=== PATIENT | male | born 1970 | race Caucasian/White ===

== ENCOUNTER 2019-12-11 17:10 | Outpatient (CLI) | payer OTHER, SELFPAY ==
--- NOTE | ~2019-12-11 | XR_ITS ---
XR cervical spine 4-5V 12/11/2019 17:38 Indication: Difficulty swallowing Procedure: 4 views of the cervical spine Comparison: No prior studies for comparison. Findings: Normal cervical lordosis. Vertebral body heights are maintained. Mild endplate degenerative changes at C4-5. No fracture or traumatic malalignment. There is mild multilevel facet and uncinate degenerative change. Lung apices are normal. Odontoid process is normal. No prevertebral soft tissue abnormality. Impression: 1: Mild cervical spondylosis. Reviewed, dictated and finalized at location A. UNT SOLUTIONS ANALYST Impression: 1: Mild cervical spondylosis.
== END 2019-12-11 17:11 | disposition home or self-care (01) ==
LOC: ANHIMG 17:18
PROVIDERS: PCP Family Medicine; Visit Provider Nurse Practitioner Family
DX: R13.10 Dysphagia, unspecified (principal); M25.78 Osteophyte, vertebrae; M47.892 Other spondylosis, cervical region
CPT/HCPCS: 72050

== ENCOUNTER 2020-01-01 12:34 | Emergency (ER) | payer OTHER, SELFPAY ==
--- NOTE | ~2020-01-01 | XR_ITS ---
EXAMINATION: XR lumbar spine 2-3V DATE: 01/01/2020 14:11 INDICATION: Low back pain. Fall. TECHNIQUE: 3 views of lumbar spine were obtained. COMPARISON: None. FINDINGS: Bone alignment is normal. Vertebral body heights are normal. There is mildly decreased disc height at L5-S1. There are endplate osteophytes at multiple levels. There is multilevel mild to mode rate facet joint osteoarthritis. IMPRESSION: 1. Mild lumbar spondylosis. Reviewed, dictated and finalized at location A. F BOX FINISHER IMPRESSION: 1. Mild lumbar spondylosis.
[2020-01-01 13:09] VITALS: BP 149/94; PULSE 80; RESP 18; TEMP 37.3; O2SAT 100
--- NOTE | 2020-01-01 13:40 | ED.BACK ---
HPI - Back Pain/Injury General Chief Complaint: Back Pain/Injury Stated Complaint: back pain Time Seen by Provider: 01/01/20 13:38 Source: patient Mode of arrival: ambulatory Limitations: no limitations History of Present Illness HPI Narrative: The pt is a 49 y/o male who presents to the ED c/o lower back pain secondary to a fall onset [id number] today. Pt states that he fell and landed on his bath tub. He notes that his pain radiates to the coccyx. He denies any numbness/tingling. MD elicited complaint: back pain Onset (ago): hour(s) (1.5-2) Location: lumbar spine ( Lower ) Radiation: other (Coccyx) Context: fall Associated symptoms: denies other symptoms Related Data Allergies Allergy/AdvReac Type Severity Reaction Status Date / Time No Known Drug Allergies Allergy Mild Verified 03/29/19 17:51 Review of Systems Review of Systems: All systems reviewed & are unremarkable except as noted in HPI and below Musculoskeletal: Musculoskeletal: Reports back pain (Lower back, radiates to coccyx) Neurologic: Denies numbness and Denies tingling PMFSH Past Medical History Medical History (Updated 01/01/20 @ 15:04 by Colby Esparza MD) Anxiety Surgical History Surgical History (Updated 01/01/20 @ 13:53 by Dieter Frank) No history of previous surgery Family History Family History (Updated 04/13/19 @ 13:55 by DOCTOR UNKNOWN) Other Hypertension Social History Social History Smoking status: Current every day smoker Alcohol intake: current Gender identity (if verbalized by the patient): Male Comments PCP: Dr. Gastelum Exam Const: General: cooperative, healthy appearing, comfortable, no acute distress, well developed, alert and awake; No confusion Orientation/consciousness: oriented to person, oriented to place, oriented to time, patient oriented x3 and No confusion Limitations: no limitations Neck: Neck: full ROM Resp: Effort & Inspection: normal respiratory effort, able to speak in complete sentences, no respiratory distress and not tachypneic Auscultation: clear to auscultation bilaterally, no crackles, no rales, no rhonchi and no wheezes Cardio: Rate: regular rate Rhythm: regular rhythm Back/Spine/Pelvis: Thoracic/Lumbar Spine: paraspinal muscle tenderness on the left in the lower lumbar, No thoracic spinal tenderness and No lumbar spinal tenderness Skin: General skin exam: normal color, no rashes or lesions noted, elasticity normal and turgor normal Neuro: General: oriented to person, oriented to place, oriented to time, patient oriented x3, tone normal and moves all extremities Extrem: General: normal to inspection, full ROM and capillary refill normal Psych: Mental Status: mental status grossly normal Speech and movement: Normal speech and movement present Affect: normal affect Attitude: cooperative Course Vital Signs Vital signs: Vital Signs Temperature 37.3 C 01/01/20 13:09 Pulse Rate 80 01/01/20 13:09 Respiratory Rate 18 01/01/20 13:09 Blood Pressure 149/94 H 01/01/20 13:09 Pulse Oximetry 100 01/01/20 13:09 Temperature 37.3 C 01/01/20 13:09 Pulse Rate 80 01/01/20 13:09 Respiratory Rate 18 01/01/20 13:09 Blood Pressure 149/94 H 01/01/20 13:09 Pulse Oximetry 100 01/01/20 13:09 MDM - Back Pain/Injury Imaging Data Radiologist's impression: ITS Impressions Lumbar Spine X-Ray 01/01/20 14:17 IMPRESSION: 1. Mild lumbar spondylosis. Discharge Plan Discharge Clinical Impression: Acute lumbar myofascial strain Qualifiers: Encounter type: initial encounter Qualified Code(s): S39.012A - Strain of muscle, fascia and tendon of lower back, initial encounter Patient Disposition: Home, Self-Care Condition: Improved Instructions: Antibiotic Form, Acute Low Back Pain (ED) Prescriptions: New naproxen [Naprosyn] 500 mg tablet 500 mg PO BID PRN (Reason: pain) Qty: 10 RF: 0 cyclobenzaprine 10 mg tablet
[2020-01-01] MEDS: KETOROLAC (*BKC) 60 MG/2 ML VIAL 30 MG IM (14:19)
[2020-01-01 15:50] VITALS: BP 162/100; PULSE 68; RESP 16; O2SAT 100
== END 2020-01-01 15:52 | disposition home or self-care (01) ==
PROVIDERS: Emergency Provider Emergency Medicine; PCP Family Medicine
DX: S39.012A Strain of muscle, fascia and tendon of lower back, initial encounter (principal); M47.816 Spondylosis without myelopathy or radiculopathy, lumbar region; F17.200 Nicotine dependence, unspecified, uncomplicated; W01.198A Fall on same level from slipping, tripping and stumbling with subsequent striking against other object, initial encounter
CPT/HCPCS: 72100; 96372; 99283; J1885

== ENCOUNTER 2020-01-22 08:54 | Outpatient (CLI) | payer OTHER, SELFPAY ==
--- NOTE | ~2020-01-22 | XR_ITS ---
EXAMINATION: XR barium swallow modified DATE: 01/22/2020 09:48 INDICATION: Dysphagia. TECHNIQUE: The patient was given barium-containing material of multiple consistencies to swallow by nimco fung speech pathologist while I performed fluoroscopy. Dose-area product was 2.7 Gy-cm2. 3.5 minutes fluoroscopy time FINDINGS: Oral Preparatory Stage: Within functional limits Oral Stage: Within functional limits Pharyngeal Phase: Mild laryngeal penetration, cleared; no aspiration Mild vallecular residue and mild pharyngeal wall residue Cervical/Esophageal Stage: Within functional limits IMPRESSION: Modified esophagram findings as above. Please refer [facility]. Reviewed, dictated and finalized at Location A. Reviewed, dictated and finalized at location A. IMPRESSION: Modified esophagram findings as above. Please refer to the speech t herapy report for specific recommendations.
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
== END 2020-01-22 08:55 | disposition home or self-care (01) ==
PROVIDERS: PCP Family Medicine; Visit Provider Family Medicine
DX: R13.10 Dysphagia, unspecified (principal); Z79.1 Long term (current) use of non-steroidal anti-inflammatories (NSAID)
CPT/HCPCS: 92611

== ENCOUNTER 2020-07-19 15:30 | Outpatient (RCR) | payer OTHER, SELFPAY ==
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
--- NOTE | 2020-06-23 16:40 | PTOPEVAL ---
PHYSICAL THERAPY PLAN OF CARE UPDATE AND PROGRESS REPORT Thank you for referring Ernesto Solis to [facility] [place].? The patient is scheduled to be seen for therapy? 1x/week for 4 weeks. Please review, sign, date and return this plan of care GIOVANNA. I agree with and certify that the following plan of care is medically necessary. Referring Physician Date Attending Provider: Cece Julio, COMBER TENDER-BC Progress Diagnosis cervicalgia Cause insidious Subjective Information Ernesto is here today with c/o Query Text:As Reported By Patient/ chronic neck pain. reports Family that when he really hurts he just tries to sleep it off. States that he will try to do an exercise but it generally does not work and he tries to sleep. States that when he does not hurt he will do his exercises as much as he can. States he is going to see a prenatal nurse for another scope. Has not gotten an appointment with the new othopedic doctor yet. States that he has headaches every day and this has no changed with therapy. Self Report Pain Assessment Upper Spine, Cervical Reported Pain Level 4 Pain Frequency Chronic,Continuous Pain Score Pain Score 4: Self Report Additional Pain Score Comments didn't fall asleep until 3: 30AM last night Cervical and Lumbar ROM Cervical ROM Cervical Flexion (0-60) 40 Query Text:Active in Degrees Cervical Extension (0-70) 55 Query Text:Active in Degrees Cervical Rotation Right (0-90) 30 Query Text:Active in Degrees Cervical Rotation Left (0-90) 45 Query Text:Active in Degrees Cervical ROM Comments patient notes popping in anterior neck when rotation cervical spine Upper Extremity Range of Motion General Upper Extremity Range of Motion Reason Not Measured WFL/Left,WFL/Right Upper Extremity Muscle Strength Testing Scapular/Shoulder Bilateral Scapular Retraction - Rhomboid 3- Fair - Scapular Retraction - Middle Trapezius 3- Fair - Scapular Retraction - Lower Trapezius 3- Fair - Scapular Protraction - Serratus 3- Fair - Shoulder Flexion Strength 4- Good - Shoulder Extension Strength 4 Good Shoulder Abduction Strength 4 Good Shoulder Medial Rotation Strength 4 Good Shoulder Lateral Rotation Strength 4 Good Muscle L
--- NOTE | 2020-06-29 10:38 | PCPTNOTE ---
Patient did not show up for scheduled appointment this date; Called and left voicemail with reminder for next appointment 07/06/20 @ 14:45.
--- NOTE | 2020-07-19 16:27 | PTOPEVAL ---
PHYSICAL THERAPY DISCHARGE NOTE Thank you for referring Ernesto Solis to [facility].? Please review, sign, date and return this plan of care GIOVANNA. I agree with and certify that the following plan of care is medically necessary. Referring Physician Date Attending Provider: Cece Julio, AUTOMOBILE MECHANIC ASSISTANT-BC Discharge cervicalgia Cause insidious Subjective Information Ernesto continues to report Query Text:As Reported By Patient/ pain in cervical spine that is Family functionally limiting and limiting his nutrition intake. States specifically that today the front of his neck feels really tight and as a result he is not been eating much today. States that most mornings he wakes up feeling as though he is choking. Self Report Pain Assessment Upper Spine, Cervical Reported Pain Level 2 Pain Frequency Chronic,Continuous Pain Behaviors Anxious,Grimacing,Guarding Cervical and Lumbar ROM Cervical ROM Cervical Flexion (0-60) 40 Query Text:Active in Degrees Cervical Extension (0-70) 55 Query Text:Active in Degrees Cervical Rotation Right (0-90) 45 Query Text:Active in Degrees Cervical Rotation Left (0-90) 60 Query Text:Active in Degrees Cervical ROM Comments patient notes popping in anterior neck when rotation cervical spine Upper Extremity Range of Motion General Upper Extremity Range of Motion Reason Not Measured WFL/Left,WFL/Right Gross Upper Extremity Range of Motion somewhat tight to elevation Comments motions because of short periscapular muscles and stiff thoracic spine Upper Extremity Muscle Strength Testing Scapular/Shoulder Bilateral Scapular Retraction - Rhomboid 3 Fair Scapular Retraction - Middle Trapezius 3 Fair Scapular Retraction - Lower Trapezius 3 Fair Scapular Protraction - Serratus 3 Fair Shoulder Flexion Strength 4+ Good + Shoulder Extension Strength 4+ Good + Shoulder Abduction Strength 4+ Good + Shoulder Medial Rotation Strength 5 Normal Shoulder Lateral Rotation Strength 5 Normal Muscle Length Testing Muscle Length Testing Scalene Group Muscle Length (R) Moderate Tightness,(L) Query Text: Moderate Tightness Latissmus Dorsi Muscle Length (R) Moderate Tightness,(L) Moderate Tightness Upper Trapezius Muscle Length (R) Moderate Tightness,(L) Moderate Tightness Levaetor Scapulae Muscle
== END 2020-08-01 11:11 | disposition home or self-care (01) ==
LOC: ANHPT 15:30
PROVIDERS: PCP Family Medicine; Visit Provider Nurse Practitioner Family
DX: M54.12 Radiculopathy, cervical region (principal)
CPT/HCPCS: 97110; 97140; 97162; 97163

== ENCOUNTER 2020-09-26 12:30 | Outpatient (RCR) | payer OTHER, SELFPAY ==
--- NOTE | 2020-08-03 15:25 | PTOPEVAL ---
PHYSICAL THERAPY EVALUATION AND PLAN OF CARE Thank you for referring Ernesto Solis to [facility].? The patient is scheduled to be seen for therapy? 2x/week for 4 weeks. Please review, sign, date and return this plan of care GIOVANNA. I agree with and certify that the following plan of care is medically necessary. Referring Physician Date Attending Provider: Cece Julio, PROFESSIONAL ENGINEER-BC Evaluation Problem Diagnosis low back pain Onset 2017 Cause football tackled Subjective Information Ernesto is here today for Query Text:As Reported By Patient/ evaluation of low back pain. Family Pain started in 2016 when was football tackeled (no playing football) and landed on his back and then hit his head. ( Was discharged on 07/19/2020 from treatment of cervical spine). He reports that his pain is really all the same. States that it all depends on what he is doing. He has had episodes where he is trying to stand up from a chair and he feels severe pain in the lower back that bring him to his knees. Last year was experiencing numbness/tingling /electrical feelings down the leg, but states he has not had that sensation in a while. He has recently been experiencing a tightness on the back of the right leg. Diagnostic Tests MRI For This Problem Yes: 2018: mild degen changes, mild facet stenosis, L5-S1 4m posterior bulge Self Report Pain Assessment Bilateral Spine, Lumbar Reported Pain Level 3 Pain Description Aching,Pulling,With Movement Pain Frequency Chronic,Continuous Lowest Pain Intensity 0 Greatest Pain Intensity 7 Pain Aggravating Factors Lifting Other Pain Aggravating Factors sit>stand, reaching overhead Pain Behaviors None Pain Score Pain Score 3: Self Report Cervical and Lumbar ROM Lumbar ROM Lumbar Flexion (0-90) 30 Query Text:Active in Degrees Lumbar Flexion Active Knee Query Text:Hands to: Lumbar Extension (0-40) 4 Query Text:Active in Degrees Lateral Rotation Right (0-45) 15 Query T
--- NOTE | 2020-08-24 13:28 | PCPTNOTE ---
Patient was seen today for 1st treatment since initial evaluation on 08/03/20. We were unable to reach him for scheduling appointments until today; therefore, POC will be extended until 09/20/2020.
--- NOTE | 2020-08-31 11:26 | PCPTNOTE ---
Patient did not show up for scheduled appointment this date; called and left voicemail reminding of next appointment on SaturdaySep 02 @ 1:45.
--- NOTE | 2020-09-02 14:15 | PCPTNOTE ---
Patient did not show up for scheduled appointment this date. Called and left a voicemail for Pt about missed appointment and reminded him of his next appointment on 09/05/20 at 14:00.
--- NOTE | 2020-09-08 14:49 | PCPTNOTE ---
Patient did not show up for scheduled appointment this date; Called patient who answered the phone stating he didn't even realized he had an appointment. Patient stated he has so many other things going on right now didn't think he had an appointment. Reminded about Saturday's appointment stating he will be there.
--- NOTE | 2020-09-19 12:48 | PCPTNOTE ---
Patient did not show up for scheduled appointment this date. Called and spoke with patient. He states he read his appointment time wrong and was unable to make it. He states he did try to call to let us know he would not make it. He will be here on , 09/22, for his next appointment.
--- NOTE | 2020-09-22 13:11 | PCPTNOTE ---
Patient did not show up for scheduled appointment this date; Called and left voicemail for next appointment September 26 @12:30.
--- NOTE | 2020-09-26 13:25 | PTOPEVAL ---
PHYSICAL THERAPY DISCHARGE NOTE Thank you for referring Ernesto Solis to [facility].? Please review, sign, date and return this plan of care GIOVANNA. I agree with and certify that the following plan of care is medically necessary. Referring Physician Date Attending Provider: Cece Julio, RAPID EXTRACTOR OPERATOR-BC Discharge Diagnosis low back pain Onset 2017 Cause football tackled Subjective Information It has been almost 2 months Query Text:As Reported By Patient/ since initial evaluation for Family patient's back pain. He continues to report significant pain that impairs his function. States today is a normal day, headache, backache, feeling off balance. States that his back really feels the same stating it feels alright when I leave here, but the next day it comes right back. States that he does try to do his stretches and exercises but also reports that he does not always do them when he has increased symptoms. Self Report Pain Assessment Bilateral Spine, Lumbar Reported Pain Level 4 Pain Description Aching,Pulling,With Movement Pain Frequency Chronic,Continuous Pain Aggravating Factors Lifting Other Pain Aggravating Factors sit>stand, reaching overhead Pain Behaviors None Interventions Used Interventions Used By Clinicians Exercise,Heat Cervical and Lumbar ROM Lumbar ROM Lumbar Flexion (0-90) 45 Query Text:Active in Degrees Lumbar Flexion Active Knee Query Text:Hands to: Lumbar Extension (0-40) 4 Query Text:Active in Degrees Lateral Rotation Right (0-45) 20 Query Text:Active in Degrees Lateral Rotation Left (0-45) 20 Query Text:Active in Degrees Lower Extremity Range of Motion General Lower Extremity Range of Motion Gross Lower Extremity Range of Motion generally WNL; 0deg hip IR at Comments 90deg. Lower Extremity Muscle Strength Testing Hip Strength Bilateral Hip Flexion Strength 5 Normal Hip Extension Strength 3+ Fair + Hip Abduction Strength 5 Normal Knee Strength Bilateral Knee Flexion Strength 5 Normal Knee Extension Strength 5 Normal Palpation Assessment Palpation Palpation severe tightness noted to bilate
== END 2020-10-17 11:25 | disposition home or self-care (01) ==
LOC: ANHPT 12:30
PROVIDERS: PCP Family Medicine; Visit Provider Nurse Practitioner Family
DX: M54.5 Low back pain (principal); M54.16 Radiculopathy, lumbar region
CPT/HCPCS: 97110; 97140; 97162

== ENCOUNTER 2021-01-12 17:11 | Outpatient (CLI) | payer MEDICARE, MEDICAID, SELFPAY ==
--- NOTE | ~2021-01-12 | XR_ITS ---
EXAMINATION: XR shoulder RT min 2V INDICATION: Right shoulder pain TECHNIQUE: Four views of the right shoulder are submitted. COMPARISON: None FINDINGS: Normal alignment. No fracture. Glenohumeral and acromioclavicular joint spaces are normal. Soft tissues are unremarkable. IMPRESSION: 1. No acute osseous abnormality. Reviewed, dictated and finalized at location A. FEEDER
--- NOTE | ~2021-01-12 | XR_ITS ---
EXAMINATION: XR wrist LT min 3V DATE: 01/12/2021 17:51 INDICATION: Left wrist pain after fall TECHNIQUE: Posteroanterior, ulnar deviation, oblique, and lateral views of the left wrist were obtain ed. COMPARISON: None available FINDINGS: There is no fracture, dislocation, or subluxation. The bones, soft tissues, and joint space s are normal. IMPRESSION: 1. No acute osseous abnormality. Reviewed, dictated and finalized at location A. H NURSE
--- NOTE | ~2021-01-12 | XR_ITS ---
EXAMINATION: XR hand LT min 3V DATE: 01/12/2021 17:51 INDICATION: Left hand pain TECHNIQUE: Posteroanterior, lateral, and oblique views of the affected hand were obtained. COMPARISON: None. FINDINGS: . There is no fracture, dislocation, or subluxation. The bones, soft tissues, and joint spa jason are normal. IMPRESSION: 1. No acute osseous abnormality. Reviewed, dictated and finalized at location A. ATOR SPECIALIST
== END 2021-01-12 17:12 | disposition home or self-care (01) ==
PROVIDERS: PCP Family Medicine
DX: M25.511 Pain in right shoulder (principal); M79.642 Pain in left hand
CPT/HCPCS: 73030; 73110; 73130

== ENCOUNTER 2021-03-15 18:50 | Emergency (ER) | payer MEDICARE, MEDICAID, SELFPAY ==
--- NOTE | ~2021-03-15 | XR_ITS ---
EXAMINATION: XR shoulder LT min 2V DATE: 03/15/2021 19:25 INDICATION: Left shoulder injury. TECHNIQUE: 5 views of left shoulder were obtained. COMPARISON: None. FINDINGS: Bone alignment is normal. No fracture. There is mild osteoarthritis of glenohumeral joint a nd acromioclavicular joint. IMPRESSION: 1. Mild polyarticular osteoarthritis. Reviewed, dictated and finalized at location A.
--- NOTE | ~2021-03-15 | XR_ITS ---
EXAMINATION: XR wrist RT min 3V DATE: 03/15/2021 19:25 INDICATION: Right wrist injury. TECHNIQUE: 4 views of right wrist were obtained. COMPARISON: None. FINDINGS: Bone alignment is normal. No fracture. Joint spaces are well maintained. IMPRESSION: 1. Normal right wrist. Reviewed, dictated and finalized at location A. IMPRESSION: 1. Normal right wrist.
[2021-03-15 18:54] VITALS: BP 136/89; PULSE 80; RESP 16; TEMP 36.4; O2SAT 96
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
[2021-03-15 19:52] VITALS: BP 134/85; PULSE 73; RESP 18; O2SAT 98
== END 2021-03-15 20:00 | disposition home or self-care (01) ==
LOC: ANHED 19:53
PROVIDERS: Emergency Provider Emergency Medicine; PCP Family Medicine
DX: S63.501A Unspecified sprain of right wrist, initial encounter (principal); F41.9 Anxiety disorder, unspecified; F17.200 Nicotine dependence, unspecified, uncomplicated; M19.012 Primary osteoarthritis, left shoulder; Y35.813A Legal intervention involving manhandling, suspect injured, initial encounter
CPT/HCPCS: 73030; 73110; 99284

== ENCOUNTER 2021-04-08 03:09 | Emergency (ER) | payer MEDICARE, MEDICAID, SELFPAY ==
--- NOTE | ~2021-04-08 | XR_ITS ---
EXAMINATION: XR chest 2V DATE: 04/08/2021 03:30 INDICATION: Sternal chest pain. TECHNIQUE: Frontal and lateral views of the chest were obtained. COMPARISON: Chest 2 views 06/26/2019 FINDINGS: There is mild scarring at the lung apices. No pleural effusion or pneumothorax. The heart s ize is normal. There is mild chronic anterior wedging of multiple vertebral bodies. IMPRESSION: 1. Stable mild scarring at the lung apices. Reviewed, dictated and finalized at location A.
[2021-04-08 03:10] VITALS: BP 154/104; PULSE 97; RESP 12; TEMP 37.2; O2SAT 98
--- NOTE | 2021-04-08 03:17 | ECG_ITS ---
Measurements Intervals [place] Rate: 95 P: 48 DC: 155 QRS: -33 QRSD: 103 T: 52 QT: 338 QTc: 427 Interpretive Statements SINUS RHYTHM LEFT AXIS DEVIATION INCOMPLETE RIGHT BUNDLE BRANCH BLOCK ANTEROSEPTAL INFARCT, AGE INDETERMINATE BASELINE ARTIFACT- II, III, AVR, AVF, V1, V3-V6 ABNORMAL ECG Electronically Signed On 04-08-2021 7:42:13 CDT by Yusuf Conley D.O.
[2021-04-08 03:21] VITALS: O2SAT 97
[2021-04-08 03:31] LABS: Basophils Absolute Auto 0.1 K/mm3 (0.0-0.1); Basophils Percent Auto 0.5 % (0.2-1.2); Eosinophils Absolute Auto 0.1 K/mm3 (0-0.3); Eosinophils Percent Auto 1.2 % (0-4.4); Hematocrit 43.9 % (42.0-52.0); Hemoglobin 14.9 g/dL (14.0-18.0); Immature Granulocyte Absolute 0.08 K/mm3 (0.00-0.031); Immature Granulocyte Percent A 0.8 % (0-0.5); Lymphocytes Percent Auto 17.8 % (18.3-44.2); Mean Corpuscular HGB Conc 33.9 g/dl (32-36); Mean Corpuscular Hemoglobin 29.2 pg (26-34); Mean Corpuscular Volume 85.9 fl (80-100); Monocytes Percent Auto 9.8 % (2.6-8.5); Neutrophils Absolute Auto 7.1 K/mm3 (1.3-6.7); Neutrophils Percent Auto 69.9 % (45.5-73.1); Platelet Count Result 193 k/mm3 (150-375); Red Blood Count 5.11 M/mm3 (4.6-6.20); Red Cell Distribution Width 15.2 % (11.5-14.5); White Blood Count 10.1 K/mm3 (4.5-10.0)
[2021-04-08 03:41] LABS: Anion Gap 12 mmol/L (8-16); Blood Urea Nitrogen 10 mg/dL (9-20); Calcium 9.2 mg/dL (8.4-10.2); Carbon Dioxide 25 mmol/L (22-30); Chloride 106 mmol/L (98-107); Estimated CRCL calculation 90 ml/min; Estimated Glomerular Filt Rate > 60; Glucose 96 mg/dL (75-110); INR 0.9; Partial Thromboplastin Time 29.3 SECONDS (22.3-36.8); Potassium 4.1 mmol/L (3.4-5.0); Sodium 143 mmol/L (137-145)
[2021-04-08 03:49] VITALS: BP 149/96; PULSE 70; RESP 21; O2SAT 98
[2021-04-08 03:53] LABS: Troponin I < 0.012 ng/mL (0.000-0.034)
[2021-04-08] MEDS: BELLADONNA ALK/PHENOB ELIX 10 ML, MAG HYDROX/ALUMINUM HYD/SIMETH 30 ML, LIDOCAINE HCL 2... PO (04:07)
--- NOTE | 2021-04-08 05:12 | ED.GENADULT ---
HPI - General Adult General Chief complaint: Chest Pain Stated complaint: CHEST PAIN X 20-30 MINUTES Time Seen by Provider: 04/08/21 03:19 History of Present Illness HPI narrative: Patient is a 51-year-old male who presents ER with chest pain. Low center of the chest. Ongoing intermittently throughout the day. Related to him drinking alcohol. Reports he drank a lot of vodka and also 9 [employer] tall boys. No nausea or vomiting. Unsure if it is related to acid reflux. No radiation of the pain. No exertional component. Unsure what improves his discomfort. Had some improvement with nitro by EMS. No history of coronary disease. Related Data Home Medications Medication Instructions Recorded Confirmed albuterol sulfate 90 mcg/actuation 1 puff INHALATION Q4H PRN 04/28/20 aerosol inhaler buspirone 5 mg tablet 5 mg PO DAILY tablet 04/28/20 lisinopril 10 mg tablet 10 mg PO DAILY 04/28/20 Allergies Allergy/AdvReac Type Severity Reaction Status Date / Time No Known Drug Allergies Allergy Mild Unknown Verified 04/08/21 03:19 Review of Systems Review of Systems: All systems reviewed & are unremarkable except as noted in HPI and below Constitutional: Constitutional: Denies chills, Denies fever(s) and Denies weakness ENT: Denies nasal congestion and Denies sore throat Cardiovascular: Cardiovascular: Reports chest pain, Denies rapid heart rate and Denies radiating jaw, neck or arm pain Respiratory: Respiratory: Denies cough, Denies dyspnea and Denies wheezing Gastrointestinal: Gastrointestinal: Denies abdominal pain, Denies nausea and Denies vomiting PMFSH Past Medical History Medical History (Updated 04/08/21 @ 06:54 by Edil Millan MD) Anxiety Hypertension Surgical History Surgical History No history of previous surgery Family History Family History Other Hypertension Social History Social History (Updated 04/08/21 @ 05:14 by Edil Millan MD) Smoking status: Current every day smoker Alcohol intake: current Gender identity (if verbalized by the patient): Male Exam Narrative: Exam Narrative: GENERAL: Well-appearing, well-nourished, and in no acute distress. HEAD: Normocephalic, atraumatic. ENT: Mucous membranes moist. Poor dentition. CHEST: Clear to auscultation. No respiratory distress. HEART: Regular rate and rhythm. Normal peripheral pulses. ABDOMEN: Soft, nontender, nondistended. EXTREMITIES: Normal range of motion. No edema. SKIN: Warm, dry, no rash. NEURO: Alert and oriented x3. PSYCH: Normal mood and affect. Course Course Emergency Course: Troponin negative x2. Received GI cocktail. Discharge home. Vital Signs Vital signs: Vital Signs Temperature 98.9 F 04/08/21 03:10 Pulse Rate 97 04/08/21 03:10 Respiratory Rate 12 04/08/21 03:10 Blood Pressure 154/104 H 04/08/21 03:10 Pulse Oximetry 98 04/08/21 03:10 Temperature 98.9 F 04/08/21 03:10 Pulse Rate 91 04/08/21 06:34 Respiratory Rate 19 04/08/21 06:34 Blood Pressure 135/103 H 04/08/21 06:34 Pulse Oximetry 97 04/08/21 06:34 Medical Decision Making Vital Signs Vital Signs: Vital Signs Temperature 98.9 F 04/08/21 03:10 Pulse Rate 97 04/08/21 03:10 Respiratory Rate 12 04/08/21 03:10 Blood Pressure 154/104 H 04/08/21 03:10 Pulse Oximetry 98 04/08/21 03:10 Temperature 98.9 F 04/08/21 03:10 Pulse Rate 91 04/08/21 06:34 Respiratory Rate 19 04/08/21 06:34 Blood Pressure 135/103 H 04/08/21 06:34 Pulse Oximetry 97 04/08/21 06:34 Lab Data Result diagrams: 04/08/21 03:23 04/08/21 03:23 Labs: Lab Results 04/08/21 04/08/21 04/08/21 Range/Units 03:23 03:23 03:23 WBC 10.1 H (4.5-10.0) K/mm3 RBC 5.11 (4.6-6.20) M/mm3 Hgb 14.9 (14.0-18.0) g/dL Hct 43.9 (42.0-52.0) % MCV 85.9 (80-100)
[2021-04-08 05:15] VITALS: BP 135/100; PULSE 71; RESP 16; O2SAT 97
[2021-04-08 06:34] VITALS: BP 135/103; PULSE 91; RESP 19; O2SAT 97
[2021-04-08 06:43] LABS: Troponin I < 0.012 ng/mL (0.000-0.034)
[2021-04-08 07:07] VITALS: BP 160/100; PULSE 72; RESP 14; O2SAT 99
== END 2021-04-08 07:07 | disposition home or self-care (01) ==
PROVIDERS: Emergency Provider Emergency Medicine; PCP Family Medicine
DX: K21.9 Gastro-esophageal reflux disease without esophagitis (principal); F41.9 Anxiety disorder, unspecified; I10 Essential (primary) hypertension; F17.200 Nicotine dependence, unspecified, uncomplicated; I45.10 Unspecified right bundle-branch block; R94.31 Abnormal electrocardiogram [ECG] [EKG]
CPT/HCPCS: 36415; 71046; 80048; 84484; 85025; 85610; 85730; 93005; 99284; A9270

== ENCOUNTER 2021-07-13 08:42 | Outpatient (CLI) | payer MEDICARE, MEDICAID, SELFPAY ==
--- NOTE | ~2021-07-13 | US_ITS ---
EXAMINATION: US right upper quadrant DATE: 07/13/2021 09:16 INDICATION: Elevated liver enzymes TECHNIQUE: Multiple grayscale and Doppler ultrasound images of the abdomen were obtained. COMPARISON: 03/02/2019 FINDINGS: The head, body, and tail of the pancreas are normal. The liver is normal with normal echoge nicity and echotexture. No surface nodularity. Normal hepatopetal flow in the main portal vein. The g allbladder is normal with no abnormal wall thickening, pericholecystic fluid or stones. The normal co mmon bile duct measures 3 mm. There was no sonographic Mcnulty sign. IMPRESSION: 1. No sonographic correlate for the patient's symptoms. Reviewed, dictated and finalized at location A.
== END 2021-07-13 08:43 | disposition home or self-care (01) ==
PROVIDERS: PCP Family Medicine; Visit Provider Nurse Practitioner
DX: R94.2 Abnormal results of pulmonary function studies (principal)
CPT/HCPCS: 76705

== ENCOUNTER 2022-01-30 10:31 | Emergency (ER) | payer MEDICARE, MEDICAID, SELFPAY ==
[2022-01-30 11:07] VITALS: BP 170/110; PULSE 81; RESP 16; TEMP 36.6; O2SAT 97
[2022-01-30 12:06] LABS: Add Urine Microscopic? YES; Appearance Urine Clear (Clear); Bilirubin Urine Negative (Negative); Blood Urine Negative (Negative); Color Urine Yellow (Yellow); Glucose Urine UA Negative (Negative); Ketones Urine Negative (Negative); Leukocyte Esterase Ur 1+ LEU/UL (Negative); Nitrate Urine Negative (Negative); Protein Urine Negative (Negative); Specific Grav Ur 1.009 (1.001-1.035); Urobilinogen Urine Negative mg/dL (<2.0); WBC Urine 21-30 /hpf
--- NOTE | 2022-01-30 12:24 | ED.SKABFB ---
HPI - Skin/Abscess/Foreign Bdy General Chief complaint: Skin/Abscess/Foreign Body Stated complaint: wound check Time Seen by Provider: 01/30/22 11:37 Source: patient History of Present Illness HPI narrative: Patient presents with multiple complaints she reports she has had ear irritation for approximately 1 month but now it is more red and swollen with a wound so he came to come to the ER is not been previously evaluated for it. Patient also reports pain with urination for approximately 1 week versus had sexual encounters with some and is not supposed to . Is concern for an infection Related Data Home Medications Medication Instructions Recorded Confirmed albuterol sulfate 90 mcg/actuation 1 puff INHALATION Q4H PRN 04/28/20 aerosol inhaler buspirone 5 mg tablet 5 mg PO DAILY tablet 04/28/20 lisinopril 10 mg tablet 10 mg PO DAILY 04/28/20 Allergies Allergy/AdvReac Type Severity Reaction Status Date / Time No Known Drug Allergies Allergy Mild Unknown Verified 04/08/21 03:19 Review of Systems Review of Systems: CONSTITUTIONAL: Denies fever, chills, or sweats. EYES: Denies visual changes, redness, or discharge. ENT: Denies rhinorrhea, congestion, sore throat, or otalgia. CARDIOVASCULAR: Denies chest pain, palpitations, or edema. RESPIRATORY: Denies cough or dyspnea. GASTROINTESTINAL: Denies abdominal pain, nausea, vomiting, or diarrhea. GENITOURINARY: Denies dysuria or hematuria. SKIN: Denies rash or itching. MUSCULOSKELETAL: Denies back pain, joint pain, or myalgia. NEUROLOGIC: Denies headache, numbness, dizziness, or weakness. PSYCHIATRIC: Denies anxiety or depression. All systems reviewed & are unremarkable except as noted in HPI and below PMFSH Past Medical History Medical History Anxiety Hypertension Surgical History Surgical History No history of previous surgery Family History Family History Other Hypertension Social History Social History Smoking status: Current every day smoker Alcohol intake: current Gender identity (if verbalized by the patient): Male Exam Narrative: GENERAL: Well-appearing, well-nourished, and in no acute distress. HEAD: Normocephalic, atraumatic. EYES: PERRLA and EOMI. ENT: Nares clear, no rhinorrhea or epistaxis. Mucous membranes moist. Mild erythema and edema to the right ER with a abrasion to the lobe. No focal fluctuance or purulent drainage NECK: Supple. No masses. No JVD EXTREMITIES: Normal range of motion. No edema. : No lymphadenopathy no urethral discharge SKIN: Warm, dry, no rash. NEURO: No focal deficits. Alert and oriented x3. PSYCH: Normal mood and affect. Course Vital Signs Vital signs: Vital Signs Temperature 36.6 C 01/30/22 11:07 Pulse Rate 81 01/30/22 11:07 Respiratory Rate 16 01/30/22 11:07 Blood Pressure 170/110 H 01/30/22 11:07 Pulse Oximetry 97 01/30/22 11:07 Temperature 36.6 C 01/30/22 11:07 Pulse Rate 81 01/30/22 11:07 Respiratory Rate 16 01/30/22 11:07 Blood Pressure 170/110 H 01/30/22 11:07 Pulse Oximetry 97 01/30/22 11:07 MDM - Skin/Abscess/Foreign Bdy MDM Narrative Medical decision making narrative: H&P as above, vss, pt looks clinically well, exam with concern for cellulitis to the right ear exam is normal, labs with UA appearing infected may represent STI or UTI will empirically cover for STI given patient's history, additional labs/img considered, symptomatic relief available as needed, on reevaluation pt continues to looks clinically well. Suspect cellulitis possibly STI or UTI, dns abscess, severe sepsis, necrotizing soft tissue infection. plan to tx/monitor as op w/ pcm f/u findings/plan discussed with pt, pt agree/comfortable with plan, return precautions given [place]
[2022-01-30] MEDS: cefTRIAXone 1 GM VIAL 0.5 GM IM (12:54)
== END 2022-01-30 13:00 | disposition home or self-care (01) ==
PROVIDERS: Emergency Provider Emergency Medicine; PCP Family Medicine
DX: H60.11 Cellulitis of right external ear (principal); A64 Unspecified sexually transmitted disease; N39.0 Urinary tract infection, site not specified
CPT/HCPCS: 81001; 87086; 87491; 87591; 96372; 99283; J0696

== ENCOUNTER 2023-06-18 00:28 | Emergency (ER) | payer MEDICARE, MEDICAID, SELFPAY ==
[2023-06-18] VITALS (41 sets, daily range): BP systolic 100–156; BP diastolic 69–110; PULSE 46–64; RESP 12–21; TEMP 36.7–37.1; O2SAT 93–100
--- NOTE | ~2023-06-18 | CT_ITS ---
Noncontrast CT scan of the lumbar spine CLINICAL HISTORY: Status post fall TECHNIQUE: Axial noncontrast imaging of the lumbar spine was performed. Sagittal and coronal reformat roni images were constructed. Dose reduction technique was used on this scan by utilizing automated ex posure control and iterative reconstruction technique. The dose-length product (DLP) was 455.65 mGy-c m. FINDINGS: There is no fracture or subluxation of the lumbar spine. Vertebral bodies maintain normal h eight and alignment. There is moderate degenerative disc narrowing at L5-S1. Remaining disc spaces ar e relatively well-preserved. At L1-L2, there is no disc bulge or herniation. No spinal canal stenosis or definite neural foraminal narrowing. At L2-L3, there is no disc bulge or herniation. No spinal canal stenosis. Probable minimal bilateral neural foraminal narrowing. At L3-L4, there is no disc bulge or herniation. No spinal canal stenosis. Probable minimal bilateral neural foraminal narrowing. At L4-L5, there is minimal disc bulge. No central canal stenosis. Probable mild bilateral neural fora malgorzata narrowing. At L5-S1, there is mild disc bulge/protrusion. No definite spinal canal stenosis. There is moderate t o severe bilateral neural foraminal narrowing. Paravertebral soft tissues are unremarkable. Possible mild urinary bladder wall thickening. Impression: No fracture or subluxation. Mild degenerative spondylosis, as above. Possible urinary bladder wall thickening. Correlate for cystitis. Reviewed, dictated and finalized at [facility]. Impression: No fracture or subluxation. Mild degenerative spondylosis, as above. Possible urinary bladder wall thickening. Correlate for cystitis.
--- NOTE | 2023-06-18 00:40 | ED.GENADULT ---
HPI - General Adult General Chief complaint: Alcohol <Miguel Garner PA-C - Last Filed: 06/18/23 04:36> Stated complaint: ETOH+ BACK PAIN X A FEW YEARS <LOR Gibson Last Filed: 06/18/23 04:36> Time Seen by Provider: 06/18/23 00:33 <Miguel Garner PA-C - Last Filed: 06/18/23 04:36> Source: patient <LOR Gibson Last Filed: 06/18/23 04:36> Mode of arrival: EMS <LOR Gibson Last Filed: 06/18/23 04:36> Limitations: no limitations <LOR Gibson Last Filed: 06/18/23 04:36> History of Present Illness HPI narrative: This is a 53-year-old male who presents to the ED via EMS for chief complaint of acute on chronic lower back pain. Per EMS patient was intoxicated upon their arrival and told them about his lower back pain that has been going on since 2017. EMS states they have picked him up for EtOH multiple times in the past. Patient states that he has had chronic back pain and it worsened tonight after falling in the bathtub. Patient states that he had a mechanical fall by tripping over the tub while trying to get in. Denies head injury. Denies headache. Denies LOC. He reports this exacerbated his lower back pain. Denies radicular symptoms at this time. Denies numbness or weakness, bowel or bladder dysfunction. Denies any further site of pain or injury. When asked about alcohol intake, patient reports that he drank a sixpack of beer this evening. <Miguel Garner PA-C - Last Filed: 06/18/23 04:36> Related Data Home medications: Home Medications Medication Instructions Recorded Confirmed albuterol sulfate 90 mcg/actuation 1 puff inhalation Q4H PRN 04/28/20 01/24/23 aerosol inhaler Shortness Of Breath Or Wheezing buspirone 5 mg tablet 5 mg PO DAILY 04/28/20 01/24/23 lisinopril 10 mg tablet 40 mg PO DAILY 04/28/20 01/24/23 amlodipine 5 mg tablet 5 mg PO DAILY 10/16/22 01/24/23 omeprazole 20 mg capsule,delayed 20 mg PO DAILY 10/16/22 01/24/23 release <Miguel Garner PA-C Last Filed: 06/18/23 04:36> Allergies/adverse reactions: Allergies Allergy/AdvReac Type Severity Reaction Status Date / Time No Known Drug Allergies Allergy Mild Unknown Verified 01/24/23 08:20 <Miguel Garner PA-C Last Filed: 06/18/23 04:36> Review of Systems Review of Systems: All systems as dictated in HPI <Miguel Garner PA-C Last Filed: 06/18/23 04:36> FORMERLY [facility] Past Medical History Medical History: Medical History Anxiety Asthma Chronic GERD Hypertension DEION (obstructive sleep apnea) Smoker <Miguel Garner PA-C Last Filed: 06/18/23 04:36> Surgical History Surgical History: Surgical History No history of previous surgery <Miguel Garner PA-C Last Filed: 06/18/23 04:36> Family History Family History: Family History Other Hypertension <Miguel Garner PA-C Last Filed: 06/18/23 04:36> Social History Social History: Social History Smoking status: Current every day smoker Alcohol intake: unknown Substance use type: unknown Living arrangements: alone Gender identity (if verbalized by the patient): Male Spiritual care concerns: No <LOR Gibson Last Filed: 06/18/23 04:36> Exam Narrative: GENERAL: Clinically intoxicated during exam. He is able to fully cooperate with the exam. HEAD: Normocephalic, atraumatic. EYES: PERRLA and EOMI. ENT: Nares clear, no rhinorrhea or epistaxis. Mucous membranes moist. Oropharynx without tonsillar hypertrophy exudate or other lesions. NECK: Supple. No adenopathy or masses. CHEST: No respiratory distress. Clear to auscultation. No wheezes rales or rhonchi HEART: Regular rate and rhythm. No murmur heard. Normal peripheral pulses. ABDOMEN: Soft, nontender, nondistended, no
[2023-06-18] MEDS: SODIUM CHLORIDE 0.9% IV 1,000 ML 999 ML IV CONT ×2 (01:06→03:15)
[2023-06-18] MEDS: KETOROLAC 15 MG/ML VIAL (*BKC) IV PUSH (01:06)
[2023-06-18 01:34] LABS: Ethanol 370 mg/dL (<10)
--- NOTE | 2023-06-18 10:20 | PCCCNOTE ---
Met w/ patient per request of RN for transportation resources. Patient states that he is an alcoholic and he does not have any friends or family that can pick him up. He does not have his phone with him. He needs to get to [place]. Asked patient if he is wanting resources for alcholism and if he has ever done rehab or AA. He states that he has been an alcoholic since age 4, and he has done rehab once but he didn't feel that it was beneficial. Explained about our alcohol and substance abuse community partner, Marcin and he is agreeable for our construction representative Vincenzo to reach out to him and call him after DC-phone # [phone]. Patient has a debit card but does not have enough money for a cab. Patient offered bus tokens and he is agreeable and feel that it would be helpful as he needs to get to [place]. Patient provided pamphlets for various routes and connectors from [place] to [place]-highlighted the different routes and highlighted the info number on the back of the pamphlet for assistance. Patient feels comfortable and does not have any questions. Provided water bottles x2 and a soda by his bedside RN for travels today.
== END 2023-06-18 10:22 | disposition home or self-care (01) ==
PROVIDERS: Physician Assistant; Emergency Provider Emergency Medicine; PCP Family Medicine
DX: F10.129 Alcohol abuse with intoxication, unspecified (principal); M54.50 Low back pain, unspecified; G89.29 Other chronic pain; J45.909 Unspecified asthma, uncomplicated; I10 Essential (primary) hypertension; K21.9 Gastro-esophageal reflux disease without esophagitis; G47.33 Obstructive sleep apnea (adult) (pediatric); F41.9 Anxiety disorder, unspecified; F17.200 Nicotine dependence, unspecified, uncomplicated; Y90.8 Blood alcohol level of 240 mg/100 ml or more; Z79.899 Other long term (current) drug therapy
CPT/HCPCS: 36415; 72131; 80307; 96361; 96374; 99284; J1885; J7030

== ENCOUNTER 2023-09-05 09:43 | Day surgery (SDC) | payer MEDICARE, MEDICAID, SELFPAY ==
[2022-10-16 14:09] VITALS: BMI 21.2
--- NOTE | 2022-12-25 13:37 | P.PNAN_ITS ---
Anes - Initial Pre Proc Eval Procedure: Operation Date: 12/26/22 12:00 Proposed Procedures p Esophagogastroduodenoscopy - Jatinder Pichardo MD Date/Time: 12/25/22 13:37 Surgeon: Jatinder Pichardo MD Pre Op Diagnosis: Dysphagia Patient Data Age: 52 Gender: M Height: 1.83 m Weight: 71 kg Allergies Allergy/AdvReac Type Severity Reaction Status Date / Time No Known Drug Allergies Allergy Mild Unknown Verified 12/13/22 09:58 Home Medications Medication Instructions Recorded Confirmed Type albuterol sulfate 90 mcg/actuation 1 puff inhalation Q4H PRN 04/28/20 12/13/22 History aerosol inhaler Shortness Of Breath Or Wheezing buspirone 5 mg tablet 5 mg PO DAILY 04/28/20 12/13/22 History lisinopril 10 mg tablet 40 mg PO DAILY 04/28/20 12/13/22 History doxycycline monohydrate 100 mg 100 mg PO BID 7 days #14 caps 01/30/22 12/13/22 Rx capsule amlodipine 5 mg tablet 5 mg PO DAILY 10/16/22 12/13/22 History omeprazole 20 mg capsule,delayed 20 mg PO DAILY 10/16/22 12/13/22 History release Results Review: All pre-operative results and documents have been reviewed as part of the pre- operative evaluation. [facility] Past Medical History Medical History (Updated 12/25/22 @ 13:38 by Babak Paniagua MD) Anxiety Asthma Chronic GERD Hypertension DEION (obstructive sleep apnea) Surgical History Surgical History No history of previous surgery Family History Family History Other Hypertension Social History Social History Smoking status: Current every day smoker Alcohol intake: unknown Substance use type: unknown Living arrangements: alone Gender identity (if verbalized by the patient): Male Spiritual care concerns: No Anes - Eval Final PreProcedure Day of Procedure 12/25/22 13:37 Patient weight: overweight Heart: regular rate and rhythm Lungs: clear to auscultation and normal air movement Airway: Mallampati scale class II Neurological: alert and oriented Last oral intake: >/= 8 hours ASA classification: II Emergent: no Anesthetic plan: proceed Anesthesia type and monitoring: general GIVS Results Review: All pre-operative results and documents have been reviewed as part of the pre- operative evaluation. Informed Consent: The patient's anesthetic plan and its attendant risks and benefits were discussed with the patient/family/POA. Questions were solicited and answers prov ided to the satisfaction of the patient/family/POA.
--- NOTE | 2023-01-07 14:16 | SUR.PREOP ---
pt states no change in current health hx from previous interview/cancellation. no new medications.
--- NOTE | 2023-01-16 09:18 | P.PNAN_ITS ---
Anes - Initial Pre Proc Eval Procedure: Operation Date: 01/16/23 13:30 Proposed Procedures p Esophagogastroduodenoscopy - Jatinder Pichardo MD Date/Time: 01/16/23 09:18 Surgeon: Jatinder Pichardo MD Pre Op Diagnosis: Dysphagia Patient Data Age: 52 Gender: M Height: 1.83 m Weight: 71 kg Allergies Allergy/AdvReac Type Severity Reaction Status Date / Time No Known Drug Allergies Allergy Mild Unknown Verified 12/13/22 09:58 Home Medications Medication Instructions Recorded Confirmed Type albuterol sulfate 90 mcg/actuation 1 puff inhalation Q4H PRN 04/28/20 12/13/22 History aerosol inhaler Shortness Of Breath Or Wheezing buspirone 5 mg tablet 5 mg PO DAILY 04/28/20 12/13/22 History lisinopril 10 mg tablet 40 mg PO DAILY 04/28/20 12/13/22 History doxycycline monohydrate 100 mg 100 mg PO BID 7 days #14 caps 01/30/22 12/13/22 Rx capsule amlodipine 5 mg tablet 5 mg PO DAILY 10/16/22 12/13/22 History omeprazole 20 mg capsule,delayed 20 mg PO DAILY 10/16/22 12/13/22 History release Patient hx anesthesia problems: none Family hx anesthesia problems: none Results Review: All pre-operative results and documents have been reviewed as part of the pre- operative evaluation. ON LICENSE OF [facility] Past Medical History Medical History Anxiety Asthma Chronic GERD Hypertension DEION (obstructive sleep apnea) Smoker Surgical History Surgical History No history of previous surgery Family History Family History Other Hypertension Social History Social History Smoking status: Current every day smoker Alcohol intake: unknown Substance use type: unknown Living arrangements: alone Gender identity (if verbalized by the patient): Male Spiritual care concerns: No Anes - Eval Final PreProcedure Day of Procedure 01/16/23 09:18 Patient weight: overweight Heart: regular rate and rhythm Lungs: clear to auscultation and normal air movement Airway: Mallampati scale class II Neurological: alert and oriented Last oral intake: >/= 8 hours ASA classification: II Emergent: no Anesthetic plan: proceed Anesthesia type and monitoring: general GIVS Results Review: All pre-operative results and documents have been reviewed as part of the pre- operative evaluation. Informed Consent: The patient's anesthetic plan and its attendant risks and benefits were discussed with the patient/family/POA. Questions were solicited and answers provided to the satisfaction of the patient/family/POA.
[2023-01-24 08:19] VITALS: BMI 22.6
--- NOTE | 2023-02-06 10:13 | WPDANESEPPF ---
Anes - Initial Pre Proc Eval Procedure: Operation Date: 02/06/23 13:00 Proposed Procedures p Esophagogastroduodenoscopy - Jatinder Pichardo MD Date/Time: 02/06/23 10:13 Surgeon: Jatinder Pichardo MD Pre Op Diagnosis: Dysphagia Patient Data Age: 52 Gender: M Height: 1.83 m Weight: 75.7 kg Allergies Allergy/AdvReac Type Severity Reaction Status Date / Time No Known Drug Allergies Allergy Mild Unknown Verified 01/24/23 08:20 Home Medications Medication Instructions Recorded Confirmed Type albuterol sulfate 90 mcg/actuation 1 puff inhalation Q4H PRN 04/28/20 01/24/23 History aerosol inhaler Shortness Of Breath Or Wheezing buspirone 5 mg tablet 5 mg PO DAILY 04/28/20 01/24/23 History lisinopril 10 mg tablet 40 mg PO DAILY 04/28/20 01/24/23 History doxycycline monohydrate 100 mg 100 mg PO BID 7 days #14 caps 01/30/22 01/24/23 Rx capsule amlodipine 5 mg tablet 5 mg PO DAILY 10/16/22 01/24/23 History omeprazole 20 mg capsule,delayed 20 mg PO DAILY 10/16/22 01/24/23 History release Patient hx anesthesia problems: none Family hx anesthesia problems: none Results Review: All pre-operative results and documents have been reviewed as part of the pre-operative evaluation. [facility] Past Medical History Medical History Anxiety Asthma Chronic GERD Hypertension DEION (obstructive sleep apnea) Smoker Surgical History Surgical History No history of previous surgery Family History Family History Other Hypertension Social History Social History Smoking status: Current every day smoker Alcohol intake: unknown Substance use type: unknown Living arrangements: alone Gender identity (if verbalized by the patient): Male Spiritual care concerns: No Anes - Eval Final PreProcedure Day of Procedure 02/06/23 10:13 Patient weight: normal Heart: regular rate and rhythm Lungs: clear to auscultation and normal air movement Airway: Mallampati scale class II Neurological: alert and oriented Last oral intake: >/= 8 hours ASA classification: II Emergent: no Anesthetic plan: proceed Anesthesia type and monitoring: general GIVS Results Review: All pre-operative results and documents have been reviewed as part of the pre-operative evaluation. Informed Consent: The patient's anesthetic plan and its attendant risks and benefits were discussed with the patient/family/POA. Questions were solicited and answers provided to the satisfaction of the patient/family/POA.
[2023-08-16 07:23] VITALS: BMI 23.2
[2023-09-05 11:42] VITALS: BP 125/98; PULSE 83; RESP 16; TEMP 36.8; O2SAT 100
[2023-09-05] MEDS: LACTATED RINGERS 1,000 ML 150 ML IV CONT (11:52)
--- NOTE | 2023-09-05 11:55 | PM.HPGS ---
History of Present Illness History of Present Illness Consent: Risks, benefits, and alternatives have been discussed and questions answered. Patient agrees to proceed with procedure. Chief complaint: Dysphagia Narrative: Ernesto Solis is a 53 year old male with dysphagia to solids, had similar episode in 2017 with EGD and dilation of esophagus, also treated for h pylori , relatively asymptomatic until recently. Review of Systems Constitutional: Constitutional: Denies headache(s) and Denies weakness Eyes: Eyes: Denies blurry vision ENT: Reports Normal hearing present, Denies headache(s) and Denies neck pain Cardiovascular: Cardiovascular: Denies chest pain and Denies dyspnea Respiratory: Respiratory: Denies dyspnea Gastrointestinal: Gastrointestinal: Reports no additional gastrointestinal complaints Genitourinary: Genitourinary: Denies dysuria Musculoskeletal: Musculoskeletal: Denies neck pain Integumentary/Breasts: Skin/Breast: Denies dry skin Neurologic: Reports Normal hearing present, Denies headache(s) and Denies weakness Psychiatric: Psychiatric: Denies anxiety Endocrine: Endocrine: Denies change in body appearance Hematologic/Lymphatic: Hematologic/Lymphatic: Denies easy bleeding Allergic/Immunologic: Allergic/Immunologic: Denies urticaria PMFSH Past Medical History Medical History Anxiety Asthma Chronic GERD Hypertension DEION (obstructive sleep apnea) Smoker Surgical History Surgical History No history of previous surgery Family History Family History Other Hypertension Social History Social History Smoking status: Current every day smoker Alcohol intake: unknown Substance use type: unknown Living arrangements: alone Gender identity (if verbalized by the patient): Male Spiritual care concerns: No Meds Home Medications and Allergies Home Medications Medication Instructions Recorded Confirmed Type albuterol sulfate 90 mcg/actuation 1 puff inhalation Q4H PRN 04/28/20 09/05/23 History aerosol inhaler Shortness Of Breath Or Wheezing lisinopril 10 mg tablet 40 mg PO DAILY 04/28/20 09/05/23 History amlodipine 5 mg tablet 5 mg PO DAILY 10/16/22 09/05/23 History Allergies Allergy/AdvReac Type Severity Reaction Status Date / Time No Known Drug Allergies Allergy Mild Unknown Verified 09/05/23 11:41 Vital Signs Vital Signs - 24 hr 09/05/23 11:42 Temperature 98.2 F Pulse Rate 83 Respiratory Rate 16 Blood Pressure 125/98 H Pulse Oximetry 100 Oxygen Delivery Room Air Exam Const: General: comfortable and no acute distress HENMT: Face/Nose/Sinus: Normal nares present Eyes: General: appearance normal, both eyes and all related structures Neck: Neck: no JVD Resp: Auscultation: clear to auscultation bilaterally Cardio: Rate: regular rate Rhythm: regular rhythm GI: Inspection: non-distended GI Palp: Yes Soft to palpation Skin: General skin exam: normal color Neuro: General: gait normal Speech: normal speech Extrem: General: normal to inspection Psych: Mental Status: mental status grossly normal Assessment and Plan Assessment and plan (1) Dysphagia: Code(s): R13.10 - Dysphagia, unspecified Status: Acute Assessment and Plan: egd with bx, will assess if needs dilation
--- NOTE | 2023-09-05 11:56 | WPDANESEPPF ---
Anes - Initial Pre Proc Eval Procedure: Operation Date: 09/05/23 12:30 Proposed Procedures p Esophagogastroduodenoscopy - Jatinder Pichardo MD Date/Time: 09/05/23 11:56 Surgeon: Jatinder Pichardo MD Pre Op Diagnosis: Dysphagia Patient Data Age: 53 Gender: M Height: 1.83 m Weight: 76.1 kg Last Vital Signs Temp 36.8 C 09/05/23 11:42 Pulse 83 09/05/23 11:42 Resp 16 09/05/23 11:42 BP 125/98 H 09/05/23 11:42 Pulse Ox 100 09/05/23 11:42 O2 Del Method Room Air 09/05/23 11:42 Allergies Allergy/AdvReac Type Severity Reaction Status Date / Time No Known Drug Allergies Allergy Mild Unknown Verified 09/05/23 11:41 Home Medications Medication Instructions Recorded Confirmed Type albuterol sulfate 90 mcg/actuation 1 puff inhalation Q4H PRN 04/28/20 09/05/23 History aerosol inhaler Shortness Of Breath Or Wheezing lisinopril 10 mg tablet 40 mg PO DAILY 04/28/20 09/05/23 History amlodipine 5 mg tablet 5 mg PO DAILY 10/16/22 09/05/23 History Patient hx anesthesia problems: none Family hx anesthesia problems: none Results Review: All pre-operative results and documents have been reviewed as part of the pre-operative evaluation. [facility] Past Medical History Medical History Anxiety Asthma Chronic GERD Hypertension DEION (obstructive sleep apnea) Smoker Surgical History Surgical History No history of previous surgery Family History Family History Other Hypertension Social History Social History Smoking status: Current every day smoker Alcohol intake: unknown Substance use type: unknown Living arrangements: alone Gender identity (if verbalized by the patient): Male Spiritual care concerns: No Anes - Eval Final PreProcedure Day of Procedure 09/05/23 11:56 Patient weight: normal Heart: regular rate and rhythm Lungs: clear to auscultation Airway: Mallampati scale class II and special considerations poor dentition Last oral intake: >/= 8 hours ASA classification: III Emergent: no Anesthetic plan: proceed Anesthesia type and monitoring: general GIVS and standard monitoring Results Review: All pre-operative results and documents have been reviewed as part of the pre-operative evaluation. Informed Consent: The patient's anesthetic plan and its attendant risks and benefits were discussed with the patient/family/POA. Questions were solicited and answers provided to the satisfaction of the patient/family/POA.
[2023-09-05 12:09] VITALS: BP 105/78; PULSE 65; RESP 14; O2SAT 97
--- NOTE | 2023-09-05 12:15 | WPDANESPN ---
Anes - Prog Note Post-Op Date/Time: 09/05/23 12:15 Cardiovascular status: normal Respiratory status: normal Airway patency: baseline Mental status: baseline Post-Op hydration status: normal Vital Signs: Last Vital Signs Temp 36.8 C 09/05/23 11:42 Pulse 65 09/05/23 12:09 Resp 14 09/05/23 12:09 BP 105/78 09/05/23 12:09 Pulse Ox 97 09/05/23 12:09 O2 Del Method Room Air 09/05/23 12:09 Pain Score (VAS): 0/10 I/O: Intake & Output 09/04/23 09/05/23 09/05/23 23:59 07:59 15:59 Intake Total 200 Balance 200 Patient Feedback: Patient satisfied with anesthetic care.
[2023-09-05 12:19] VITALS: BP 101/73; PULSE 55; RESP 14; O2SAT 100
[2023-09-05 12:29] VITALS: BP 117/86; PULSE 54; RESP 14; O2SAT 100
== END 2023-09-05 12:44 | disposition home or self-care (01) ==
PROVIDERS: PCP Family Medicine; Visit Provider Internal Medicine Gastroenterology
PROC: 0DJ08ZZ Inspection of Upper Intestinal Tract, Via Natural or Artificial Opening Endoscopic (ICD-10-PCS; CPT 43235; principal; 2023-09-05 12:30)
DX: R13.19 Other dysphagia (principal); K21.00 Gastro-esophageal reflux disease with esophagitis, without bleeding; K44.9 Diaphragmatic hernia without obstruction or gangrene
CPT/HCPCS: 43239

== ENCOUNTER 2023-09-05 12:00 | Outpatient (NON) | payer MEDICARE, MEDICAID, SELFPAY | END 2023-09-05 12:01 | disposition home or self-care (01) | PROVIDERS: PCP Family Medicine; Visit Provider Internal Medicine Gastroenterology | DX: K21.9 Gastro-esophageal reflux disease without esophagitis (principal) | CPT/HCPCS: 88305 ==

== ENCOUNTER 2023-09-06 18:17 | Emergency (ER) | payer MEDICARE, MEDICAID, SELFPAY ==
--- NOTE | ~2023-09-06 | XR_ITS ---
EXAMINATION: XR shoulder RT min 2V INDICATION: Right shoulder pain TECHNIQUE: Four views of the right shoulder are submitted. COMPARISON: 01/12/2021 FINDINGS: Normal alignment. No fracture. Glenohumeral and acromioclavicular joint spaces are normal. Soft tissues are unremarkable. IMPRESSION: 1. No acute osseous abnormality. Reviewed, dictated and finalized at location F.
[2023-09-06 18:29] VITALS: BP 133/74; PULSE 78; RESP 20; TEMP 36.6; O2SAT 97
--- NOTE | 2023-09-06 18:52 | ED.GENADULT ---
[facility] - General Adult General Chief complaint: Extremity Problem,Nontraumatic Stated complaint: right shoulder pain Time Seen by Provider: 09/06/23 18:36 Source: patient Mode of arrival: ambulatory Limitations: no limitations History of Present Illness HPI narrative: This is a 53-year-old male with PMH of GERD, HTN who presents to the ED with chief complaint of right shoulder pain for the past 2 weeks. Reports that the pain radiates into the right side of the neck and head. Reports it also radiates into the right upper extremity. Reports he has occasional paresthesias in the right upper extremity as well. States he has known history of cervical disc disease. States the pain is specifically worsened with any range of motion of the right shoulder. He is unsure of any specific injury to the area. Denies chest pain, shortness of breath, syncope, nausea, vomiting, weakness, fevers, chills. Related Data Home Medications Medication Instructions Recorded Confirmed albuterol sulfate 90 mcg/actuation 1 puff inhalation Q4H PRN 04/28/20 09/05/23 aerosol inhaler Shortness Of Breath Or Wheezing lisinopril 10 mg tablet 40 mg PO DAILY 04/28/20 09/05/23 amlodipine 5 mg tablet 10 mg PO DAILY 10/16/22 09/05/23 cyclobenzaprine 10 mg tablet 10 mg PO BID 09/05/23 09/05/23 Allergies Allergy/AdvReac Type Severity Reaction Status Date / Time No Known Drug Allergies Allergy Mild Unknown Verified 09/06/23 18:17 Review of Systems Review of Systems: All systems as dictated in HPI [facility] Past Medical History Medical History Anxiety Asthma Chronic GERD Hypertension DEION (obstructive sleep apnea) Smoker Surgical History Surgical History No history of previous surgery Family History Family History Other Hypertension Social History Social History Smoking packs per day: 1.5 Smoking cigarettes per day: 30.0 Years smoked: 39 Smoking pack-years: 58.50 Smoking status: Current every day smoker Tobacco type: cigarettes Alcohol intake: unknown Drinks per week: 40 Substance use type: unknown Living arrangements: alone Gender identity (if verbalized by the patient): Male Spiritual care concerns: No Exam Narrative: GENERAL: Well-appearing, well-nourished, and in no acute distress. HEAD: Normocephalic, atraumatic. EYES: PERRLA and EOMI. ENT: Nares clear, no rhinorrhea or epistaxis. Mucous membranes moist. Oropharynx without tonsillar hypertrophy exudate or other lesions. NECK: Supple. No adenopathy or masses. CHEST: No respiratory distress. Clear to auscultation. No wheezes rales or rhonchi HEART: Regular rate and rhythm. No murmur heard. Normal peripheral pulses. ABDOMEN: Soft, nontender, nondistended, normal active bowel sounds. MSK: Tenderness to palpation to the right posterior shoulder. Pain is reproduced with any range of motion of the right shoulder. No deformity or step-off. Compartments are soft. SKIN: Warm, dry, no rash. NEURO: Alert and oriented x3. No focal deficits. 5 out of 5 strength and sensation in the upper and lower extremities. PSYCH: Normal mood and affect. Course Vital Signs Vital signs: Vital Signs Temperature 97.8 F 09/06/23 18:29 Pulse Rate 78 09/06/23 18:29 Respiratory Rate 20 09/06/23 18:29 Blood Pressure 133/74 09/06/23 18:29 Pulse Oximetry 97 09/06/23 18:29 Oxygen Delivery Room Air 09/06/23 18:29 Temperature 97.8 F 09/06/23 18:29 Pulse Rate 78 09/06/23 18:29 Respiratory Rate 20 09/06/23 18:29 Blood Pressure 133/74 09/06/23 18:29 Pulse Oximetry 97 09/06/23 18:29 Oxygen Delivery Room Air 09/06/23 18:29 Medical Decision Making MDM Narrative Medical decision making narrative: This is a 53-year-old male who presents to the ED with chief complaint of 10
[2023-09-06] MEDS: KETOROLAC 30 MG/ML VIAL (*BKC) IM (19:03)
== END 2023-09-06 20:13 | disposition home or self-care (01) ==
PROVIDERS: Emergency Provider Physician Assistant; PCP Family Medicine
DX: M25.511 Pain in right shoulder (principal); I10 Essential (primary) hypertension; F17.210 Nicotine dependence, cigarettes, uncomplicated
CPT/HCPCS: 73030; 96372; 99283; J1885

== ENCOUNTER 2023-09-10 10:13 | Outpatient (CLI) | payer MEDICARE, MEDICAID, SELFPAY ==
--- NOTE | 2023-09-10 10:22 | ECG_ITS ---
Measurements Intervals [place] Rate: 55 P: 44 GA: 178 QRS: -52 QRSD: 104 T: 18 QT: 388 QTc: 374 Interpretive Statements SINUS BRADYCARDIA INCOMPLETE RIGHT BUNDLE BRANCH BLOCK [90+ ms QRS DURATION, TERMINAL R IN V1/V2, 40+ ms S IN I/aVL/V4/V5/V6] LEFT ANTERIOR FASCICULAR BLOCK [QRS AXIS <= -45, QR IN I, RS IN II] ANTEROSEPTAL MYOCARDIAL INFARCTION , OF INDETERMINATE AGE [40+ ms Q WAVE IN V1-V4] COMPARED TO ECG 04/08/2021 03:14:38 SINUS BRADYCARDIA NOW PRESENT Electronically Signed On 09-10-2023 11:43:17 CDT by Marquita Solis M.D.
== END 2023-09-10 10:14 | disposition home or self-care (01) ==
LOC: ANHCARD 10:17
PROVIDERS: PCP Family Medicine; Visit Provider Anesthesiology
DX: I10 Essential (primary) hypertension (principal); Z01.818 Encounter for other preprocedural examination; I45.10 Unspecified right bundle-branch block; I44.4 Left anterior fascicular block
CPT/HCPCS: 93005

== ENCOUNTER 2023-09-12 01:58 | Day surgery (SDC) | payer MEDICARE, MEDICAID, SELFPAY ==
--- NOTE | 2023-09-05 16:22 | PC.NURSE ---
Report to the Outpatient Waiting Room, entrance under the green pavilion located off [facility], at time 0600 on date 09/12/23. Planned Procedure Time: 0730. Time changes happen often and if your time is changed the preop area will call you the afternoon before. - You and your visitor will be asked to self-screen and do not enter if you have any COVID symptoms. - A mask is optional within the hospital at this time. Patients may have clear liquids (water, carbonated beverages, clear teas, apple juice) until 3 hours prior to surgery with a maximum of 20 ounces. 0430 - No food from midnight until time of surgery - Infants may have breast milk until 4 hours before surgery, formula 6 hours prior to surgery. - Children will be allowed to drink immediately following surgery. If applicable, please bring a bottle or sippy cup to assist with drinking. Juice, water, soda, and popsicles are readily available. For infants on formula, please bring formula the day of surgery. Pacifiers are allowed. Take the following medications with a SIP of water the morning of surgery: amlodipine DO NOT STOP ANY OF YOUR OTHER PRESCRIPTION MEDICATIONS PRIOR TO SURGERY ?EXCEPT THE FOLLOWING Medications to discontinue per physician cyclobenzaprine, lisinopril, omeprazole Date to take last dose 09/11/23 Please no make-up, nail mozambican, hairspray, perfume, deodorant, or body powder the day of surgery. No jewelry (including any body piercings) or valuables the day of surgery, leave them at home. Please take a shower or bath the night before, or the morning of, surgery with an antibacterial soap. Wear comfortable, loose fitting clothing. Children are encouraged to wear pajamas. - Jewelry must be removed prior to entering the operating room. Rings and piercings that are not removed may be cut off. - The hospital will not accept responsibility for valuables. - Please leave all valuables, including medications, at home the day of surgery. If you are going home after surgery, a licensed pile driver must drive you home. - NO public transportation without another adult if you receive anesthesia. - We recommend that an adult stay with you for 24 hours following discharge. - We also recommend that you do not drive, make important decision, drink alcoholic beverages, or take any drugs that were not prescribed by your health care provider for at least 24 hours after your discharge time. For Pediatric surgeries, we recommend two adults accompany the child home. Follow any additional instructions given to you from your surgeon. If you or anyone in your household have experienced Covid symptoms in the past week, please notify your surgeon or the nurse liaison at the phone number below for possible testing. Telephone instructions given to Patient- Ernesto Solis and asked if any additional questions and then verbalized understanding. Patient advised to call surgeon office or pre surgery nurse liaison [phone] if any additional questions.
[2023-09-05 16:34] VITALS: BMI 23.2
--- NOTE | 2023-09-10 17:12 | P.HP_ITS ---
History of Present Illness History of Present Illness Consent: Risks, benefits, and alternatives have been discussed and questions answered. Patient agrees to proceed with procedure. Chief complaint: Urethral Stricture Narrative: Ernesto Solis is a 53 year old male With recurrent urethral stricture disease who has marked obstructive voiding symptoms. We have decided to forego office cystoscopy and proceed straight to cystoscopy with urethral dilatation. as before, he is aware the risk including, but not limited to, adverse cardiopulmonary events, recurrent stricture, need to wear catheter and hematuria. Review of Systems Review of Systems: All systems reviewed & are unremarkable except as noted in HPI and below PMFSH Past Medical History Medical History Anxiety Asthma Chronic GERD Hypertension DEION (obstructive sleep apnea) Smoker Surgical History Surgical History No history of previous surgery Family History Family History Other Hypertension Social History Social History Smoking packs per day: 1.5 Smoking cigarettes per day: 30.0 Years smoked: 39 Smoking pack-years: 58.50 Smoking status: Current every day smoker Tobacco type: cigarettes Alcohol intake: unknown Drinks per week: 40 Substance use type: unknown Living arrangements: alone Gender identity (if verbalized by the patient): Male Spiritual care concerns: No Meds Home Medications and Allergies Home Medications Medication Instructions Recorded Confirmed Type albuterol sulfate 90 mcg/actuation 1 puff inhalation Q4H PRN 04/28/20 09/05/23 History aerosol inhaler Shortness Of Breath Or Wheezing lisinopril 10 mg tablet 40 mg PO DAILY 04/28/20 09/05/23 History amlodipine 5 mg tablet 10 mg PO DAILY 10/16/22 09/05/23 History cyclobenzaprine 10 mg tablet 10 mg PO BID 09/05/23 09/05/23 History omeprazole 20 mg capsule,delayed 20 mg PO .daily #90 caps 09/05/23 09/05/23 Rx release cyclobenzaprine 10 mg tablet 10 mg PO HS PRN muscle spasm #14 09/06/23 Rx tabs Allergies Allergy/AdvReac Type Severity Reaction Status Date / Time No Known Drug Allergies Allergy Mild Unknown Verified 09/06/23 18:17 Exam Const: General: no acute distress Resp: Effort & Inspection: normal respiratory effort GI: Inspection: non-distended GI Palp: No abdominal tenderness and No Guarding due to palpation present (GI) Auscultation: normal bowel sounds Assessment and Plan Assessment and plan (1) Bulbous urethral stricture: Code(s): N35.912 - Unspecified bulbous urethral stricture, male Status: Acute Assessment and Plan: * Cystoscopy with urethral dilatation
--- NOTE | 2023-09-12 06:24 | WPDHPUPDATE1 ---
History and Physical Update Update Date/Time: 09/12/23 06:24 History and Physical has been reviewed, including an updated exam of the patient. There are NO changes in the patient's condition. Risks, benefits, and alternatives have been discussed and questions answered. Patient agrees to proceed with procedure.
--- NOTE | 2023-09-12 07:02 | P.PNAN_ITS ---
Anes - Initial Pre Proc Eval Procedure: Operation Date: 09/12/23 07:30 Proposed Procedures p Cystoscopy, Urethral Dilatation - Jeffery Cruz MD Date/Time: 09/12/23 07:02 Surgeon: Jeffery Cruz MD Pre Op Diagnosis: Urethral Stricture Patient Data Age: 53 Gender: M Height: 1.83 m Weight: 77.7 kg Allergies Allergy/AdvReac Type Severity Reaction Status Date / Time No Known Drug Allergies Allergy Mild Unknown Verified 09/12/23 06:46 Home Medications Medication Instructions Recorded Confirmed Type albuterol sulfate 90 mcg/actuation 1 puff inhalation Q4H PRN 04/28/20 09/12/23 History aerosol inhaler Shortness Of Breath Or Wheezing lisinopril 10 mg tablet 40 mg PO DAILY 04/28/20 09/12/23 History amlodipine 5 mg tablet 10 mg PO DAILY 10/16/22 09/12/23 History cyclobenzaprine 10 mg tablet 10 mg PO BID 09/05/23 09/12/23 History omeprazole 20 mg capsule,delayed 20 mg PO .daily #90 caps 09/05/23 09/12/23 Rx release cyclobenzaprine 10 mg tablet 10 mg PO HS PRN muscle spasm #14 09/06/23 09/12/23 Rx tabs Patient hx anesthesia problems: none Family hx anesthesia problems: none Results Review: All pre-operative results and documents have been reviewed as part of the pre- operative evaluation. [facility] Past Medical History Medical History Anxiety Asthma Chronic GERD Hypertension DEION (obstructive sleep apnea) Smoker Surgical History Surgical History No history of previous surgery Family History Family History Other Hypertension Social History Social History Smoking packs per day: 1.5 Smoking cigarettes per day: 30.0 Years smoked: 39 Smoking pack-years: 58.50 Smoking status: Current every day smoker Tobacco type: cigarettes Alcohol intake: unknown Drinks per week: 40 Substance use type: unknown Living arrangements: alone Gender identity (if verbalized by the patient): Male Spiritual care concerns: No Anes - Eval Final PreProcedure Day of Procedure 09/12/23 07:02 Patient weight: normal Heart: regular rate and rhythm Lungs: decreased breath sounds Airway: Mallampati scale class II Neurological: alert and oriented Last oral intake: >/= 8 hours ASA classification: III Emergent: no Anesthetic plan: proceed Anesthesia type and monitoring: general LMA and standard monitoring Results Review: All pre-operative results and documents have been reviewed as part of the pre-operative evaluation. Informed Consent: The patient's anesthetic plan and its attendant risks and benefits were discussed with the patient/family/POA. Questions were solicited and answers provided to the satisfaction of the patient/family/POA.
[2023-09-12] MEDS: LACTATED RINGERS 1,000 ML 30 ML IV CONT (07:30)
[2023-09-12 07:31] VITALS: BP 146/96; PULSE 56; RESP 20; TEMP 36.7; O2SAT 100
[2023-09-12] MEDS: ceFAZolin 2 GM/D5W 50 ML 2 GM/50 ML BAG IVPB (08:21)
[2023-09-12] MEDS: LIDOCAINE HCL 2% GEL UROJET 10 ML PKG MUCOUS MEM (08:36)
[2023-09-12 08:46] VITALS: BP 114/80; PULSE 49; RESP 12; O2SAT 96
--- NOTE | 2023-09-12 08:46 | P.OP_ITS ---
Procedure Note - Detailed Date of Procedure 09/12/23 Pre-op Diagnosis Urethral Stricture Post-op Diagnosis Same Procedure Performed Cystoscopy, urethral dilatation Surgeon Jeffery Cruz MD Anesthesia MAC Description of Procedure Patient brought to the operative suite was prepped draped in routine sterile fas hion while in dorsal lithotomy position after the uneventful administration of systemic sedation. Cystoscopy undertaken with a 16 F flexible cystoscope. He is found to have a significant bulbous urethral stricture (actually too short strictures by about 1 cm). These are easily dilated from 16 F to 28 F with Dejon sounds. Repeat cystoscopy shows no significant urethral injury. The bladder was endoscopically normal without foreign body or neoplasm. Bladder mucosa is hyperemia. He has a single orthotopic ureteral orifice bilaterally. Bladder was drained with a 16 F catheter in he was taken to the outpatient recovery area in good condition Drains No Pathology None sent Complications No immediate complications Condition Stable
[2023-09-12 09:15] VITALS: BP 126/84; PULSE 54
== END 2023-09-12 09:44 | disposition home or self-care (01) ==
PROVIDERS: PCP Family Medicine; Visit Provider Urology
PROC: 0T7D8ZZ Dilation of Urethra, Via Natural or Artificial Opening Endoscopic (ICD-10-PCS; CPT 52281; principal; 2023-09-12 07:30)
DX: N35.912 Unspecified bulbous urethral stricture, male (principal); I10 Essential (primary) hypertension; F41.9 Anxiety disorder, unspecified; J45.909 Unspecified asthma, uncomplicated; K21.9 Gastro-esophageal reflux disease without esophagitis; G47.33 Obstructive sleep apnea (adult) (pediatric); F17.210 Nicotine dependence, cigarettes, uncomplicated; Z79.51 Long term (current) use of inhaled steroids
CPT/HCPCS: 52281; 36415; 51702; 80048; 81001; 85025; 85610; 87086; 93005; 99283; J0690; J2250; J2405; J2704; J3010; J7120

== ENCOUNTER 2023-09-12 14:36 | Emergency (ER) | payer MEDICARE, MEDICAID, SELFPAY ==
[2023-09-12 14:36] VITALS: BP 152/116; PULSE 68; RESP 18; TEMP 37; O2SAT 97
[2023-09-12 15:07] LABS: Basophils Absolute Auto 0.1 K/mm3 (0.0-0.1); Basophils Percent Auto 0.5 % (0.2-1.2); Eosinophils Absolute Auto 0.3 K/mm3 (0-0.3); Eosinophils Percent Auto 2.8 % (0-4.4); Hematocrit 42.3 % (42.0-52.0); Hemoglobin 13.9 g/dL (14.0-18.0); Immature Granulocyte Absolute 0.03 K/mm3 (0.00-0.031); Immature Granulocyte Percent A 0.3 % (0-0.5); Lymphocytes Absolute Auto 1.67 K/mm3 (0.9-3.2); Lymphocytes Percent Auto 17.9 % (18.3-44.2); Mean Corpuscular HGB Conc 32.9 g/dl (32-36); Mean Corpuscular Hemoglobin 29.6 pg (26-34); Mean Platelet Volume 10.1 fl (7.4-10.4); Monocytes Absolute Auto 0.8 K/mm3 (0.1-0.6); Monocytes Percent Auto 8.3 % (2.6-8.5); Neutrophils Absolute Auto 6.6 K/mm3 (1.3-6.7); Neutrophils Percent Auto 70.2 % (45.5-73.1); Platelet Count Result 200 k/mm3 (150-375); Red Cell Distribution Width 14.6 % (11.5-14.5); White Blood Count 9.4 K/mm3 (4.5-10.0)
[2023-09-12 15:14] LABS: Bacteria Urine None Seen /hpf; Non Pathogenic Casts 0-2; RBC Urine >100 /hpf (0-2); Squamous Epithelial Cell Urine Occasional /hpf (Few); WBC Urine 21-50 /hpf
[2023-09-12 15:16] LABS: Anion Gap 7 mmol/L (8-16); Blood Urea Nitrogen 16 mg/dL (9-20); Calcium 9.2 mg/dL (8.4-10.2); Carbon Dioxide 26 mmol/L (22-30); Chloride 108 mmol/L (98-107); Estimated CRCL calculation 82 ml/min; Estimated Glomerular Filt Rate > 60; Glucose 115 mg/dL (65-110); Potassium 3.9 mmol/L (3.4-5.0); Sodium 141 mmol/L (137-145)
[2023-09-12 15:17] LABS: INR 0.9; Prothrombin Time 12.4 Seconds (11.1-14.7)
[2023-09-12 15:21] LABS: Appearance Urine Clear (Clear); Bilirubin Urine Negative (Negative); Blood Urine 3+ (Negative); Color Urine Light Red (Yellow); Glucose Urine UA Negative (Negative); Ketones Urine Negative (Negative); Leukocyte Esterase Ur 1+ LEU/UL (Negative); Nitrate Urine Negative (Negative); Protein Urine Negative (Negative); Specific Grav Ur 1.009 (1.001-1.035); Urobilinogen Urine 0.2 mg/dL (<2.0)
[2023-09-12 15:22] LABS: Add Urine Microscopic? YES
--- NOTE | 2023-09-12 16:22 | ED.MALEGU ---
HPI - Male Genitourinary General Chief complaint: Urogenital-Male Stated complaint: bleeding post procedure Time Seen by Provider: 09/12/23 14:38 Source: patient Mode of arrival: ambulatory Limitations: no limitations History of Present Illness HPI Narrative: 53-year-old s/p urethral stricture dilatation earlier this morning was brought in by EMS from home with complaints of bleeding from his penis for past 1 hour. Complaint: other (Recent surgery) Duration: constant Location: penis Relieving factors: none Exacerbating factors: none Context: new medication Associated symptoms: Reports denies other symptoms Related Data Home Medications Medication Instructions Recorded Confirmed albuterol sulfate 90 mcg/actuation 1 puff inhalation Q4H PRN 04/28/20 09/12/23 aerosol inhaler Shortness Of Breath Or Wheezing lisinopril 10 mg tablet 40 mg PO DAILY 04/28/20 09/12/23 amlodipine 5 mg tablet 10 mg PO DAILY 10/16/22 09/12/23 cyclobenzaprine 10 mg tablet 10 mg PO BID 09/05/23 09/12/23 Allergies Allergy/AdvReac Type Severity Reaction Status Date / Time No Known Drug Allergies Allergy Mild Unknown Verified 09/12/23 14:48 Review of Systems Review of Systems: All systems reviewed & are unremarkable except as noted in HPI and below Constitutional: Constitutional: Reports no additional constitutional complaints Eyes: Eyes: Reports no additional eye complaints ENT: Reports system reviewed and no additional complaints, except as documented Cardiovascular: Cardiovascular: Reports no additional cardiovascular complaints Respiratory: Respiratory: Reports no additional respiratory complaints Gastrointestinal: Gastrointestinal: Reports no additional gastrointestinal complaints Genitourinary: Genitourinary: Reports as per HPI Musculoskeletal: Musculoskeletal: Reports no additional musculoskeletal complaints Integumentary/Breasts: Skin/Breast: Reports system reviewed and no additional complaints, except as docu PMFSH Past Medical History Medical History Anxiety Asthma Chronic GERD Hypertension DEION (obstructive sleep apnea) Smoker Surgical History Surgical History No history of previous surgery Family History Family History Other Hypertension Social History Social History Smoking packs per day: 1.5 Smoking cigarettes per day: 30.0 Years smoked: 39 Smoking pack-years: 58.50 Smoking status: Current every day smoker Tobacco type: cigarettes Alcohol intake: unknown Drinks per week: 40 Substance use type: unknown Living arrangements: alone Gender identity (if verbalized by the patient): Male Spiritual care concerns: No Exam Narrative: GENERAL: Well-appearing, well-nourished, and in no acute distress. HEAD: Normocephalic, atraumatic. EYES: PERRLA and EOMI. ENT: Nares clear, no rhinorrhea or epistaxis. Mucous membranes moist. NECK: Supple. CHEST: Clear to auscultation. No respiratory distress. HEART: Regular rate and rhythm. No murmur heard. Normal peripheral pulses. ABDOMEN: Soft, nontender, nondistended, normal active bowel sounds. blood through his urethral meatus EXTREMITIES: Normal range of motion. No edema. SKIN: Warm, dry, no rash. NEURO: No focal deficits. Alert and oriented x3. PSYCH: Normal mood and affect. Course Course Emergency Course: Discussed with Dr. Silver recommended the Anderson catheter Vital Signs Vital signs: Vital Signs Temperature 37.0 C 09/12/23 14:36 Pulse Rate 68 09/12/23 14:36 Respiratory Rate 18 09/12/23 14:36 Blood Pressure 152/116 H 09/12/23 14:36 Pulse Oximetry 97 09/12/23 14:36 Oxygen Delivery Room Air 09/12/23 14:36 Temperature 37.0 C 09/12/23 14:36 Pulse Rate 68 09/12/23 14:36 Respiratory Rate 18 09/12/23 14:36 Blood Pressure
[2023-09-12 16:35] VITALS: BP 161/108; PULSE 63; O2SAT 100
== END 2023-09-12 16:37 | disposition home or self-care (01) ==
PROVIDERS: Emergency Provider Family Medicine
DX: N99.820 Postprocedural hemorrhage of a genitourinary system organ or structure following a genitourinary system procedure (principal); R82.998 Other abnormal findings in urine; I10 Essential (primary) hypertension; J45.909 Unspecified asthma, uncomplicated; K21.9 Gastro-esophageal reflux disease without esophagitis; G47.33 Obstructive sleep apnea (adult) (pediatric); F17.210 Nicotine dependence, cigarettes, uncomplicated
CPT/HCPCS: 36415; 51702; 80048; 81001; 85025; 85610; 87086; 99283

== ENCOUNTER 2024-04-23 13:01 | Emergency (ER) | payer MEDICARE, MEDICAID, SELFPAY ==
[2024-04-23] VITALS (9 sets, daily range): BP systolic 139–160; BP diastolic 97–121; PULSE 82–91; RESP 14–20; TEMP 37.1; O2SAT 96–100
--- NOTE | ~2024-04-23 | XR_ITS ---
EXAMINATION: XR chest 2V 04/23/2024 13:45 INDICATION: Chest pain PROCEDURE: 2 view chest COMPARISON: 03/29/2019 FINDINGS: The lungs are clear. The cardiomediastinal silhouette is within normal limits. There are no pleural effusions. There is no pneumothorax suspected. IMPRESSION: 1: NO ACUTE CARDIOPULMONARY DISEASE. Reviewed, dictated and finalized at location B.
--- NOTE | 2024-04-23 13:09 | ECG_ITS ---
Test Date: 2024-04-23 13:04:55 Measurements Intervals [place] Rate: 86 P: 51 PA: 161 QRS: -60 QRSD: 98 T: 53 QT: 343 QTc: 411 Interpretive Statements SINUS RHYTHM INCOMPLETE RIGHT BUNDLE BRANCH BLOCK [90+ ms QRS DURATION, TERMINAL R IN V1/V2, 40+ ms S IN I/aVL/V4/V5/V6] LEFT ANTERIOR FASCICULAR BLOCK [QRS AXIS <= -45, QR IN I, RS IN II] CONSIDER PREVIOUS ANTERIOR INFARCTION ABNORMAL ECG No previous ECG available for comparison Electronically Signed On 04-24-2024 06:57:02 CDT by Damian Silva M.D.
--- NOTE | 2024-04-23 13:10 | ED.CHESTPAIN ---
HPI - Chest Pain General Chief Complaint: Chest Pain Stated Complaint: CHEST PAIN Time Seen by Provider: 04/23/24 13:07 History of Present Illness HPI narrative: Patient is a 54-year-old male history of hypertension, hyperlipidemia, daily alcohol use here with acute onset chest pain that began around 7:00 a.m. this morning. Patient states that he was drinking heavily last night and around 3- 3:30 a.m. he took Viagra. He did not have intercourse following this. he states his chest pain continues to be present, is midsternal, is unsure if it is changed with exertion. He states that radiates into his left shoulder and left neck and is associated with diaphoresis and lightheadedness. He denies prior cardiac history but does have a significant family history of both of his parents having cardiac issues. His last stress test was when he was 17 years old. He has been fairly noncompliant with his medications including his cholesterol medication over the last 1 month. He notes chronic right upper quadrant abdominal pain which is present today. He took no medications for his symptoms prior to calling EMS. Related Data Home Medications Medication Instructions Recorded Confirmed albuterol sulfate 90 mcg/actuation 1 puff inhalation Q4H PRN 04/28/20 09/12/23 aerosol inhaler Shortness Of Breath Or Wheezing lisinopril 10 mg tablet 40 mg PO DAILY 04/28/20 09/12/23 amlodipine 5 mg tablet 10 mg PO DAILY 10/16/22 09/12/23 cyclobenzaprine 10 mg tablet 10 mg PO BID 09/05/23 09/12/23 Allergies Allergy/AdvReac Type Severity Reaction Status Date / Time No Known Drug Allergies Allergy Mild Unknown Verified 09/12/23 14:48 Review of Systems Review of Systems: All systems reviewed & are unremarkable except as noted in HPI and below PMFSH Past Medical History Medical History Anxiety Asthma Chronic GERD Fullness after eating Hypertension DEION (obstructive sleep apnea) Smoker Surgical History Surgical History No history of previous surgery Family History Family History Other Hypertension Social History Social History Smoking packs per day: 1.5 Smoking cigarettes per day: 30.0 Years smoked: 39 Smoking pack-years: 58.50 Smoking status: Current every day smoker Tobacco type: cigarettes Alcohol intake: unknown Drinks per week: 40 Substance use type: unknown Living arrangements: alone Gender identity (if verbalized by the patient): Male Spiritual care concerns: No Exam Narrative: GENERAL: Well-appearing, well-nourished, and in no acute distress. HEAD: Normocephalic, atraumatic. EYES: PERRLA and EOMI. ENT: Nares clear. Mucous membranes moist. NECK: Supple. CHEST: Clear to auscultation. No respiratory distress. HEART: Regular rate and rhythm. Normal peripheral pulses. ABDOMEN: Soft, nontender, nondistended. EXTREMITIES: Normal range of motion. No edema. SKIN: Warm, dry, no rash. NEURO: No focal deficits. Alert and oriented x3. PSYCH: Normal mood and affect. Course Course Emergency Course: Chart review performed, patient here for chest pain that began around 7:00 a.m. this morning. Reportedly took Viagra at 4:00 a.m.. No nitro given in route. History of hypertension. Chest pain radiates to neck, jaw and down left arm. Triage vitals grossly normal. Patient seen evaluated, nontoxic appearing. He does appear to be in some pain. Continues to have chest pain. He did take Viagra this morning, will avoid nitroglycerin that this time. Will provide patient with morphine, Zofran, aspirin. His EKG does show some borderline ST elevations in V2 however in comparison to prior EKG from last year this appears to be unchanged. Cardiac workup initiated. Will additionally do liver function tests and lipase as patient is a heavy drinker
[2024-04-23 13:20] LABS: Basophils Absolute Auto 0.1 K/mm3 (0.0-0.1); Eosinophils Absolute Auto 0.1 K/mm3 (0-0.3); Eosinophils Percent Auto 1.3 % (0-4.4); Hematocrit 42.6 % (42.0-52.0); Hemoglobin 14.6 g/dL (14.0-18.0); Immature Granulocyte Absolute 0.06 K/mm3 (0.00-0.031); Immature Granulocyte Percent A 0.7 % (0-0.5); Mean Corpuscular HGB Conc 34.3 g/dl (32-36); Mean Corpuscular Hemoglobin 29.4 pg (26-34); Mean Corpuscular Volume 85.7 fl (80-100); Mean Platelet Volume 9.6 fl (7.4-10.4); Monocytes Absolute Auto 0.7 K/mm3 (0.1-0.6); Monocytes Percent Auto 7.8 % (2.6-8.5); Neutrophils Absolute Auto 6.4 K/mm3 (1.3-6.7); Neutrophils Percent Auto 73.2 % (45.5-73.1); Platelet Count Result 238 k/mm3 (150-375); Red Blood Count 4.97 M/mm3 (4.6-6.20); Red Cell Distribution Width 14.6 % (11.5-14.5); White Blood Count 8.8 K/mm3 (4.5-10.0)
[2024-04-23] MEDS: ONDANSETRON INJ 4 MG/2 ML VIAL IV PUSH (13:23)
[2024-04-23 13:35] LABS: Alanine Aminotransferase 35 U/L (6-50); Albumin Level 4.9 g/dL (3.5-5.1); Alkaline Phosphatase 78 U/L (38-126); Anion Gap 13 mmol/L (4-12); Aspartate Amino Transferase 46 U/L (17-59); Bilirubin,Total 0.5 mg/dL (0.2-1.3); Blood Urea Nitrogen 7 mg/dL (9-20); Calcium 9.4 mg/dL (8.4-10.2); Carbon Dioxide 19 mmol/L (22-30); Chloride 109 mmol/L (98-107); Estimated CRCL calculation 100 ml/min; Estimated Glomerular Filt Rate > 60; Glucose 99 mg/dL (65-110); Lipase 71 U/L (23-300); Potassium 4.4 mmol/L (3.4-5.0); Sodium 141 mmol/L (137-145)
[2024-04-23 13:36] LABS: INR 0.9; Prothrombin Time 12.4 Seconds (11.1-14.7)
[2024-04-23 13:38] LABS: Partial Thromboplastin Time 24.9 Seconds (22.3-36.8)
[2024-04-23 13:46] LABS: Troponin I < 0.012 ng/mL (0.000-0.034)
[2024-04-23 13:51] LABS: Ethanol 98 mg/dL (<10)
--- NOTE | 2024-04-23 15:56 | ECG_ITS ---
Test Date: 2024-04-23 16:01:16 Measurements Intervals [place] Rate: 79 P: 51 TN: 173 QRS: -63 QRSD: 93 T: 43 QT: 357 QTc: 411 Interpretive Statements SINUS RHYTHM INCOMPLETE RIGHT BUNDLE BRANCH BLOCK [90+ ms QRS DURATION, TERMINAL R IN V1/V2, 40+ ms S IN I/aVL/V4/V5/V6] LEFT ANTERIOR FASCICULAR BLOCK [QRS AXIS <= -45, QR IN I, RS IN II] CONSIDER PREVIOUS ANTERIOR INFARCTION ABNORMAL ECG Compared to ECG 04/23/2024 13:04:55 No significant changes Electronically Signed On 04-24-2024 07:02:07 CDT by Damian Silva M.D.
[2024-04-23 16:25] LABS: Troponin I < 0.012 ng/mL (0.000-0.034)
== END 2024-04-23 17:36 | disposition home or self-care (01) ==
PROVIDERS: Emergency Provider Student in an Organized Health Care Education/Training Program; PCP Family Medicine
DX: R07.2 Precordial pain (principal); T46.4X6A Underdosing of angiotensin-converting-enzyme inhibitors, initial encounter; R10.11 Right upper quadrant pain; G89.29 Other chronic pain; I10 Essential (primary) hypertension; E78.5 Hyperlipidemia, unspecified; J45.909 Unspecified asthma, uncomplicated; K21.9 Gastro-esophageal reflux disease without esophagitis; G47.33 Obstructive sleep apnea (adult) (pediatric); F17.210 Nicotine dependence, cigarettes, uncomplicated; Z79.899 Other long term (current) drug therapy; I45.2 Bifascicular block; R94.31 Abnormal electrocardiogram [ECG] [EKG]
CPT/HCPCS: 36415; 71046; 80053; 80307; 83690; 84484; 85025; 85610; 85730; 93005; 96374; 99284; J2405

== ENCOUNTER 2024-06-03 10:08 | Outpatient (CLI) | payer MEDICARE, MEDICAID, SELFPAY ==
--- NOTE | 2024-06-03 11:00 | NEURO_ITS ---
Impression: #Non diabetic Complains of balance problem, tremors and nervousness. # Normal Nerve Conduction Study of upper extremities. 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 # Needle/EMG exam with decreased motor unit potentials proximally and distally along with fibrillations in right Anterior Tibialis and Ext Dig Brevis muscles again compatible with right peroneal neuropathy. Nerve Conduction Studies Anti Sensory Summary Table Stim Site NR Peak (ms) P-T Amp (?V) Site1 Site2 Delta-P (ms) Dist (cm) Uday (m/s) Left Median Anti Sensory (2-3nd Digit) Wrist 3.5 33.2 Wrist 2-3nd Digit 3.5 14.0 40 Wrist 3.5 48.6 Wrist 2-3nd Digit 3.5 14.0 40 Right Median Anti Sensory (2-3nd Digit) Wrist 3.3 38.3 Wrist 2-3nd Digit 3.3 14.0 42 Wrist 3.5 32.6 Wrist 2-3nd Digit 3.3 14.0 42 Left Radial Anti Sensory (Base 1st Digit) Wrist 2.4 15.2 Wrist Base 1st Digit 2.4 0.0 Right Radial Anti Sensory (Base 1st Digit) Wrist 2.9 24.6 Wrist Base 1st Digit 2.9 0.0 Left Sup Fibular Anti Sensory (Ant Lat Mall) 14 cm 3.5 12.8 14 cm Ant Lat Mall 3.5 16.0 46 Right Sup Fibular Anti Sensory (Ant Lat Mall) NO RESPONSE 14 cm NR 14 cm Ant Lat Mall 16.0 Left Sural Anti Sensory (Lat Mall) Calf 4.1 5.6 Calf Lat Mall 4.1 16.0 39 Right Sural Anti Sensory (Lat Mall) NO RESPONSE Calf NR Calf Lat Mall 16.0 Left Ulnar Anti Sensory (5th Digit) Wrist 2.8 51.4 Wrist 5th Digit 2.8 14.0 50 Right Ulnar Anti Sensory (5th Digit) Wrist 3.2 14.8 Wrist 5th Digit 3.2 14.0 44 Motor Summary Table Stim Site NR Onset (ms) O-P Amp (mV) Site1 Site2 Delta-0 (ms) Dist (cm) Uday (m/s) Left Median Motor (Abd Poll Brev) Wrist 3.2 8.4 Elbow Wrist 6.5 33.0 51 Elbow 9.7 3.9 Right Median Motor (Abd Poll Brev) Wrist 3.9 3.5 Elbow Wrist 6.3 33.0 52 Elbow 10.2 2.4 Left Peroneal Motor (Vastus Med) Ankle 4.7 0.3 Popit Ankle 10.1 44.0 44 Popit 14.8 0.6 Right Peroneal Motor (Vastus Med) NO RESPONSE Ankle NR Popit Ankle 0.0 Popit 13.9 1.1 Left Tibial Motor (Abd Martin Brev) Ankle 4.9 5.5 Knee Ankle 9.7 45.0 46 Knee 14.6 4.0 Right Tibial Motor (Abd Martin Brev) Ankle 4.7 5.4 Knee Ankle 9.8 43.0 44 Knee 14.5 3.3 Left Ulnar Motor (Abd Dig Minimi) Wrist 2.5 5.8 A Elbow Wrist 6.3 34.0 54 A Elbow 8.8 4.0 Right Ulnar Motor (Abd Dig Minimi) Wrist 2.8 4.5 A Elbow Wrist 6.4 33.0 52 A Elbow 9.2 3.2 F Wave Studies NR F-Lat (ms) L-R F-Lat (ms) Left Median (Mrkrs) (Abd Poll Brev) 31.11 1.58 Right Median (Mrkrs) (Abd Poll Brev) 32.69 1.58 Left Peroneal (Mrkrs) (EDB) DISPERSED RESPONSE NR Right Peroneal (Mrkrs) (EDB) DISPERSED RESPONSE NR Left Tibial (Mrkrs) (Abd Hallucis) 58.23 0.52 Right Tibial (Mrkrs) (Abd Hallucis) 58.75 0.52 Left Ulnar (Mrkrs) (Abd Dig Min) 31.35 0.51 Right Ulnar (Mrkrs) (Abd Dig Min) 31.86 0.51 EMG Side Muscle Nerve Root Ins Act Fibs Amp Dur Recrt Comment Right 1stDorInt Ulnar C8-T1 Nml Nml Nml Nml +1 Right Ext Indicis Radial (Post Int) C7-8 Nml Nml Nml Nml Nml Right Ext Digitorum Radial (Post Int)
== END 2024-06-03 10:09 | disposition home or self-care (01) ==
LOC: ANHNEURO 10:09
PROVIDERS: PCP Family Medicine; Visit Provider Nurse Practitioner Family
DX: M54.10 Radiculopathy, site unspecified (principal)
CPT/HCPCS: 95886; 95913

== ENCOUNTER 2024-06-18 14:46 | Outpatient (CLI) | payer MEDICARE, MEDICAID, SELFPAY ==
--- NOTE | ~2024-06-18 | XR_ITS ---
EXAMINATION: XR cervical spine 4-5V DATE: 06/18/2024 15:24 INDICATION: Radiculopathy, cervical region. TECHNIQUE: 5 views of cervical spine including flexion and extension views were obtained. COMPARISON: Cervical spine radiographs 12/11/2019 FINDINGS: Bone alignment is normal. Vertebral body heights are normal. There is moderately decreased disc height at C4-C5 and C5-C6 and mildly decreased disc height at C6-C7. There is no abnormal motion on flexion or extension. There is multilevel uncovertebral joint osteoarthritis, severe bilaterally at C4-C5 and C5-C6. There is multilevel facet joint osteoarthritis, severe at C7-T1. There is mild ce ntral canal stenosis at C5-C6. No prevertebral soft tissue swelling. IMPRESSION: 1. Moderate cervical spondylosis, mildly worsened from 12/11/2019. Reviewed, dictated and finalized at location A.
== END 2024-06-18 14:47 ==
PROVIDERS: PCP Neurological Surgery; Visit Provider Neurological Surgery
DX: M47.22 Other spondylosis with radiculopathy, cervical region (principal)
CPT/HCPCS: 72050

== ENCOUNTER 2024-07-31 07:34 | Outpatient (CLI) | payer MEDICARE, MEDICAID, SELFPAY ==
--- NOTE | ~2024-07-31 | NM_ITS ---
EXAMINATION: NM campbell stress w perfusion DATE: 07/31/2024 11:09 INDICATION: Dyspnea on exertion TECHNIQUE: Rest images were obtained following intravenous administration of 9.3 mCi Tc99m tetrofosmi n (Myoview). The patient was infused intravenously with Lexiscan (Regadenoson). Then, 30.2 mCi Tc99m tetrofosmin (Myoview) was administered intravenously, and stress images were obtained. Data was recon structed into short axis and horizontal and vertical long axis SPECT images. Gated SPECT images were also obtained. COMPARISON: None. FINDINGS: There is no definite reversible or fixed perfusion abnormality to suggest ischemia or infar ction. There is normal left ventricular chamber size, wall motion and ejection fraction. Left ventr icular ejection fraction measures 70%. IMPRESSION: 1. Normal myocardial perfusion at rest and during stress. 2. Left ventricular ejection fraction measuring 70%. Reviewed, dictated and finalized at location B.
--- NOTE | 2024-07-31 07:36 | ECHO_ITS ---
Patient Info Name: Ernesto Solis Age: 54 years : 1970 Gender: Male Ht: 72 in Wt: 186 lbs BSA: 2.08 m2 HR: 63 bpm BP: 161 / 102 mmHg Technical Quality: Good Exam Date: 07/31/2024 7:49 AM Exam Location: Echo Lab Patient Status: Outpatient Admit Date: 07/31/2024 Staff Ordering Physician: Yusuf Conley DO Representative Government Relations: Ashlyn Loyola RDCS Attending Provider: Yusuf Conley DO Referring Physician: Jarvis BOWEN; Exam Type: CA echo doppler color flow Study Info Indications R06.09 - Other forms of dyspnea Complete two-dimensional, color flow and Doppler transthoracic echocardiogram is performed. Strain analysis performed. Summary 1. Complete two-dimensional, color flow and Doppler transthoracic echocardiogram is performed. 2. Left ventricular chamber dimension is normal. 3. Left ventricular systolic function is normal, estimated at 60-65%. 4. The left ventricular diastolic function is grade II diastolic dysfunction. 5. E/e' 8 is minimally elevated. 6. Global longitudinal strain is normal at -21.1%. 7. No pulmonary hypertension, estimated pulmonary arterial systolic pressure is 26 mmHg. Left Ventricle E/e' 8 is minimally elevated. Global longitudinal strain is normal at -21.1%. Left ventricular chamber dimension is normal. Left ventricular systolic function is normal, estimated at 60-65%. The left ventricular diastolic function is grade II diastolic dysfunction. Right Ventricle Right ventricular chamber dimension is normal. Right ventricular systolic function is normal. Left Atria Left atrial chamber dimension is normal. Right Atria Right atrial chamber dimension is normal. Aortic Valve The aortic valve is trileaflet. There is no aortic valve stenosis. There is no aortic valve regurgitation. Pulmonic Valve There is no pulmonic regurgitation. Mitral Valve There is no mitral valve stenosis. There is no mitral valve regurgitation. Tricuspid Valve There is no tricuspid valve regurgitation. No pulmonary hypertension, estimated pulmonary arterial systolic pressure is 26 mmHg. Pericardium/Pleural There is no pericardial effusion. Inferior Vena Cava Normal inferior vena cava with >50% collapse upon inspiration consistent with normal right atrial pressure, 5 mmHg. Aorta The aortic root size at the sinus of Valsalva is normal. Left Ventricular Outflow Tract Name Value Normal LVOT 2D LVOT Diameter 2.0 cm LVOT Doppler LVOT Peak Gradient 5 mmHg LVOT Mean Gradient 3 mmHg LVOT VTI 23 cm LVOT VTI/AV VTI Ratio 0.8 LVOT Stroke Volume 76 ml LVOT CO 5.0 l/min LVOT CI 2.4 l/min/m2 Pulmonic Valve Name Value Normal RVOT Doppler RVOT Peak Gradient 4 mmHg PV Doppler
--- NOTE | 2024-07-31 07:36 | EST_ITS ---
Patient Info Name: Ernesto Solis Age: 54 years : 1970 Gender: Male Ht: 72 in Wt: 186 lbs BSA: 2.08 m2 HR: 61 bpm BP: 147 / 97 mmHg Exam Date: 07/31/2024 9:09 AM Exam Location: Echo Lab Patient Status: Outpatient Admit Date: 07/31/2024 Staff Ordering Physician: Yusuf Conley DO Attending Provider: Yusuf Conley DO Exercise Technologist: Roro Pruitt [facility] Exercise Physician: Yusuf Conley DO Exam Type: CA stress campbell w NM Study Info A regadenoson stress test was performed. Summary 1. 1. Negative lexiscan stress test for ischemic ST changes by ECG criteria. 2. 2. Baseline hypertension. 3. 3. Nuclear scan to follow and will be reported separately. Please correlate with it. 4. 4. Patient informed of the above results. Protocol: Lexiscan Stress ECG Details Stage: REST Duration (min): 4 min : 24 sec HR (bpm): 64 SBP (mmHg): 147 DBP (mmHg): 97 Stage: REST Duration (min): 13 min : 8 sec HR (bpm): 61 SBP (mmHg): 147 DBP (mmHg): 97 Stage: STAGE 1 Duration (min): 0 min : 59 sec HR (bpm): 82 SBP (mmHg): 147 DBP (mmHg): 78 Stage: RECOVERY Duration (min): 1 min : 0 sec HR (bpm): 84 SBP (mmHg): 147 DBP (mmHg): 78 Stage: RECOVERY Duration (min): 2 min : 0 sec HR (bpm): 82 SBP (mmHg): 147 DBP (mmHg): 78 Stage: RECOVERY Duration (min): 3 min : 0 sec HR (bpm): 78 SBP (mmHg): 148 DBP (mmHg): 81 Stage: RECOVERY Duration (min): 3 min : 33 sec HR (bpm): 77 SBP (mmHg): 148 DBP (mmHg): 81 Rest HR: 61 bpm Peak HR: 85 bpm Rest Sys BP: 147 mmHg Peak Sys BP: 148 mmHg Max Pred HR: 165 bpm % Max Pred HR: 52 % Target HR: 140 bpm Max RPP: 12,580 bpm*mmHg Termination Reason: Completed protocol Cardiac Symptoms: Shortness of breath Total Time: 1 min : 0 sec Rest Adkins BP: 97 mmHg Peak Adkins BP: 81 mmHg Total Dose: 0.4 mg Resting ECG Sinus rhythm, anteroseptal infarct, age indeterminate. Stress ECG No ST changes. Arrhythmias None. Report Signatures
== END 2024-07-31 07:35 | disposition home or self-care (01) ==
PROVIDERS: PCP Family Medicine; Visit Provider Internal Medicine Cardiovascular Disease
DX: R06.09 Other forms of dyspnea (principal); R07.9 Chest pain, unspecified
CPT/HCPCS: 78452; 93017; 93306; A9502; J2785

== ENCOUNTER 2024-08-07 12:08 | Outpatient (CLI) | payer MEDICARE, MEDICAID, SELFPAY ==
[2024-08-07 12:54] LABS: Cholesterol 198 mg/dL (0-200); HDL Direct 98 mg/dL; Triglycerides 59 mg/dL (<150)
[2024-08-07 13:05] LABS: LDL Cholesterol Direct 82 mg/dL
== END 2024-08-07 12:09 | disposition home or self-care (01) ==
PROVIDERS: PCP Family Medicine; Visit Provider Internal Medicine Cardiovascular Disease
DX: E78.5 Hyperlipidemia, unspecified (principal)
CPT/HCPCS: 36415; 80061

== ENCOUNTER 2025-02-03 12:32 | Outpatient (CLI) | payer MEDICARE, MEDICAID, SELFPAY ==
--- NOTE | ~2025-02-03 | CT_ITS ---
EXAMINATION: CT lung screening DATE: 02/03/2025 13:00 INDICATION: Nicotine dependence TECHNIQUE: Computed tomography (CT) of the chest was performed without intravenous contrast. The dose -length product was 196.72 mGy-cm. Automated exposure control and iterative reconstruction technique were employed. COMPARISON: None FINDINGS: Heart size normal. There is atherosclerosis of the coronary arteries. No significant pleura l or pericardial effusion. There are calcified granulomas of the liver and spleen. There is emphysema . There is right upper lobe scarring without discrete nodularity. There is minimal left apical scarri ng. There is subpleural nodules measuring 4 mm or less in the apices. There are calcified granulomas in the right lower lung, mediastinum and right hilum. IMPRESSION: 1. Lung-RADS category 2: Benign appearance or behavior. Continue annual screening with noncontrast lo w-dose chest CT in 12 months. Reviewed, dictated and finalized at location A. IMPRESSION: 1. Lung-RADS category 2: Benign appearance or behavior. Continue annual screeni ng with noncontrast low-dose chest CT in 12 months.
[2025-02-03 13:21] LABS: Basophils Absolute Auto 0.1 K/mm3 (0.0-0.1); Basophils Percent Auto 1.1 % (0.2-1.2); Eosinophils Absolute Auto 0.1 K/mm3 (0-0.3); Hematocrit 45.1 % (42.0-52.0); Hemoglobin 14.7 g/dL (14.0-18.0); Immature Granulocyte Absolute 0.03 K/mm3 (0.00-0.031); Immature Granulocyte Percent A 0.5 % (0-0.5); Lymphocytes Absolute Auto 1.21 K/mm3 (0.9-3.2); Lymphocytes Percent Auto 18.4 % (18.3-44.2); Mean Corpuscular HGB Conc 32.6 g/dl (32-36); Mean Corpuscular Hemoglobin 29.1 pg (26-34); Mean Corpuscular Volume 89.1 fl (80-100); Mean Platelet Volume 10.2 fl (7.4-10.4); Monocytes Absolute Auto 0.8 K/mm3 (0.1-0.6); Monocytes Percent Auto 12.5 % (2.6-8.5); Neutrophils Absolute Auto 4.3 K/mm3 (1.3-6.7); Neutrophils Percent Auto 65.5 % (45.5-73.1); Platelet Count Result 243 k/mm3 (150-375); Red Blood Count 5.06 M/mm3 (4.6-6.20); Red Cell Distribution Width 14.6 % (11.5-14.5); White Blood Count 6.6 K/mm3 (4.5-10.0)
[2025-02-03 13:24] LABS: Hemoglobin A1C 5.4 % (<5.7)
[2025-02-03 13:31] LABS: Alanine Aminotransferase 33 U/L (6-50); Alkaline Phosphatase 66 U/L (38-126); Anion Gap 10 mmol/L (4-12); Aspartate Amino Transferase 42 U/L (17-59); Bilirubin,Total 1.2 mg/dL (0.2-1.3); Blood Urea Nitrogen 7 mg/dL (9-20); Carbon Dioxide 26 mmol/L (22-30); Chloride 102 mmol/L (98-107); Cholesterol 206 mg/dL (0-200); Estimated Glomerular Filt Rate > 60; Glucose 119 mg/dL (65-110); HDL Direct 107 mg/dL; Potassium 4.2 mmol/L (3.4-5.0); Sodium 138 mmol/L (137-145); Triglycerides 129 mg/dL (<150)
--- OUTSIDE RECORDS SUMMARY | 2025-02-03 13:36 | XMS_ITS | CONTINUITY OF CARE DOCUMENT ---
Author Name [email or web address] Address Unknown Organization [facility] Address [address] [place] [address] Phone [phone] Care Team Providers Care Cord Splicer Name Role Phone Adrianne BARBOUR, Yosi Unavailable [phone] SAEID CHAVEZ MD Unavailable [phone] SAEID CHAVEZ MD Unavailable [phone] INSURANCE PROVIDERS Payer name Policy type / Coverage type [place] [employer] [facility] [facility] Medicaid 1 [id number] [facility] MEDIC[facility] ([facility] COMPLETE PPO) Other [id number]
--- OUTSIDE RECORDS SUMMARY | 2025-02-03 13:37 | XMS_ITS | Clinical Summary ---
Author Organization [employer] [facility] Address [address] [place] [address] Care Team Providers Care Lye Machine Operator Name Role Phone Matt Gastelum MD Primary Care Provider [phone] Source Comments [facility],non-owned Affiliates and Associated Physician Practices is amultiple site organization consisting of ambulatory clinics and hospital sitesin [place], [place], [place] and [place]. This disclosure is being madepursuant to the Care Everywhere program and may not contain all information available regarding this patient. Last updated 18.[employer] [employer] [facility] [facility] Allergies No known active allergies Medications * Be aware that medications may not be up to date on this document. Alwaysverify current medications with the patient. Medication Sig Dispensed Refills Start Date End Date Status raNITIdine (ZANTAC) 150 MG tablet Take 150 mg by mouth BID. 09/12/2017 Active albuterol HFA (PROVENTIL;VENTOLIN;WV OAIR) 108 (90 Base) MCG/ACT inhaler Inhale by mouth as needed 09/23/2019 Active Nutritional Supplements (ENSURE ACTIVE PO) 237 mL Active ALPRAZolam (XANAX) 0.25 MG tablet Take 0.25 mg by mouth as needed 12/11/2019 Active amoxicillin-clavulanat e (AUGMENTIN) 875-125 MG tablet Take 875 mg by mouth 2 times daily 12/11/2019 Active cyclobenzaprine (FLEXERIL) 10 MG tablet Take 10 mg by mouth as needed 01/01/2020 Active naproxen (NAPROSYN) 500 MG tablet Take 500 mg by mouth as needed 01/06/2020 Active fluticasone propionate (FLONASE) 50 MCG/ACT nasal spray Fingal 50 sprays into each nostril 2 times daily Active predniSONE (DELTASONE) 20 MG tablet Take 20 mg by mouth 2 times daily 12/11/2019 Active lisinopril (PRINIVIL; ZESTRIL) 30 MG tablet Take 30 mg by mouth once daily 05/30/2021 Active naproxen sodium (ANAPROX DS) 550 MG tablet Take 550 mg by mouth Active ondansetron (ZOFRAN) 4 MG tablet every 6 hours Active Active Problems Problem Noted Date Diagnosed Date Dysphagia 12/09/2017 Other dysphagia 10/24/2017 Abnormal weight loss 09/12/2017 Immunizations Name Administration Dates Next Due INFLUENZA VACCINE 11/24/2019 INFLUENZA VACCINE, QUADR. (F LUZONE; FLULAVAL; FLUARIX; AFLURIA QUADRIVALENT; 6MO+), 0.5 ML (IIV4) 11/24/2019 Family History Medical History Relation Name Comments CVA Father Status: d Hypertension Father Hypertension Mother Status: Alive Hypertension Sister Status: Alive Relation Name Status Comments Father Mother Sister Social History Tobacco Use Types Packs/Day Years Used Date Smoking Tobacco: Every Day Cigarettes Smokeless Tobacco: Current Chew Alcohol Use Standard Drinks/Week Comments Yes 0 (1 standard drink = 0.6 oz pur e alcohol) Sex and Gender Information Value Date Recorded Sex Assigned at Not on file Gender Identity Not on file Sexual Orientation Not on file Last Filed Vital Signs Vital Sign Reading Time Taken Comments Blood Pressure 153/107 06/05/2021 2:18 PM CDT Pulse 82 06/05/2021 2:18 PM CDT Temperature 36.3 C (97.3 F) 06/05/2021 2:18 PM CDT Respiratory Rate 18 10/24/2017 10:06 AM 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 Oxygen Saturation 97% 06/05/2021 2:18 PM CDT Inhaled Oxygen Concentration - - Weight 61.2 kg (135 lb) 06/05/2021 2:18 PM CDT Height 182.9 cm (6') 06/05/2021 2:18 PM CDT Body Mass Index 18.31 06/05/2021 2:18 PM CDT Plan of Treatment Health Maintenance Due Date Last Done Comments STEVEN (AGES 45-75) - COL ON CA SCREENING 1970 COLON MONITORING 1970 COLONOSCOPY - COLON CA SCREENING 1969 CT COLONOGRAPHY - COLON CA SCREENING 1970 Colorectal Cancer Screening 1970 FIT - COLON CA SCREENING 1970 FLEX SIG - COLON CA SCREENING 1970 LIPID TESTING 1970 HIV SCREENING 02/14/1984 HEPATITIS C SCREENING 02/09/1987 DTAP/TDAP/TD VACCINES (1 - Tdap) 02/14/1988 HEPATITIS B VACCINE (1 of 3 - 19+ 3-dose series) 02/14/1988 PNEUMOCOCCAL VACCINE 50+ (1 of 2 - PCV) 02/14/1988 PNEUMOCOCCAL VACCINE (1 of 2 - PCV) 02/14/1988 ZOSTER VACCINE (1 of 2) 2019 COVID-19 VACCINE ( - 2023-2 5 season) 2024 INFLUENZA VACCINE (#1) 2024 0, 11/24/2019 DEPRESSION SCREENING 11/11/2024 MEDICARE AWV CALENDAR YEAR 2024 HIB VACCINE Aged Out No longer eligi ble based on patient's age to complete this topic HPV VACCINE Aged Out No longer eligi ble based on patient's age to complete this topic MENINGOCOCCAL (Group B) VACCINE SHARED DECISION-MAKING Aged Out No longer eligible based on patient's age to complete this topic MENINGOCOCCAL GROUPS A/C/Y/W VACCINE Aged Out No longer eligible b ased on patient's age to complete this topic Care Teams Lye Machine Operator Relationship Specialty Start Date End Date Matt Gastelum MD [address] [place] [address] PCP - General 01/04/21
--- OUTSIDE RECORDS SUMMARY | 2025-02-03 13:37 | XMS_ITS | Clinical Summary ---
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 Family History Medical History Relation Comments Hypertension Father Stroke Father massive Hypertension Mother Diabetes Paternal Grandmother Mental Health Sister Relation Status Comments Father (Age 66) Mother Paternal Grandmother Sister Social History Tobacco Use Types Packs/Day Years Used Date Smoking Tobacco: Every Day Cigarettes 0.5 30 Smokeless Tobacco: Never Tobacco Cessation:Ready to Q uit: Yes Alcohol Use Standard Drinks/Week Comments Yes 70 (1 standard drink = 0.6 oz pu re alcohol) 6pk per night Sex and Gender Information Value Date Recorded Sex Assigned at Not on file Legal Sex Male 8:06 PM CDT Gender Identity Not on file Sexual Orientation Not on file Last Filed Vital Signs Vital Sign Reading Time Taken Comments Blood Pressure 142/94 06/26/2019 8:00 AM CDT Pulse 58 06/26/2019 8:00 AM CDT Temperature - - Respiratory Rate 18 06/26/2019 8:00 AM CDT Oxygen Saturation 100% 06/26/2019 8:00 AM CDT Inhaled Oxygen Concentration - - Weight 65.1 kg (143 lb 9.6 oz) 06/26/2019 8:00 A M CDT Height 182.9 cm (6') 06/26/2019 8:00 AM CDT Body Mass Index 19.48 06/26/2019 8:00 AM CDT Plan of Treatment Health Maintenance Due Date Last Done Comments Colorectal Cancer Screening Colonoscopy (10 Years) 1970 Annual Physical 02/14/1972 Pneumococcal Vaccine: Pediat rics (0 to 5 Years) and At-Risk Patients (6 to 64 Years) (1 of 2 - PCV) 1975 PHQ-2 (Physician [place]) 1981 Hepatitis C 1987 DTaP, Tdap and Td Vaccines ( 1 - Tdap) 02/14/1988 Hepatitis B Vaccines (1 of 3 - 19+ 3-dose series) 02/14/1988 Zoster Vaccines (1 of 2) 2019 COVID-19 Vaccine ( - 2023-2 5 season) 2024 Influenza Adult (#1) 2024 PHQ-2 (Physician [place]) 11/11/2024 Meningococcal B Vaccine Aged Out No l onger eligible based on patient's age to complete this topic Meningococcal Vaccine Aged Out No jemima cholo eligible based on patient's age to complete this topic RSV Immunizations Under 20 Months Aged Out No longer eligible based on patient's age to complete this topic Insurance Care Teams Refrigeration Insulator Relationship Specialty Start Date End Date Matt Gastelum MD [address] [place] [address] PCP - General FAMILY PRACTICE 04/16/19 Ramon Roldan MD [address] [place] [address] Surgeon NEUROLOGICAL SURGERY 06/26/19 Sunil Livingston MD [address] [place] [address] GASTROENTEROLOGY 06/26/19
--- OUTSIDE RECORDS SUMMARY | 2025-02-03 13:37 | XMS_ITS | Clinical Summary ---
Author Organization [facility] Address [address] [place] [address] Phone Care Team Providers Care Collections Associate Name Role Phone Matt Gastelum MD Primary Care Provider Allergies No known active allergies Medications lisinopriL (PRINIVIL) 20 mg tablet Take 20 mg by mouth daily. Active naproxen sodium (ANAPROX DS) 550 mg tablet Take 550 mg by mouth 2 times daily with meals. Active cyclobenzaprine (FLEXERIL) 10 mg tablet Take 10 mg by mouth 3 times daily as needed. Active Family History Medical History Relation Name Comments Hypertension Father Hypertension Maternal Grandmother Hypertension Mother Hypertension Sister Relation Name Status Comments Father Maternal Grandmother Mother Sister Social History Tobacco Use Types Packs/Day Years Used Date Smoking Tobacco: Every Day Alcohol Use Standard Drinks/Week Comments Yes 0 (1 standard drink = 0.6 oz pur e alcohol) Sex and Gender Information Value Date Recorded Sex Assigned at Not on file Legal Sex Male 3:14 PM CDT Gender Identity Not on file Sexual Orientation Not on file Plan of Treatment Health Maintenance Due Date Last Done Comments DTAP/TDAP/TD VACCINES (1 - Tdap) 02/14/1988 HEPATITIS B VACCINES (1 of 3 - 19+ 3-dose series) 02/14/1988 COLORECTAL SCREENING 2014 Colorectal Cancer Screening 2014 FIT-DNA Q 3 years 2014 FIT/FOBT Q 1 year 2014 Flex Sig/CT Colonography Q 5 years 2014 ZOSTER VACCINE (1 of 2) 2019 INFLUENZA VACCINE (#1) 2024 PNEUMOCOCCAL VACCINE 0-49 YEARS Aged Out No longer eligible based on patient's age to complete this topic Care Teams Collections Associate Relationship Specialty Start Date End Date Matt Gastelum MD [address] [place] [address] PCP - General Family Practice 07/12/20
[2025-02-03 13:41] LABS: LDL Cholesterol Direct 67 mg/dL
[2025-02-03 14:01] LABS: Prostate Specific Antigen 0.9 ng/mL (< OR = 4.0); Total Triiodothyronine (T3) 1.26 NG/ML (0.97-1.69)
[2025-02-03 14:08] LABS: Free T4 Free Thyroxine 1.09 ng/dL (0.78-2.19)
[2025-02-03 14:39] LABS: Hepatitis C Virus Antibody Negative (Negative)
== END 2025-02-03 12:33 | disposition home or self-care (01) ==
PROVIDERS: PCP Family Medicine; Visit Provider Registered Nurse
DX: J44.9 Chronic obstructive pulmonary disease, unspecified (principal); Z12.2 Encounter for screening for malignant neoplasm of respiratory organs; Z87.891 Personal history of nicotine dependence; E78.5 Hyperlipidemia, unspecified; I10 Essential (primary) hypertension; R53.83 Other fatigue; R73.01 Impaired fasting glucose; Z11.59 Encounter for screening for other viral diseases; Z12.5 Encounter for screening for malignant neoplasm of prostate
CPT/HCPCS: 36415; 71271; 80053; 80061; 83036; 84153; 84439; 84443; 84480; 85025; 86803

== ENCOUNTER 2025-05-14 23:22 | Emergency (ER) | payer MEDICARE, MEDICAID, SELFPAY ==
--- OUTSIDE RECORDS SUMMARY | 2025-05-14 23:25 | XMS_ITS | Data Portability ---
Author Organization [facility] Address [address] [place] [address] Care Team Providers Care Technology Professional Name Role Phone CHRIS EARL Primary Care Provider [phone] Assessment No assessment recorded. Plan of Treatment Reminders Order Date Submit Date Provider Last Modified By Organization Details Last Modified Time Details Appointments None recorded. Lab CMP, serum or plasma 2017 018 [facility], [address] [facility] [address], [place], [address], 8 06:19:40 Referral gastroente rologist referral - Please call patient to schedule appt. Venkat 2017 018 florentino Liu MD, [address] [facility] [address], [place], [address], 8 08:39:13 neurologis t referral - Please call patient to schedule appt. Thank you 2017 018 florentino Fermin MD PHD, [address], [address], [place], [address], 8 11:26:40 sleep medicine referral - Please call patient to schedule appt. Thank you [email or web address] [facility], [address] [facility], [address], [place], [address], 8 17:28:02 Procedures None recorded. Surgeries None recorded. Imaging US, chuck shen 2017 018 [facility] [[email or web address] ([facility] Scheduling), [address] [place], [address], 8 17:10:23 MRI, lumbar spine, w/o contrast 2017 018 [facility], [address], [place], [address], 8 12:22:47 MRI, cervical spine, w/o contrast 2017 018 [facility], [address], [place], [address], 8 12:22:47 [place], modified barium swallow study 2017 [facility] (One Call Scheduling), [address] [place], [address], 8 13:48:10 Medication Orders Augmentin 500 mg-125 mg tablet 2017 018 [facility] [address] In [facility], [address] [place], [address], 8 11:26:14 fluticason e propionate 50 mcg/actuat ion nasal spray,susp ension 2017 018 INTERFACE Not available 8 16:18:39 Ensure Active Protein-Mu scle oral liquid 2017 018 INTERFACE Not available 8 16:16:39 Patient TargetsNo targets recorded. Patient Instructions Encounter Date Encounter Id Patient Instructions Last Modified By Organization Details Last Modified Time 11/15/2017 [id number] Quitting Tobacco : Care Instructions [place] Not available 11/15/2017 16:16:24 chronic obstructive pulmonary disease (COPD): care instructions [place] Not available 11/15/2017 16:16:24 learning about copd and how to prevent lung infections [place] Not available 11/15/2017 16:16:24 snoring: care instructions [place] Not available 11/15/2017 16:16:24 07/10/2018 [id number] allergies: care instructions [place] Not available 07/10/2018 16:18:03 managing your allergies: care instructions [place] Not available 07/10/2018 16:18:03 07/23/2018 [id number] influenza (flu) vaccine: care instructions [place] Not available 07/23/2018 13:05:34 09/29/2018 [id number] cervical spinal stenosis: care instructions [place] Not available 09/29/2018 17:04:27 10/16/2018 [id number] Quitting Tobacco : Care Instructions [place] Not available 10/16/2018 16:31:02 Acute Sinusitis: Care Instructions [place] Not available 10/16/2018 16:31:01 chronic obstructive pulmonary disease (COPD): care instructions [place] Not available 10/16/2018 16:31:02 learning about copd and how to prevent lung infections [place] Not available 10/16/2018 16:31:02 Reason for Referral Please call patient to [facility] appt. Thank you Referring Physician: Chris Earl, Internal Medicine, Encounter Date: 11/15/2017 Neurologist Referral for Lum bar radiculopathy Please call patient to schedule appt. Thank you Referring Physician: Chris Earl Internal Medicine, Encounter Date: 07/10/2018 [place] Referral for Painless rectal bleeding Please call patient to schedule appt. Thankyou Referring Physician: Chris Earl Internal Medicine, Encounter Date: 10/16/2018 Results Created Date Observation Date Name Description Value Unit Range Abnormal Flag Note LastModifiedBy Organization Detail LastModifiedTime 12/11/19 18 12/12/2017 CMP, serum or plasm a glucose, serum 78 mg/dL 65-99 Not Available [facility] [address] [place], [address], 12/12/2017 06:19:40 12/11/19 18 12/12/2017 CMP, serum or plasm a BUN 8 mg/dL 6-24 Not Available [facility] [address] [place], [address], 12/12/2017 06:19:40 12/11/19 18 12/12/2017 CMP, serum or plasm a creatinine, serum 0.82 mg/dL 0.76-1 .27 Not Available [facility] [address] [place], [address], 12/12/2017 06:19:40 12/11/19 18 12/12/2017 CMP, serum or plasm a eGFR if nonafricn AM 105 mL/mi n/1.7 3 >59 Not Available [facility] [address] [place], [address], 12/12/2017 06:19:40 12/11/19 18 12/12/2017 CMP, serum or plasm a eGFR if africn AM 121 mL/mi n/1.7 3 >59 Not Available [facility] [address] [place], [address], 12/12/2017 06:19:40 12/11/19 18 12/12/2017 CMP, serum or plasm a BUN/creatini ne ratio 10 9-20 Not Available [facility] [address] [place], [address], 12/12/2017 06:19:40 12/11/19 18 12/12/2017 CMP, serum or plasm a sodium, serum 144 mmol/ L 134-14 4 Not Available [facility] [address] [place], [address], 12/12/2017 06:19:40 12/11/19 18 12/12/2017 CMP, serum or plasm a potassium, serum 4.7 mmol/ L 3.5-5. 2 Not Available [facility] [address] [place] [address], [address], 12/12/2017 06:19:40 12/11/19 18 12/12/2017 CMP, serum or plasm a chloride, serum 100 mmol/ L 96-106 Not Available [facility] [address] [facility] [place], [address], 12/12/2017 06:19:40 12/11/19 18 12/12/2017 CMP, serum or plasm a carbon dioxide, total 27 mmol/ L 18-29 Not Available [facility] [address] [facility] [place], [address], 12/12/2017 06:19:40 12/11/19 18 12/12/2017 CMP, serum or plasm a calcium, serum 9.9 mg/dL 8.7-10 .2 Not Available [facility] [address] [facility] [place], [address], 12/12/2017 06:19:40 12/11/19 18 12/12/2017 CMP, serum or plasm a protein, total, serum 7.1 g/dL 6.0-8. 5 Not Available [facility] [address] [place], [address], 12/12/2017 06:19:40 12/11/1912/12/2017 CMP, serum or plasm a albumin, serum 4.5 g/dL 3.5-5. 5 Not Available [facility] [address] [place], [address], 12/12/2017 06:19:40 12/11/1912/12/2017 CMP, serum or plasm a globulin, total 2.6 g/dL 1.5-4. 5 Not Available [facility] [address] [facility] [place], [address], 12/12/2017 06:19:40 12/11/1912/12/2017 CMP, serum or plasm a A/G ratio 1.7 1.2-2. 2 Not Available [facility] [address] [place], [address], 12/12/2017 06:19:40 12/11/19 18 12/12/2017 CMP, serum or plasm a bilirubin, total 0.4 mg/dL 0.0-1. 2 Not Available [facility] [address] [facility], [place], [address], 12/12/2017 06:19:40 12/11/19 18 12/12/2017 CMP, serum or plasm a alkaline phosphatase, S 73 IU/L 39-117 Not Available [facility] [address] [facility], [place], [address], 12/12/2017 06:19:40 12/11/19 18 12/12/2017 CMP, serum or plasm a AST (SGOT) 19 IU/L 0-40 Not Available [facility] [address] [facility], [place], [address], 12/12/2017 06:19:40 12/11/19 18 12/12/2017 CMP, serum or plasm a ALT (SGPT) 13 IU/L 0-44 Not Available [facility] [address] [facility], [place], [address], 12/12/2017 06:19:40 12/18/19 18 08/28/2017 XR, chest , 2 view No observ ation record ed. [place] Not Available 2017 16:56:18 12/18/19 18 08/28/2017 CT, neck, soft tissu e, w/ contr ast No observ ation record ed. [place] Not Available 2017 16:56:18 07/16/20 18 07/16/2018 [place], modif ied ivan esquivel ow study No observ ation record ed. [facility] (Imaging) [address] [place], [address], 07/16/2018 18:12:50 08/20/20 18 08/18/2017 CT, abdom en + pelvi s, w/o contr ast No observ ation record ed. [place] Not Available 2017 16:48:37 10/01/20 18 09/30/2018 MRI, lumba r spine , w/o contr ast No observ ation record ed. [email or web address] [facility] [address], [place], [address], 10/10/2018 09:38:44 10/01/20 18 09/30/2018 MRI, cervi jenn spine , w/o contr ast No observ ation record ed. [email or web address] [facility] [address], [place], [address], 10/10/2018 09:38:45 01/02/20 19 01/02/2019 CT, maxil loaleidac ial, w/o contr ast No observ ation record ed. [address] (Imaging) [address] [place], [address], 01/02/2019 17:29:34 02/04/20 19 02/03/2019 XR, cervi jenn spine No observ ation record ed. [address], [place], [address], 02/03/2019 17:21:30 11/17/19 21 11/16/2020 XR, ribs, unila teral No observ ation record ed. [facility] [address] [place], [address], 11/17/2020 12:02:34 07/21/20 21 07/20/2021 XR, chest No observ ation record ed. [facility] ([facility] Call Scheduling) [address] [place], [address], 07/21/2021 12:07:59 Result Notes None recorded. Problems Name Problem SNOMED Code Status Onset Date Resolution Date Notes Provider Name and Address Organization Details Recorded Time Acute sinusitis 53874535 Active Danika Ramirez RN null, [place] - [place] 4 14:35:11 Chronic obstructive pulmonary disease 49056919 Active Danika Ramirez RN null, [place] - [place] 4 14:35:11 Tobacco dependence syndrome 02304369 Active Danika Ramirez RN [place], [place] 4 14:35:11 Problem Notes None recorded. Medical Equipment None Reported. Allergies No known drug allergies Medications Name Sig Start Date Stop Date Status Note LastModified by Organization Details LastModified Time Prescript ion - New 09/03 completed Not Available Not Available Not Available amoxicill in 500 mg capsule 07/10 completed Not Available Not Available Not Available clindamyc in HCl 300 mg capsule 09/03 completed Not Available Not Available Not Available ibuprofen 800 mg tablet 05/20 completed Not Available Not Available Not Available clarithro mycin 500 mg tablet 07/10 completed Not Available Not Available Not Available penicilli n V potassium 500 mg tablet 09/03 completed Not Available Not Available Not Available Nexium 40 mg capsule,d elayed release Take 1 capsule every day by oral route before meals for 30 days. 07/10 completed Not Available Not Available Not Available THSC Penicilli n VK 500 mg tablet Take 1 tablet 4 times a day by oral route as directed . 09/03 completed Not Available Not Available Not Available Fleet Enema 19 gram-7 gram/118 mL 07/10 completed Not Available Not Available Not Available lorazepam 0.5 mg tablet Take 1 tablet(s ) twice a day by oral route as directed . 10/16 completed Not Available Not Available Not Available DOK 100 mg capsule 07/10 completed Not Available Not Available Not Available cephalexi n 500 mg capsule 09/03 completed Not Available Not Available Not Available ranitidin e 150 mg tablet Take 1 tablet twice a day by oral route as directed for 30 days. 12/12 completed Changed to Nexium Not Available Not Available Not Available hydrochlo rothiazid e 12.5 mg capsule 09/03 completed Not Available Not Available Not Available ranitidin e 150 mg capsule 12/12 completed Nexium ordered. Not Available Not Available Not Available fluticaso ne propionat e 50 mcg/actua tion nasal spray,ale[place] pension [place] 1 spray every day by intranas al route as needed for 30 days. active Not Available Not Available No t Available Augmentin 500 mg-125 mg tablet Take 1 tablet every 12 hours by oral route after meals for 7 days. 10/28 completed Not Available Not Available Not Available metoclopr amide 10 mg tablet Take 1 tablet twice a day by oral route as directed for 30 days. 09/03 completed Not Available Not Available Not Available Cymbalta 30 mg capsule,d elayed release Take 1 capsule every day by oral route as directed for 30 days. 11/15 completed Not Available Not Available Not Available Nexium Packet 20 mg granules delayed release for susp Take 1 packet every day by oral route before meals for 30 days. 09/03 completed Not Available Not Available Not Available omeprazol e 20 mg tablet,de layed release 07/10 completed Not Available Not Available Not Available Chantix Starting Month Box 0.5 mg (11)-1 mg (42) tablets in dose pack Take 1 tablet every day by oral route as directed for 30 days. 05/20 completed Not Available Not Available Not Available Ensure Active Protein-M uscle oral liquid Take 237 mL 5 times a day by oral route as directed for 30 days. 2017 active Not Available Not Available Not Avai lable Vitals Date Recorded Body height Body temperature Oxygen saturation Oxygen saturation in Arterial blood by Pulse oximetry Heart rate Systolic And Diastolic Provider Name and Address Organization Details Last Updated DateTime 8 183.52 cm 97.6 [degF] 100 % 100 % 73 /min 116/76 mm[Hg] Ermias Briceño MA [facility] 8 15:27:44 Date Recorded Body height Body mass index (BMI) Body weight Body temperature Oxygen saturation Oxygen saturation in Arterial blood by Pulse oximetry Heart rate Systolic And Diastolic Provider Name and Address Organization Details Last Updated DateTime 8 183.52 cm 20.2 kg/m2 37603.8 6 g 97.8 [degF] 100 % 100 % 62 /min 110/74 mm[Hg] Ermias Briceño MA [facility] 8 15:35:43 Date Recorded Body height Body mass index (BMI) Body weight Body temperature Oxygen saturation Oxygen saturation in Arterial blood by Pulse oximetry Heart rate Systolic And Diastolic Provider Name and Address Organization Details Last Updated DateTime 8 183.52 cm 20.1 kg/m2 34714.2 6 g 98.1 [degF] 98 % 98 % 61 /min 110/70 mm[Hg] Ermias Briceño MA [facility] 8 12:38:52 Date Recorded Body height Body mass index (BMI) Body weight Body temperature Oxygen saturation Oxygen saturation in Arterial blood by Pulse oximetry Heart rate Systolic And Diastolic Provider Name and Address Organization Details Last Updated DateTime 8 183.52 cm 19.9 kg/m2 76848.6 7 g 97.8 [degF] 98 % 98 % 70 /min 118/74 mm[Hg] Ermias Briceño MA [facility] 8 16:22:53 Date Recorded Body height Body mass index (BMI) Body weight Body temperature Oxygen saturation Oxygen saturation in Arterial blood by Pulse oximetry Heart rate Systolic And Diastolic Provider Name and Address Organization Details Last Updated DateTime 8 183.52 cm 20.1 kg/m2 06421.7 g 98.3 [degF] 100 % 100 % 72 /min 124/84 mm[Hg] Ermias Briceño MA [facility] 8 15:52:28 Social History None recorded. Functional Status None recorded. Mental Status None recorded. Family History Nothing Reported. Medical History Condition Response Coronary Artery Disease N Other N Atrial Fibrillation N High Blood Pressure N Depression N COPD N Blood Clots N Anxiety Disorder N Muscle, Joint, or Bone Problems N Acid Reflux (GERD) N Cancer N Stroke N High Cholesterol N Liver Disease N Headaches N Kidney or Bladder Problems N Thyroid Problems N GI Problems N Skin Problems N Anemia N Heart Attack ([place]) N Diabetes N Seizures/Epilepsy N Asthma N Allergies N Hepatitis N Osteoporosis N Heart Failure N Immunizations Vaccine Type Date Status Note Provider Nam e and Address Organization Details Recorded Time COVID-19, mRNA, LNP-S, PF, 30 mcg/0.3 mL dose completed Not Available [facility] 07/26/2021 06:01:46 Influenza, split virus, quadrivalent, preservative 7 completed Not Available [facility] 11/28/2019 02:34:47 Influenza, split virus, quadrivalent, PF 8 completed Not Available [facility] 11/28/2019 02:43:42 Past Encounters Encounter ID Performer Location Encounter Start Date Encounter Closed Date Diagnosis/Indication Diagnosis SNOMED-CT Code Diagnosis ICD10 Code Diagnosis Note [id number] MD Sofia Henao (Adult Med) [address] [place] [address] [phone] [id number] 10/26/2014 13:20:31 10/26/2014 17:43:42 Acute sinusitis 90312555 Chronic ob structive pulmonary disease 08873540 Tobacco de pendence syndrome 54786868 Adult [facility] examination 412873408 [id number] MD Sofia Henao (Adult Med) [address] [place] [address] [id number] 01/08/2017 15:09:50 01/08/2017 16:24:41 Chronic obstructive pulmonary disease 23761952 J44.9 Tobacco de pendence syndrome 18398230 F17.432 [id number] MD Sofia Henao (Adult Med) [address] [place] [address] [id number] 02/05/2017 14:52:56 02/05/2017 18:07:45 Acute stress disorder 20588322 F43.0 BP re-checked later with larger cuff in sitting position on left arm the reading is 150/80 mmhg. Tobacco de pendence syndrome 33355859 F17.467 [id number] MD Sofia Henao (Adult Med) [address] [place] [address] [phone] 05/20/2017 12:18:57 05/20/2017 13:40:27 Dysphagia 59277362 R13.10 Feeling some thing in the throat which makes him hard to swallowing solid food but no visible lesion in inspection in this office, no neck llymphaden opathy. [id number] MD Sofia Henao (Adult Med) [address] [place] [address] [id number] 07/29/2017 12:02:47 07/29/2017 13:29:04 Dysphagia 38316568 R13.10 Feeling some thing in the throat which makes him hard to swallowing solid food but no visible lesion in inspection in this office, no neck llymphaden opathy. Chronic ob structive pulmonary disease 89694442 J44.9 Tobacco de pendence syndrome 46835765 F17.290 Used to smoke 1-2 pk/day since age of 14. [id number] MD Sofia Henao (Adult Med) [address] [place] [address] [id number] 09/03/2017 13:15:34 09/04/2017 13:26:30 Chronic neck pain 4131710232 107 M54.2 Esophageal dysphagia 408 53898 R13.19 weight loss, needs nutritonal supplement . [id number] MD Sofia Henao (Adult Med) [address] [place] [address] [id number] 09/30/2017 14:42:30 09/30/2017 17:20:47 Abnormal weight loss 908727521 R63.4 Chronic ob structive pulmonary disease 09035516 J44.9 Nicotine dependence 5629 4008 F17.200 History of thyroid disorder 168466406 Z86.39 Administra tion of influenza vaccine 74940861 Z23 He tolerated shot well. Chronic anxiety 58849595 9 F41.9 Chronic neck pain 022487 3162 107 M54.2 Will go to U. Acid reflux 653322048 K2 1.9 [id number] MD Sofia Henao (Adult Med) [address] [place] [address] [id number] 11/15/2017 15:01:43 11/15/2017 16:34:23 Pharyngeal dryness 178507405 J39.2 Has been evaluated by ENT. Unexplaine d weight loss 826980002 R63.4 Nicotine dependence 5629 4008 F17.200 Chronic ob structive pulmonary disease 20149336 J44.9 Snoring symptoms 7291013 00 R06.83 Weakness present 8491702 07 M62.81 [id number] MD Sofia Henao (Adult Med) [address] [place] [address] [id number] 07/10/2018 14:52:45 07/10/2018 16:57:33 Pharyngeal dysphagia 5857884151 9105 R13.13 Chronic neck pain 470498 7179 107 M54.2 Will go to U. Lumbar radiculopathy 128 349264 M54.16 From previous injury. Esophageal dysphagia 408 14806 R13.19 weight loss, needs nutritonal supplement . Allergic rhinitis 930723 04 J30.9 He is going to contact previous ENT Dr. alford again regarding to his nose issue. [id number] [facility] [address] [place] [address] [id number] 07/23/2018 12:13:45 07/24/2018 10:31:30 Administration of influenza vaccine 34956144 Z23 He tolerated shot well. Esophageal dysphagia 408 67050 R13.19 weight loss, needs nutritonal supplement . Abnormal modified barium swallowing . He has gained weight, MBS reported narrow at C5-6 level, copy of report provided to patient , will fax to his GI specialist at [facility] as his request today, 07-23-2019 . fax [phone] Isabell Livingston. [id number] Chris Earl MD [facility] (Adult Med) [address] [place] [address] [id number] 09/29/2018 15:58:39 09/30/2018 11:37:13 Spinal stenosis in cervical region 09229613 M48.02 REQUIRE OPEN mri Lumbar radiculopathy 128 M54.16 From previous injury.REQ UIRE OPEN MRI. [id number] [facility] [address] [place] [address] [id number] 10/16/2018 15:36:07 10/17/2018 09:58:00 Painless rectal bleeding 064891935 K62.5 Cervical radiculopathy 69770333 M54.12 He has disc film and copies of report, awaiting the appointmen t of neurosurge ry referral. Lumbosacra l radiculopathy 6542696 M54.17 He has disc film and copy of report, awaiting for the appointmen t of neurosurge ry referral. Acute sinusitis 03083118 J01.90 Chronic ob structive pulmonary disease 60892022 J44.9 Nicotine dependence 5629 4008 F17.200 Gallstone 872235029 K80. 20 Health Concerns Section Related Observation LastModified by Organization Detai ls LastModified Time None Recorded Concern Status LastModified by Organization Details LastModified Time None Recorded Advance Directives Directive None Recorded Payers Insurance Date Sequence Insurance Name Policy Number Policy Waggoner Covered Member ID Waggoner Member ID Guarantor Name 01/08/2017 1 [facility] (MEDICAID HMO) Ernesto Will [id number] Ernesto Solis 11/25/2018 1 [facility] - DOS PRIOR TO 2021 (MEDICAID REPLACEMENT - HMO) Ernesto Solis [id number] Ernesto Solis 05/22/2017 2 [place] Ernesto Will [id number] Ernesto Solis Notes Date Note Type Note Provider Name and Address Organization Details Recorded Time 11/15/2017 text/html He did not fruit picker the lorazepam, on ensure, smokes cigarettes. He had been evaluated by ENT and GI with EGD scope, chronic neck and back and whole body pain, will see a neurologist in the near future. Weight still not coming up. Chris Earl MD Attn: Accounting[address] [place], [address], [facility] 11/15/2017 16:32:00 07/10/2018 text/html 1. History of pharyngeal dysphagia, had dilatation done in [facility], certain food just can not be consumed. like steak /hamburger due to swalloing issue, on ensure supplement. Has not had modified barium swallowing test yet.2. Chronic back and neck pain from previous injury, not a candidate for operation , wants neurology referral at this side [facility]. 3. Nicotine dependence, has no intention of quitting. NKDA. Chris Earl MD Attn: Accounting[address] [place], [address], [place] [facility] 07/10/2018 16:21:22 09/29/2018 text/html Cervical spine stenosis, and lower back radiculopathy. Asking for the MRI of cervical spine and lumbAR SPINE. Chris Earl MD Attn: Accounting[address] [place], [address], [facility] 09/29/2018 17:09:23 10/16/2018 text/html Spinal stenosis on C-spine and lumbar spine stenosis with radiculopathy, will see a neurosurgeon, also has sinus congestion, a smoker, off and on pain less rectal bleeding. NKDA. Chris Earl MD Attn: Accounting[address] [place], [address], [place] [facility] 10/16/2018 16:31:46
--- OUTSIDE RECORDS SUMMARY | 2025-05-14 23:26 | XMS_ITS | Clinical Summary ---
Author Organization [facility] Address [address] [place] [address] Care Team Providers Care Change Director Name Role Phone Matt Gastelum MD Primary Care Provider + [phone] Ramon Roldan MD Unavailable Unavailabl e Sunil [...] Colonoscopy (10 Years) 1969 Annual Physical 02/14/1972 Hepatitis C 1987 DTaP, Tdap and Td Vaccines ( 1 - Tdap) 02/14/1988 Hepatitis B Vaccines (1 of 3 - 19+ 3-dose series) 02/14/1988 Pneumococcal Vaccine: 50+ Ye ars (1 of 2 - PCV) 02/14/1988 Zoster Vaccines (1 of 2) 2019 COVID-19 Vaccine ( - 2023-2 5 season) 2024 PHQ-2 (Physician [place]) 11/11/2024 Meningococcal B Vaccine Aged Out No l onger eligible based on patient's age to complete this topic Meningococcal Vaccine Aged Out No jemima cholo eligible based on patient's age to complete this topic RSV Immunizations Under 20 Months Aged Out No longer eligible based on patient's age to complete this topic Insurance Care Teams Change Director Relationship Specialty Start Date End Date Matt Gastelum MD [address] [place] [id number] PCP - General FAMILY PRACTICE 04/16/19 Ramon Roldan MD [address] [place] [address] Surgeon NEUROLOGICAL SURGERY 06/26/19 Sunil Livingston MD [address] [place] [address] GASTROENTEROLOGY 06/26/19
[2025-05-14 23:29] VITALS: BP 157/117; PULSE 95; RESP 17; TEMP 36.8; O2SAT 94
[2025-05-14 23:39] VITALS: BP 157/117; PULSE 97; RESP 17; TEMP 36.8; O2SAT 94
--- NOTE | 2025-05-14 23:55 | ED.GIBLEED ---
HPI - GI Bleed General Chief complaint: GI Bleed Stated complaint: my butt is bleeding Time Seen by Provider: 05/14/25 23:35 Source: patient Mode of arrival: ambulatory Limitations: no limitations History of Present Illness HPI Narrative: This is a 55-year-old male that presents to the emergency department for possible rectal bleeding. Reports he is noting stains on his underwear. Ongoing over the last week. He does not note any bleeding when he actually has a bowel movement. He reports the stains are brown. Does report problems with constipation. Denies abdominal pain, vomiting. Related Data Home Medications ?Medication ?Instructions ?Recorded ?Confirmed ?Last Taken ?Type albuterol sulfate 90 mcg/actuation 1 puff inhalation Q4H PRN 04/28/20 08/07/24 Unknown History aerosol inhaler Shortness Of Breath Or Wheezing lisinopril 10 mg tablet 40 mg PO DAILY 04/28/20 08/07/24 09/05/23 History amlodipine 5 mg tablet 10 mg PO DAILY 10/16/22 08/07/24 09/05/23 History cyclobenzaprine 10 mg tablet 10 mg PO BID 09/05/23 08/07/24 Unknown History simvastatin 20 mg tablet 20 mg PO DAILY 06/18/24 08/07/24 Unknown History Allergies Allergy/AdvReac Type Severity Reaction Status Date / Time No Known Drug Allergies Allergy Mild Unknown Verified 05/14/25 23:33 Review of Systems Review of Systems: All systems reviewed & are unremarkable except as noted in HPI and below PMFSH Past Medical History Medical History Anxiety Asthma Chronic GERD Fullness after eating Hypertension DEION (obstructive sleep apnea) Smoker Surgical History Surgical History No history of previous surgery Family History Family History Father Alcoholism Hypertension Cerebrovascular accident Heart disease Mother Hypertension Depression Heart disease Anxiety Sibling Depression Hypertension Anxiety Social History Social History Smoking packs per day: 1.5 Smoking cigarettes per day: 30.0 Years smoked: 39 Smoking pack-years: 58.50 Smoking status: Current every day smoker Tobacco type: cigarettes Alcohol intake: current Drinks per week: 40 Alcohol use details: beer Substance use type: unknown Do You Feel Safe in your Home?: Yes Lack of Transportation: No Lack of Food: Sometimes True Current Housing: I Have Housing Concerned About Future Housing: No Difficulty Paying Gas/Electric Bills: No Difficulty Paying for Meds: No Currently Unemployed: Decline to Answer Education: Grade School Difficulty w/ Childcare or Family Care: Decline to Answer Living arrangements: alone Gender identity (if verbalized by the patient): Male Spiritual care concerns: No Exam Narrative: GENERAL: Well-appearing, well-nourished, and in no acute distress. HEAD: Normocephalic, atraumatic. EYES: EOMI. CHEST: Clear to auscultation. No respiratory distress. No wheezes rales or rhonchi HEART: Regular rate and rhythm. No murmur heard. Normal peripheral pulses. ABDOMEN: Soft, nontender, nondistended, normal active bowel sounds. EXTREMITIES: Normal range of motion. No edema. SKIN: Warm, dry, no rash. NEURO: No focal deficits. Alert and oriented x3. PSYCH: Normal mood and affect RECTAL: Hemorrhoid present, nonthrombosed. No active bleeding, Hemoccult negative Course Vital Signs Vital signs: Vital Signs Temperature 98.3 F 05/14/25 23:29 Pulse Rate 95 05/14/25 23:29 Respiratory Rate 17 05/14/25 23:29 Blood Pressure 157/117 H 05/14/25 23:29 Pulse Oximetry 94 05/14/25 23:29 Oxygen Delivery Room Air 05/14/25 23:29 Temperature 98.3 F 05/14/25 23:39 Pulse Rate 97 05/14/25 23:39 Respiratory Rate 17 05/14/25 23:39 Blood Pressure 157/117 H 05/14/25 23:39 Pulse Oximetry 94 05/14/25 23:39 Oxygen Delivery Room Air 05/14/25 23:29 MDM - GI Bleed MDM Narrative Medical decision making narrative: Patient presents to the ER for possible rectal bleeding. Reports history of constipation. Patient is noted to have an external hemorrhoid, nonthrombosed. No active bleeding, Hemoccult negative. His vitals are stable. Hemoglobin is 13.7. Metabolic panel with evidence of mild dehydration, patient is tolerating oral intake without any abdominal pain. He was instructed on further care of constipation and hemorrhoids. Will be given follow-up with GI. He was given warnings to return to the ER Differential Diagnosis Differential diagnosis: Likely hemorrhoids and anal fissure Lab Data Attestation: I reviewed the patient's lab results. 05/15/25 00:31 05/15/25 00:31 Labs: Lab Results 05/15/25 Range/Units 00:31 WBC 5.4 (4.5-10.0) K/mm3 RBC 4.62 (4.6-6.20) M/mm3 Hgb 13.7 L (14.0-18.0) g/dL Hct 40.9 L (42.0-52.0) % MCV 88.5 (80-100) fl MCH 29.7 (26-34) pg MCHC 33.5 (32-36) g/dl RDW 15.4 H (11.5-14.5) % Plt Count 210 (150-375) k/mm3 MPV 9.7 (7.4-10.4) fl Immature Gran % (Auto) 0.7 H (0-0.5) % Neut % (Auto) 44.7 L (45.5-73.1) % Lymph % (Auto) 35.1 (18.3-44.2) % Childress % (Auto) 13.6 H (2.6-8.5) % Eos % (Auto) 4.6 H (0-4.4) % Baso % (Auto) 1.3 H (0.2-1.2) % Lymph # (Auto) 1.89 (0.9-3.2) K/mm3 Childress # (Auto) 0.7 H (0.1-0.6) K/mm3 Eos # (Auto) 0.3 (0-0.3) K/mm3 Baso # (Auto) 0.1 (0.0-0.1) K/mm3 Abs Immat Gran (auto) 0.04 H (0.00-0.031) K/mm3 Absolute Neuts (auto) 2.4 (1.3-6.7) K/mm3 Absolute Nucleated RBC 0.000 (0.0-0.012) K/mm3 Nucleated RBC % 0.0 (0.0-0.2) % PT 12.2 (11.1-14.7) Seconds INR 0.9 APTT 26.5 (22.3-36.8) Seconds Sodium 140 (137-145) mmol/L Potassium 4.2 (3.4-5.0) mmol/L Chloride 106 (98-107) mmol/L Carbon Dioxide 21 L (22-30) mmol/L Anion Gap 13 H (4-12) mmol/L BUN 8 L (9-20) mg/dL Creatinine 0.87 (0.7-1.3) mg/dL Estim Creat Clear Calc 91 ml/min Estimated GFR > 60 (59 - ) Glucose 100 (65-110) mg/dL Calcium 8.7 (8.4-10.2) mg/dL Total Bilirubin 0.3 (0.2-1.3) mg/dL AST 43 (17-59) U/L ALT 26 (6-50) U/L Alkaline Phosphatase 50 (38-126) U/L Total Protein 7.1 (6.3-8.2) g/dL Albumin 4.5 (3.5-5.1) g/dL Critical Care Time Critical Care Time Critical Care Time: No Discharge Plan Discharge Clinical Impression: Hemorrhoid Qualifiers: Hemorrhoid type: unspecified Qualified Code(s): K64.9 - Unspecified hemorrhoids Constipation Qualifiers: Constipation type: unspecified constipation type Qualified Code(s): K59.00 - Constipation, unspecified Patient Disposition: Home Condition: Stable Instructions: Constipation (ED), Hemorrhoids (ED) Additional Instructions: Return to the ER if you experience fever, abdominal pain with nausea and vomiting, you are unable to keep down liquids or solids, or any other symptoms that are concerning to you Remain well hydrated. Increase fruits and vegetables in your diet. Colace daily. Miralax as needed Follow up with your primary care doctor and gastroenterology Patient Language: Mozamb[place] Prescriptions: New hydrocortisone [Procto-Med HC] 2.5 % cream with perineal applicator 1 applic RECTAL DAILY 7 Days Qty: 30 0RF No Action lisinopril 10 mg tablet 40 mg PO DAILY albuterol sulfate 90 mcg/actuation HFA aerosol inhaler 1 puff INHALATION Q4H PRN (Reason: Shortness Of Breath Or Wheezing) simvastatin 20 mg tablet 20 mg PO DAILY cyclobenzaprine 10 mg tablet 10 mg PO BID amlodipine 5 mg tablet 10 mg PO DAILY omeprazole 20 mg capsule,delayed release(DR/EC) 20 mg PO .daily Qty: 90 1RF Follow-up/Referrals: Matt Gastelum MD [Primary Care Provider] - Tommy Redman MD [Physician] -
--- OUTSIDE RECORDS SUMMARY | 2025-05-14 23:57 | XMS_ITS | Clinical Summary ---
Author Organization [facility] Address [address] [place] [id number] Care Team Providers Care Accounts Payable Administrator Name Role Phone Matt Gastelum MD Primary Care Provider + [phone] Ramon Roldan MD Unavailable Unavailabl e Sunil [...] - 2023-2 5 season) 2024 PHQ-2 (Physician [place]) 11/11/2024 Meningococcal B Vaccine Aged Out No l onger eligible based on patient's age to complete this topic Meningococcal Vaccine Aged Out No jemima cholo eligible based on patient's age to complete this topic RSV Immunizations Under 20 Months Aged Out No longer eligible based on patient's age to complete this topic Insurance Care Teams Accounts Payable Administrator Relationship Specialty Start Date End Date Matt Gastelum MD [address] [place] [id number] PCP - General FAMILY PRACTICE 04/16/19 Ramon Roldan MD [address] [place] [address] Surgeon NEUROLOGICAL SURGERY 06/26/19 Sunil Livingston MD [address] [place] [address] GASTROENTEROLOGY 06/26/19
--- OUTSIDE RECORDS SUMMARY | 2025-05-14 23:57 | XMS_ITS | Clinical Summary ---
Author Organization [facility] Address [address] [facility] [place] [address] Phone Care Team Providers Care Weir Fisherman Name Role Phone Matt Gastelum MD Primary Care Provider [phone] Allergies No known active allergies Medications lisinopriL [...] (1 of 3 - 19+ 3-dose series) 03/1988 COLORECTAL SCREENING 2014 Colorectal Cancer Screening 2014 FIT-DNA Q 3 years 2014 FIT/FOBT Q 1 year 2014 Flex Sig/CT Colonography Q 5 years 2014 ZOSTER VACCINE (1 of 2) 2019 INFLUENZA VACCINE (#1) 2025 Care Teams Weir Fisherman Relationship Specialty Start Date End Date Matt Gastelum MD [address] [place] [address] PCP - General Family Practice 07/12/20
[2025-05-15 00:42] LABS: Hematocrit 40.9 % (42.0-52.0); Hemoglobin 13.7 g/dL (14.0-18.0); Immature Granulocyte Percent A 0.7 % (0-0.5); Lymphocytes Absolute Auto 1.89 K/mm3 (0.9-3.2); Mean Corpuscular HGB Conc 33.5 g/dl (32-36); Mean Corpuscular Hemoglobin 29.7 pg (26-34); Mean Corpuscular Volume 88.5 fl (80-100); Nucleated Red Blood Cells Absolute Auto 0.000 K/mm3 (0.0-0.012); Nucleated Red Blood Cells Perc 0.0 % (0.0-0.2); Platelet Count Result 210 k/mm3 (150-375); Red Blood Count 4.62 M/mm3 (4.6-6.20); White Blood Count 5.4 K/mm3 (4.5-10.0)
[2025-05-15 00:52] LABS: Alanine Aminotransferase 26 U/L (6-50); Albumin Level 4.5 g/dL (3.5-5.1); Alkaline Phosphatase 50 U/L (38-126); Anion Gap 13 mmol/L (4-12); Aspartate Amino Transferase 43 U/L (17-59); Bilirubin,Total 0.3 mg/dL (0.2-1.3); Blood Urea Nitrogen 8 mg/dL (9-20); Calcium 8.7 mg/dL (8.4-10.2); Carbon Dioxide 21 mmol/L (22-30); Chloride 106 mmol/L (98-107); Estimated CRCL calculation 91 ml/min; Estimated Glomerular Filt Rate > 60; Glucose 100 mg/dL (65-110); Potassium 4.2 mmol/L (3.4-5.0); Sodium 140 mmol/L (137-145); Total Protein 7.1 g/dL (6.3-8.2)
[2025-05-15 00:53] LABS: INR 0.9; Partial Thromboplastin Time 26.5 Seconds (22.3-36.8); Prothrombin Time 12.2 Seconds (11.1-14.7)
[2025-05-15 01:10] VITALS: BP 117/72; PULSE 87; RESP 17; O2SAT 97
== END 2025-05-15 01:13 | disposition home or self-care (01) ==
PROVIDERS: Emergency Provider Physician Assistant; PCP Family Medicine
DX: K64.9 Unspecified hemorrhoids (principal); K59.00 Constipation, unspecified; J45.909 Unspecified asthma, uncomplicated; I10 Essential (primary) hypertension; G47.33 Obstructive sleep apnea (adult) (pediatric); K21.9 Gastro-esophageal reflux disease without esophagitis; F41.9 Anxiety disorder, unspecified; F17.210 Nicotine dependence, cigarettes, uncomplicated
CPT/HCPCS: 36415; 80053; 85025; 85610; 85730; 86850; 86900; 86901; 99283

== ENCOUNTER 2025-05-17 02:05 | Emergency (ER) | payer MEDICARE, MEDICAID, SELFPAY ==
[2025-05-17 02:11] VITALS: BP 158/101; PULSE 92; RESP 18; TEMP 36.9; O2SAT 99
[2025-05-17] MEDS: TETRACAINE HCL 0.5% OPHTH SOLN 4 ML BTL 1 DROP EACH EYE (02:32)
[2025-05-17] MEDS: FLUORESCEIN SOD 1 MG/STRIP EACH EYE (02:32)
--- OUTSIDE RECORDS SUMMARY | 2025-05-17 02:33 | XMS_ITS | Data Portability ---
Author Organization [facility] Address [address] [place] [address] Care Team Providers Care Tv Technician Name Role Phone CHRIS EARL Primary Care Provider Assessment No assessment recorded. Plan of Treatment Reminders Order Date Submit Date Provider Last Modified By Organization Details Last Modified Time Details Appointments None recorded. Lab CMP, serum or plasma 2017 018 [facility], [address] [facility], [address], [place], [address], 8 06:19:40 Referral gastroente rologist referral - Please call patient to schedule appt. Venkat 2017 018 florentino Liu MD, [address] [facility] [address], [place], [address], 8 08:39:13 neurologis t referral - Please call patient to schedule appt. Thank you 2017 018 florentino Fermin MD PHD, [address], [address], [place], [address], 8 11:26:40 sleep medicine referral - Please call patient to schedule appt. Thank you [email or web address] [facility], [address] [facility], [address], [place], [address], 8 17:28:02 Procedures None recorded. Surgeries None recorded. Imaging US, chuck shen 2017 018 [facility] ([facility]), [address] [place], [address], 8 17:10:23 MRI, lumbar spine, w/o contrast 2017 018 [facility], [address], [place], [address], 8 12:22:47 MRI, cervical spine, w/o contrast 2017 018 [facility], [address], [place], [address], 8 12:22:47 FL, modified barium swallow study 2017 [facility] ([facility]), [address] [place], [address], 8 13:48:10 Medication Orders Augmentin 500 mg-125 mg tablet 2017 018 [facility] [address] [facility], [address] [place], [address], 8 11:26:14 fluticason e propionate 50 mcg/actuat ion nasal spray,susp ension 2017 018 INTERFACE Not available 8 16:18:39 Ensure Active Protein-Mu scle oral liquid 2017 018 INTERFACE Not available 8 16:16:39 Patient TargetsNo targets recorded. Patient Instructions Encounter Date Encounter Id Patient Instructions Last Modified By Organization Details Last Modified Time 11/15/2017 [id number] Quitting Tobacco : Care Instructions [facility] Not available 11/15/2017 16:16:24 chronic obstructive pulmonary disease (COPD): care instructions [facility] Not available 11/15/2017 16:16:24 learning about copd and how to prevent lung infections [facility] Not available 11/15/2017 16:16:24 snoring: care instructions [facility] Not available 11/15/2017 16:16:24 07/10/2018 [id number] allergies: care instructions [facility] Not available 07/10/2018 16:18:03 managing your allergies: care instructions [facility] Not available 07/10/2018 16:18:03 07/23/2018 [id number] influenza (flu) vaccine: care instructions [facility] Not available 07/23/2018 13:05:34 09/29/2018 [id number] cervical spinal stenosis: care instructions [facility] Not available 09/29/2018 17:04:27 10/16/2018 [id number] Quitting Tobacco : Care Instructions [facility] Not available 10/16/2018 16:31:02 Acute Sinusitis: Care Instructions [facility] Not available 10/16/2018 16:31:01 chronic obstructive pulmonary disease (COPD): care instructions [facility] Not available 10/16/2018 16:31:02 learning about copd and how to prevent lung infections [facility] Not available 10/16/2018 16:31:02 Reason for Referral Please call patient to [facility] appt. Thank you Referring Physician: Chris Earl, Internal Medicine, Encounter Date: 11/15/2017 Neurologist Referral for Lum bar radiculopathy Please call patient to schedule appt. Thank you Referring Physician: Chris Earl Internal Medicine, Encounter Date: 07/10/2018 Mattress Stripper Referral for Painless rectal bleeding Please call patient to schedule appt. Thankyou Referring Physician: Chris Earl Internal Medicine, Encounter Date: 10/16/2018 Results Created Date Observation Date Name Description Value Unit Range Abnormal Flag Note LastModifiedBy Organization Detail LastModifiedTime 12/11/19 18 12/12/2017 CMP, serum or plasm a glucose, serum 78 mg/dL 65-99 Not Available [facility] ([facility]) [address] [place], [address], 12/12/2017 06:19:40 12/11/19 18 12/12/2017 CMP, serum or plasm a BUN 8 mg/dL 6-24 Not Available [facility] ([facility]) [address] [place], [address], 12/12/2017 06:19:40 12/11/19 18 12/12/2017 CMP, serum or plasm a creatinine, serum 0.82 mg/dL 0.76-1 .27 Not Available [facility] ([facility]) [address] [place], [address], 12/12/2017 06:19:40 12/11/19 18 12/12/2017 CMP, serum or plasm a eGFR if nonafricn AM 105 mL/mi n/1.7 3 >59 Not Available [facility] ([facility]) [address] [place], [address], 12/12/2017 06:19:40 12/11/19 18 12/12/2017 CMP, serum or plasm a eGFR if africn AM 121 mL/mi n/1.7 3 >59 Not Available [facility] ([facility]) [address] [place], [address], 12/12/2017 06:19:40 12/11/19 18 12/12/2017 CMP, serum or plasm a BUN/creatini ne ratio 10 9-20 Not Available [facility] ([facility]) [address] [place], [address], 12/12/2017 06:19:40 12/11/19 18 12/12/2017 CMP, serum or plasm a sodium, serum 144 mmol/ L 134-14 4 Not Available [facility] ([facility]) [address] [place], [address], 12/12/2017 06:19:40 12/11/19 18 12/12/2017 CMP, serum or plasm a potassium, serum 4.7 mmol/ L 3.5-5. 2 Not Available [facility] ([facility]) [address] [place] [address], [address], 12/12/2017 06:19:40 12/11/19 18 12/12/2017 CMP, serum or plasm a chloride, serum 100 mmol/ L 96-106 Not Available [facility] ([facility] [address] [facility] [place], [address], 12/12/2017 06:19:40 12/11/19 18 12/12/2017 CMP, serum or plasm a carbon dioxide, total 27 mmol/ L 18-29 Not Available [facility] ([facility]) [address] [facility] [place], [address], 12/12/2017 06:19:40 12/11/19 18 12/12/2017 CMP, serum or plasm a calcium, serum 9.9 mg/dL 8.7-10 .2 Not Available [facility] ([facility]) [address] [facility] [place], [address], 12/12/2017 06:19:40 12/11/19 18 12/12/2017 CMP, serum or plasm a protein, total, serum 7.1 g/dL 6.0-8. 5 Not Available [facility] ([facility]) [address] [facility] [place], [address], 12/12/2017 06:19:40 12/11/1912/12/2017 CMP, serum or plasm a albumin, serum 4.5 g/dL 3.5-5. 5 Not Available [facility] ([facility]) [address] [facility] [place], [address], 12/12/2017 06:19:40 12/11/1912/12/2017 CMP, serum or plasm a globulin, total 2.6 g/dL 1.5-4. 5 Not Available [facility] ([facility]) [address] [facility] [place], [address], 12/12/2017 06:19:40 12/11/1912/12/2017 CMP, serum or plasm a A/G ratio 1.7 1.2-2. 2 Not Available [facility] ([facility]) [address] [facility] [place], [address], 12/12/2017 06:19:40 12/11/19 18 12/12/2017 CMP, serum or plasm a bilirubin, total 0.4 mg/dL 0.0-1. 2 Not Available [facility] ([facility]) [address] [facility], [place], [address], 12/12/2017 06:19:40 12/11/19 18 12/12/2017 CMP, serum or plasm a alkaline phosphatase, S 73 IU/L 39-117 Not Available [facility] ([facility]) [address] [facility], [place], [address], 12/12/2017 06:19:40 12/11/19 18 12/12/2017 CMP, serum or plasm a AST (SGOT) 19 IU/L 0-40 Not Available [facility] ([facility]) [address] [facility], [place], [address], 12/12/2017 06:19:40 12/11/19 18 12/12/2017 CMP, serum or plasm a ALT (SGPT) 13 IU/L 0-44 Not Available [facility] ([facility]) [address] [facility], [place], [address], 12/12/2017 06:19:40 12/18/19 18 08/28/2017 XR, chest , 2 view No observ ation record ed. [facility] Not Available 2017 16:56:18 12/18/19 18 08/28/2017 CT, neck, soft tissu e, w/ contr ast No observ ation record ed. [facility] Not Available 2017 16:56:18 07/16/20 18 07/16/2018 FL, modif ied ivan esquivel ow study No observ ation record ed. [facility] (Imaging) [address] [place], [address], 07/16/2018 18:12:50 08/20/20 18 08/18/2017 CT, abdom en + pelvi s, w/o contr ast No observ ation record ed. [facility] Not Available 2017 16:48:37 10/01/20 18 09/30/2018 MRI, lumba r spine , w/o contr ast No observ ation record ed. [email or web address] [facility] [address], [place], [address], 10/10/2018 09:38:44 10/01/20 18 09/30/2018 MRI, cervi jenn spine , w/o contr ast No observ ation record ed. [email or web address] [facility] [address], [place], [address], 10/10/2018 09:38:45 01/02/20 19 01/02/2019 CT, maxil loaleidac ial, w/o contr ast No observ ation record ed. [email or web address] (Imaging) [address] [place], [address], 01/02/2019 17:29:34 02/04/20 19 02/03/2019 XR, cervi jenn spine No observ ation record ed. [address], [place], [address], 02/03/2019 17:21:30 11/17/19 21 11/16/2020 XR, ribs, unila teral No observ ation record ed. [facility] [address] [place], [address], 11/17/2020 12:02:34 07/21/20 21 07/20/2021 XR, chest No observ ation record ed. [facility] ([facility]) [address] [place], [address], 07/21/2021 12:07:59 Result Notes None recorded. Problems Name Problem SNOMED Code Status Onset Date Resolution Date Notes Provider Name and Address Organization Details Recorded Time Acute sinusitis 44411997 Active Danika Ramirez RN null, [place] - [place] 4 14:35:11 Chronic obstructive pulmonary disease 89758230 Active Danika Ramirez RN null, [place] - [facility] 4 14:35:11 Tobacco dependence syndrome 39124378 Active Danika Ramirez RN null, [place] - [...] e 50 mcg/actua tion nasal spray,[employer] pension [place] 1 spray every day by intranas al [...] 73 /min 116/76 mm[Hg] Ermias Briceño MA [facility] SI 8 15:27:44 Date Recorded Body height Body mass index (BMI) Body weight Body temperature Oxygen saturation Oxygen saturation in Arterial blood by Pulse oximetry Heart rate Systolic And Diastolic Provider Name and Address Organization Details Last Updated DateTime 8 183.52 cm 20.2 kg/m2 65886.8 6 g 97.8 [degF] 100 % 100 % 62 /min 110/74 mm[Hg] Ermias Briceño MA [facility] 8 15:35:43 Date Recorded Body height Body mass index (BMI) Body weight Body temperature Oxygen saturation Oxygen saturation in Arterial blood by Pulse oximetry Heart rate Systolic And Diastolic Provider Name and Address Organization Details Last Updated DateTime 8 183.52 cm 20.1 kg/m2 79847.2 6 g 98.1 [degF] 98 % 98 % 61 /min 110/70 mm[Hg] Ermias Briceño MA [facility] 8 12:38:52 Date Recorded Body height Body mass index (BMI) Body weight Body temperature Oxygen saturation Oxygen saturation in Arterial blood by Pulse oximetry Heart rate Systolic And Diastolic Provider Name and Address Organization Details Last Updated DateTime 8 183.52 cm 19.9 kg/m2 47488.6 7 g 97.8 [degF] 98 % 98 % 70 /min 118/74 mm[Hg] Ermias Briceño MA [facility] 8 16:22:53 Date Recorded Body height Body mass index (BMI) Body weight Body temperature Oxygen saturation Oxygen saturation in Arterial blood by Pulse oximetry Heart rate Systolic And Diastolic Provider Name and Address Organization Details Last Updated DateTime 8 183.52 cm 20.1 kg/m2 26148.7 g 98.3 [degF] 100 % 100 % 72 /min 124/84 mm[Hg] Ermias Briceño MA [facility] 8 15:52:28 Social History None recorded. Functional Status None recorded. Mental Status None recorded. Family History Nothing Reported. Medical History Condition Response Coronary Artery Disease N Depression N COPD N Blood Clots N Anxiety Disorder N Acid Reflux (GERD) N Stroke N Skin Problems N Asthma N Liver Disease N Thyroid Problems N GI Problems N Anemia N Heart Attack (CA) N Diabetes N Heart Failure N Other N Atrial Fibrillation N High Blood Pressure N Muscle, Joint, or Bone Problems N Cancer N Headaches N Kidney or Bladder Problems N Allergies N Hepatitis N High Cholesterol N Seizures/Epilepsy N Osteoporosis N Immunizations Vaccine Type Date Status Note Provider Nam e and Address Organization Details Recorded Time COVID-19, mRNA, LNP-S, PF, 30 mcg/0.3 mL dose completed Not Available [facility] 07/26/2021 06:01:46 Influenza, split virus, quadrivalent, preservative 7 completed Not Available [facility] 11/28/2019 02:34:47 Influenza, split virus, quadrivalent, PF 8 completed Not Available [facility] 11/28/2019 02:43:42 Past Encounters Encounter ID Performer Location Encounter Start Date Encounter Closed Date Diagnosis/Indication Diagnosis SNOMED-CT Code Diagnosis ICD10 Code Diagnosis Note [id number] MD Sofia Henao (Adult Med) [address] [place] [address] [id number] 10/26/2014 13:20:31 10/26/2014 17:43:42 Acute sinusitis 20250367 Chronic ob structive pulmonary disease 45278028 Tobacco de pendence syndrome 43850711 Adult [facility] th examination [id number] MD Sofia Henao (Adult Med) [address] [place] [address] [id number] 01/08/2017 15:09:50 01/08/2017 16:24:41 Chronic obstructive pulmonary disease 62335318 J44.9 Tobacco de pendence syndrome 28975821 F17.683 [id number] MD Sofia Henao (Adult Med) [address] [place] [address] [id number] 02/05/2017 14:52:56 02/05/2017 18:07:45 Acute stress disorder 74542659 F43.0 BP re-checked later with larger cuff in sitting position on left arm the reading is 150/80 mmhg. Tobacco de pendence syndrome 59763031 F17.531 [id number] MD Sofia Henao (Adult Med) [address] [place] [address] [id number] 0 05/20/2017 12:18:57 05/20/2017 13:40:27 Dysphagia 82140192 R13.10 Feeling some thing in the throat which makes him hard to swallowing solid food but no visible lesion in inspection in this office, no neck llymphaden opathy. [id number] MD Sofia Henao (Adult Med) [address] [place] [address] [id number] 0 07/29/2017 12:02:47 07/29/2017 13:29:04 Dysphagia 60109097 R13.10 Feeling some thing in the throat which makes him hard to swallowing solid food but no visible lesion in inspection in this office, no neck llymphaden opathy. Chronic ob structive pulmonary disease 06896378 J44.9 Tobacco de pendence syndrome 25423526 F17.290 Used to smoke 1-2 pk/day since age of 14. [id number] MD Sofia Henao (Adult Med) [address] [place] [address] [id number] 09/03/2017 13:15:34 09/04/2017 13:26:30 Chronic neck pain 3278134793 107 M54.2 Esophageal dysphagia 408 40900 R13.19 weight loss, needs nutritonal supplement . [id number] MD Sofia Henao (Adult Med) [address] [place] [address] [id number] 0 09/30/2017 14:42:30 09/30/2017 17:20:47 Abnormal weight loss 241163069 R63.4 Chronic ob structive pulmonary disease 43428265 J44.9 Nicotine dependence 5629 4008 F17.200 History of thyroid disorder 771416356 Z86.39 Administra tion of influenza vaccine 87722126 Z23 He tolerated shot well. Chronic anxiety 97180951 9 F41.9 Chronic neck pain 836391 2301 107 M54.2 Will go to U. Acid reflux 358226413 K2 1.9 [id number] MD Sofia Henao (Adult Med) [address] [place] [address] [id number] 0 11/15/2017 15:01:43 11/15/2017 16:34:23 Pharyngeal dryness 897183489 J39.2 Has been evaluated by ENT. Unexplaine d weight loss 217661867 R63.4 Nicotine dependence 5629 4008 F17.200 Chronic ob structive pulmonary disease 52103796 J44.9 Snoring symptoms 7637629 00 R06.83 Weakness present 9651030 07 M62.81 [id number] MD Sofia Henao (Adult Med) [address] [place] [address] [id number] 07/10/2018 14:52:45 07/10/2018 16:57:33 Pharyngeal dysphagia 6552457814 9105 R13.13 Chronic neck pain 934216 1364 107 M54.2 Will go to U. Lumbar radiculopathy 128 712406 M54.16 From previous injury. Esophageal dysphagia 408 71024 R13.19 weight loss, needs nutritonal supplement . Allergic rhinitis 249454 04 J30.9 He is going to contact previous ENT Dr. alford again regarding to his nose issue. [id number] [facility] [address] [place] [address] [id number] 0 07/23/2018 12:13:45 07/24/2018 10:31:30 Administration of influenza vaccine 80726326 Z23 He tolerated shot well. Esophageal dysphagia 408 42512 R13.19 weight loss, needs nutritonal supplement . Abnormal modified barium swallowing . He has gained weight, MBS reported narrow at C5-6 level, copy of report provided to patient , will fax to his GI specialist at [facility] as his request today, 07-23-2019 . fax [phone] Isabell Livingston. [id number] Chris Earl [facility] [address] [place] [address] [id number] 09/29/2018 15:58:39 09/30/2018 11:37:13 Spinal stenosis in cervical region 40712350 M48.02 REQUIRE OPEN mri Lumbar radiculopathy 128 M54.16 From previous injury.REQ UIRE OPEN MRI. [id number] MD [facility] [address] [place] [address] [id number] 10/16/2018 15:36:07 10/17/2018 09:58:00 Painless rectal bleeding 048517140 K62.5 Cervical radiculopathy 56786781 M54.12 He has disc film and copies of report, awaiting the appointmen t of neurosurge ry referral. Lumbosacra l radiculopathy 2552597 M54.17 He has disc film and copy of report, awaiting for the appointmen t of neurosurge ry referral. Acute sinusitis 77049877 J01.90 Chronic ob structive pulmonary disease 41483066 J44.9 Nicotine dependence 5629 4008 F17.200 Gallstone 591627296 K80. 20 Health Concerns Section Related Observation LastModified by Organization Detai ls LastModified Time None Recorded Concern Status LastModified by Organization Details LastModified Time None Recorded Advance Directives Directive None Recorded Payers Insurance Date Sequence Insurance Name Policy Number Policy Waggoner Covered Member ID Waggoner Member ID Guarantor Name 01/08/2017 1 [facility] (MEDICAID HMO) Ernesto Will [id number] Ernesto Solis 11/25/2018 1 [facility] - DOS PRIOR TO 2021 (MEDICAID REPLACEMENT - HMO) Ernesto Solis [id number] Ernesto Solis 05/22/2017 2 [place] [employer] [place] [employer] Ernesto Will [id number] Ernesto Solis Notes Date Note Type Note Provider Name and Address Organization Details Recorded Time 11/15/2017 text/html 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 He had been evaluated by ENT and GI with EGD scope, chronic neck and back and whole body pain, will see a neurologist in the near future. Weight still not coming up. Chris Earl MD Attn: [address]ing[address] [place], [address], [facility] - SI 11/15/2017 16:32:00 07/10/2018 text/html 1. History of pharyngeal dysphagia, had dilatation done in [facility], certain food just can not be consumed. like steak /hamburger due to swalloing issue, on ensure supplement. Has not had modified barium swallowing test yet.2. Chronic back and neck pain from previous injury, not a candidate for operation , wants neurology referral at this side [facility]. 3. Nicotine dependence, has no intention of quitting. NKDA. Chris Earl MD Attn: [address]ing[address] [place], [address], [place] - [facility] 07/10/2018 16:21:22 09/29/2018 text/html Cervical spine stenosis, and lower back radiculopathy. Asking for the MRI of cervical spine and lumbAR SPINE. Chris Earl MD Attn: Accounting[address] [place], [address], [facility] - [facility] 09/29/2018 17:09:23 10/16/2018 text/html Spinal stenosis on C-spine and lumbar spine stenosis with radiculopathy, will see a neurosurgeon, also has sinus congestion, a smoker, off and on pain less rectal bleeding. NKDA. Chris Earl MD Attn: Accounting[address] [place], [address], [place] [facility] 10/16/2018 16:31:46
--- OUTSIDE RECORDS SUMMARY | 2025-05-17 02:33 | XMS_ITS | Clinical Summary ---
Author Organization [facility] Address [address] [place] [address] Phone Care Team Providers Care Certified Anesthesiologist Assistant Name Role Phone Matt Gastelum MD Primary Care Provider [phone] Allergies No known active allergies Medications lisinopriL [...] 2019 INFLUENZA VACCINE (#1) 2025 Care Teams Certified Anesthesiologist Assistant Relationship Specialty Start Date End Date Matt Gastelum MD [address] [place] [address] PCP - General Family Practice 07/12/20
[2025-05-17] MEDS: TETANUS,DIPHTHERIA,AC PERTUSSIS ADULT (0.5 ML) BOOSTRIX IM (02:40)
[2025-05-17] MEDS: ERYTHROMYCIN OPHTH OINTMENT 1 GM TUBE 1 APPLIC RIGHT EYE (02:42)
--- NOTE | 2025-05-17 02:43 | ED.SKABFB ---
HPI - Skin/Abscess/Foreign Bdy General Chief complaint: Skin/Abscess/Foreign Body Stated complaint: Cat scratch to face Time Seen by Provider: 05/17/25 02:17 History of Present Illness HPI narrative: Patient had his cat sitting on his chest and he yelled at the cat to get off; the cat then scratched him across his arm and face. Related Data Home Medications ?Medication ?Instructions ?Recorded ?Confirmed ?Last Taken ?Type albuterol sulfate 90 mcg/actuation 1 puff inhalation Q4H PRN 04/28/20 08/07/24 Unknown History aerosol inhaler Shortness Of Breath Or Wheezing lisinopril 10 mg tablet 40 mg PO DAILY 04/28/20 08/07/24 09/05/23 History amlodipine 5 mg tablet 10 mg PO DAILY 10/16/22 08/07/24 09/05/23 History cyclobenzaprine 10 mg tablet 10 mg PO BID 09/05/23 08/07/24 Unknown History simvastatin 20 mg tablet 20 mg PO DAILY 06/18/24 08/07/24 Unknown History Allergies Allergy/AdvReac Type Severity Reaction Status Date / Time No Known Drug Allergies Allergy Mild Unknown Verified 05/17/25 02:32 Review of Systems Review of Systems: All systems reviewed & are unremarkable except as noted in HPI and below PMFSH Past Medical History Medical History Anxiety Asthma Chronic GERD Fullness after eating Hypertension DEION (obstructive sleep apnea) Smoker Surgical History Surgical History No history of previous surgery Family History Family History Father Alcoholism Hypertension Cerebrovascular accident Heart disease Mother Hypertension Depression Heart disease Anxiety Sibling Depression Hypertension Anxiety Social History Social History Smoking packs per day: 1.5 Smoking cigarettes per day: 30.0 Years smoked: 39 Smoking pack-years: 58.50 Smoking status: Current every day smoker Tobacco type: cigarettes Alcohol intake: current Drinks per week: 40 Alcohol use details: beer Substance use type: unknown Do You Feel Safe in your Home?: Yes Lack of Transportation: No Lack of Food: Sometimes True Current Housing: I Have Housing Concerned About Future Housing: No Difficulty Paying Gas/Electric Bills: No Difficulty Paying for Meds: No Currently Unemployed: Decline to Answer Education: Grade School Difficulty w/ Childcare or Family Care: Decline to Answer Living arrangements: alone Gender identity (if verbalized by the patient): Male Spiritual care concerns: No Exam Narrative: EXAMINATION OF ORGAN SYSTEMS/BODY AREAS: Constitutional: Vital signs per nursing GENERAL:[No acute distress, non-toxic appearing.] HEAD: Normal with no signs of head trauma. EYES: EOMI, tiny corneal abrasion right eye on fluorescein stain ENT: Hearing grossly intact LUNGS: Nonlabored breathing. HEART: [Regular rate and rhythm] ABD: [Soft], [nontender to palpation] EXT: Normal range of motion SKIN: Scratches and abrasions left arm, right eyebrow, under right eye NEURO: [Alert and oriented x 3. No gross focal sensory or strength deficits.] PSYCH: Normal affect Course Vital Signs Vital signs: Vital Signs Temperature 98.5 F 05/17/25 02:11 Pulse Rate 92 05/17/25 02:11 Respiratory Rate 18 05/17/25 02:11 Blood Pressure 158/101 H 05/17/25 02:11 Pulse Oximetry 99 05/17/25 02:11 Oxygen Delivery Room Air 05/17/25 02:11 Temperature 98.5 F 05/17/25 02:11 Pulse Rate 92 05/17/25 02:11 Respiratory Rate 18 05/17/25 02:11 Blood Pressure 158/101 H 05/17/25 02:11 Pulse Oximetry 99 05/17/25 02:11 Oxygen Delivery Room Air 05/17/25 02:11 MDM - Skin/Abscess/Foreign Bdy MDM Narrative Medical decision making narrative: The patient presents here after his cat scratched him, he does have multiple very shallow abrasions/scratches on his arm and face, thankfully none of the scratches appeared deep, he initially was having trouble opening the eye due to pain, was able to open after tetracaine and on fluorescein exam he does have what appears to be tiny abrasion. I will cover him with ophthalmic antibiotics, he is not contact lens wearer, his cuts here are cleaned and tetanus is updated, I have given him follow-up information for Ophthalmology with strict return precautions. Patient agreeable to the plan. Discharge Plan Discharge Clinical Impression: Cat scratch of face Patient Disposition: Home Condition: Stable Instructions: Corneal Abrasion (ED), Abrasion (ED) Additional Instructions: Please follow up with your doctor; use medication as prescribed, follow-up with the differential specialist, you can always return for any further issues especially if you experience more pain or vision changes. Patient Language: Citizen Of [place] Prescriptions: New erythromycin 5 mg/gram (0.5 %) ointment 0.5 inch EACH EYE QID Qty: 3.5 0RF No Action lisinopril 10 mg tablet 40 mg PO DAILY albuterol sulfate 90 mcg/actuation HFA aerosol inhaler 1 puff INHALATION Q4H PRN (Reason: Shortness Of Breath Or Wheezing) simvastatin 20 mg tablet 20 mg PO DAILY hydrocortisone [Procto-Med HC] 2.5 % cream with perineal applicator 1 applic RECTAL DAILY 7 Days Qty: 30 0RF cyclobenzaprine 10 mg tablet 10 mg PO BID amlodipine 5 mg tablet 10 mg PO DAILY omeprazole 20 mg capsule,delayed release(DR/EC) 20 mg PO .daily Qty: 90 1RF Follow-up/Referrals: [facility] - [place] [Outside] - 1 Day Matt Gastelum MD [Primary Care Provider] -
== END 2025-05-17 02:49 | disposition home or self-care (01) ==
PROVIDERS: Emergency Provider Emergency Medicine; PCP Family Medicine
DX: S00.81XA Abrasion of other part of head, initial encounter (principal); W55.03XA Scratched by cat, initial encounter; F17.210 Nicotine dependence, cigarettes, uncomplicated; Z23 Encounter for immunization
CPT/HCPCS: 90471; 90715; 99283; A9270

== ENCOUNTER 2025-06-02 08:09 | Emergency (ER) | payer MEDICARE, MEDICAID, SELFPAY ==
--- NOTE | ~2025-06-02 | XR_ITS ---
CHEST RADIOGRAPH, PA AND LATERAL CLINICAL HISTORY: CP . COMPARISON: 04/23/2024 TECHNIQUE: PA and lateral views of the chest. FINDINGS The cardiomediastinal silhouette is unremarkable. The lungs are clear. IMPRESSION: No focal infiltrate or effusion. Reviewed, dictated and finalized at location A.
[2025-06-02 08:14] VITALS: BP 160/104; PULSE 74; RESP 19; TEMP 37.1; O2SAT 97
--- NOTE | 2025-06-02 08:19 | ECG_ITS ---
Test Date: 2025-06-02 08:22:08 Measurements Intervals Aldie Rate: 79 P: 60 MA: 170 QRS: -64 QRSD: 97 T: 59 QT: 374 QTc: 429 Interpretive Statements SINUS RHYTHM POSSIBLE LEFT ATRIAL ENLARGEMENT [-0.1mV P-WAVE IN V1/V2] POSSIBLE RIGHT VENTRICULAR CONDUCTION DELAY [RSR (QR) IN V1/V2] LEFT ANTERIOR FASCICULAR BLOCK [QRS AXIS <= -45, QR IN I, RS IN II] ANTEROSEPTAL MYOCARDIAL INFARCTION , OF INDETERMINATE AGE [40+ ms Q WAVE IN V1-V4] ABNORMAL ECG Compared to ECG 04/23/2024 16:01:16 Incomplete right bundle-branch block no longer present Myocardial infarct finding still present Electronically Signed On 06-02-2025 10:08:48 CDT by Dionte Cai M.D.
[2025-06-02 08:20] VITALS: PULSE 74
[2025-06-02 08:21] VITALS: O2SAT 97
--- NOTE | 2025-06-02 08:52 | ED_ITS ---
HPI - Chest Pain General Chief Complaint: Chest Pain Stated Complaint: CP x 3 hrs Time Seen by Provider: 06/02/25 08:10 Source: patient and EMS Mode of arrival: EMS History of Present Illness HPI narrative: 55 YEARS OLD WHITE MALE CAME TO THE ED BY AMBULANCE FROM HOME COMPLAINING OF INTERMITTENT CHEST PAIN STARTED LAST NIGHT, MID CHEST, STABBING, NO RADIATION, DENIES AGGRAVATING OR RELIEVING FACTORS, STARTED WHILE SITTING AND LAYING DOWN IN BED. PATIENT DID NOT TAKE HIS BLOOD PRESSURE MEDICATION AND CHOLESTEROL MEDICATION FOR A WHILE. HISTORY OF HYPERTENSION HYPERLIPIDEMIA, NO ANTI- PLATELET OR ANTICOAGULANT MEDICATION, HISTORY OF DEPRESSION, PATIENT SMOKES CIGARETTE DRINK ALCOHOL DAILY NO DRUGS. CURRENTLY PATIENT HOPING THAT HIS BLOOD PRESSURE GOES DOWN TO NORMAL SO HE CAN GO HOME ALTHOUGH HE STILL HAVING CHEST PAIN. Related Data Home Medications ?Medication ?Instructions ?Recorded ?Confirmed ?Last Taken ?Type albuterol sulfate 90 mcg/actuation 1 puff inhalation Q4H PRN 04/28/20 08/07/24 Unknown History aerosol inhaler Shortness Of Breath Or Wheezing lisinopril 10 mg tablet 40 mg PO DAILY 04/28/20 08/07/24 09/05/23 History amlodipine 5 mg tablet 10 mg PO DAILY 10/16/22 08/07/24 09/05/23 History cyclobenzaprine 10 mg tablet 10 mg PO BID 09/05/23 08/07/24 Unknown History simvastatin 20 mg tablet 20 mg PO DAILY 06/18/24 08/07/24 Unknown History Allergies Allergy/AdvReac Type Severity Reaction Status Date / Time No Known Drug Allergies Allergy Mild Unknown Verified 06/02/25 08:23 Review of Systems 2 Review of Systems: All systems reviewed & are unremarkable except as noted in HPI and below PMFSH Past Medical History Medical History Fullness after eating Smoker Chronic GERD DEION (obstructive sleep apnea) Asthma Hypertension Anxiety Surgical History Surgical History No history of previous surgery Family History Family History Father Alcoholism Hypertension Cerebrovascular accident Heart disease Mother Hypertension Depression Heart disease Anxiety Sibling Depression Hypertension Anxiety Social History Social History Smoking packs per day: 1.5 Smoking cigarettes per day: 30.0 Years smoked: 39 Smoking pack-years: 58.50 Smoking status: Current every day smoker Tobacco type: cigarettes Alcohol intake: current Drinks per week: 40 Alcohol use details: beer Substance use type: unknown Do You Feel Safe in your Home?: Yes Lack of Transportation: No Lack of Food: Sometimes True Current Housing: I Have Housing Concerned About Future Housing: No Difficulty Paying Gas/Electric Bills: No Difficulty Paying for Meds: No Currently Unemployed: Decline to Answer Education: Grade School Difficulty w/ Childcare or Family Care: Decline to Answer Living arrangements: alone Gender identity (if verbalized by the patient): Male Spiritual care concerns: No Exam 2 Narrative: GENERAL APPEARANCE: WELL-DEVELOPED, WELL-NOURISHED SKIN: NORMAL COLOR HEAD: NORMOCEPHALIC, NONTRAUMATIC EYES: CLEAR CONJUNCTIVA ENT: OROPHARYNX NORMAL, EARS NORMAL, NOSE NORMAL NECK: SUPPLE, NONTENDER CHEST AND RESPIRATORY: AIRWAY PATENT, NO RESPIRATORY DISTRESS, NO ACCESSORY MUSCLE USE HEART: REGULAR RATE/RHYTHM ABDOMEN: SOFT, NONTENDER, NO ORGANOMEGALY, QUIET BOWEL SOUNDS VASCULAR: NORMAL PERIPHERAL PULSES, NORMAL CAPILLARY REFILL. 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 TESTED, NO GROSS MOTOR DEFICIT Course Vital Signs Vital signs: Vital Signs Temperature 37.1 C 06/02/25 08:14 Pulse Rate 74 06/02/25 08:14 Respiratory Rate 19 06/02/25 08:14 Blood Pressure 160/104 H 06/02/25 08:14 Pulse Oximetry 97 06/02/25 08:14 Oxygen Delivery Room Air 06/02/25 08:14 Temperature 37.1 C 06/02/25 08:14 Pulse Rate 80 06/02/25 09:05 Respiratory Rate 14 06/02/25 09:05 Blood Pressure 155/100 H 06/02/25 10:04 Pulse Oximetry 99 06/02/25 09:05 Oxygen Delivery Room Air 06/02/25 08:21 MDM - Chest Pain MDM Narrative Medical decision making narrative: PATIENT CAME WITH CHEST PAIN VITAL SIGNS SHOWING BLOOD PRESSURE 164/104 OTHERWISE WITHIN NORMAL LIMIT PHYSICAL EXAMINATION SHOWING DEPRESSED LOOKING PATIENT, POOR HYGIENE CONDITION,, DOES NOT LOOK IN PAIN DIFFERENTIAL DIAGNOSIS INCLUDE CORONARY ARTERY DISEASE, NONCOMPLIANCE WITH MEDICATION, HYPERTENSION. BLOOD WORKUP TODAY INCLUDE CBC, CMP, TROPONIN, PRO BMP SHOWED ALCOHOL LEVEL TO 12 CHEST X-RAY SHOWED NO ACUTE ABNORMALITIES EKG SHOWED NORMAL SINUS RHYTHM AT 79 BEATS PER MINUTE DIAGNOSIS: CHEST PAIN, ALCOHOLIC CURRENTLY PATIENT IS AWAKE, ALERT ORIENTED X4, DECLINED TO BE HOSPITALIZED FOR CHEST PAIN WORKUP. I DECLARE THAT I HAVE PERSONALLY EXPLAINED TO THE PATIENT THE RISKS AND CONSEQUENCES INVOLVED IN LEAVING THIS FACILITY AT THIS TIME. THE BENEFITS OF CONTINUED TREATMENT AND/OR HOSPITALIZATION. AND THE ALTERNATIVES. IF ANY. TO CONTINUED TREATMENT AND/OR HOSPITALIZATION. IF APPLICABLE.I HAVE NOT IDENTIFIED ANY PSYCHOSIS, DRUGS, MENTAL ILLNESS, OR MEDICAL ILLNESS THAT ALTERS DECISION- MAKING CAPACITY (REASONING ABILITIES ). Differential Diagnosis Differential diagnosis: Likely other ( ABOVE) Medical Records Data Attestation: I reviewed the patient's medical records. Lab Data Attestation: I reviewed the patient's lab results. 06/02/25 08:58 06/02/25 08:58 Labs: Lab Results 06/02/25 Range/Units 08:58 WBC 6.4 (4.5-10.0) K/mm3 RBC 5.15 (4.6-6.20) M/mm3 Hgb 15.1 (14.0-18.0) g/dL Hct 44.7 (42.0-52.0) % MCV 86.8 (80-100) fl MCH 29.3 (26-34) pg MCHC 33.8 (32-36) g/dl RDW 15.0 H (11.5-14.5) % Plt Count 226 (150-375) k/mm3 MPV 9.8 (7.4-10.4) fl Immature Gran % (Auto) 0.5 (0-0.5) % Neut % (Auto) 54.5 (45.5-73.1) % Lymph % (Auto) 28.9 (18.3-44.2) % [place] % (Auto) 10.9 H (2.6-8.5) % Eos % (Auto) 4.0 (0-4.4) % Baso % (Auto) 1.2 (0.2-1.2) % Lymph # (Auto) 1.86 (0.9-3.2) K/mm3 [place] # (Auto) 0.7 H (0.1-0.6) K/mm3 Eos # (Auto) 0.3 (0-0.3) K/mm3 Baso # (Auto) 0.1 (0.0-0.1) K/mm3 Abs Immat Gran (auto) 0.03 (0.00-0.031) K/mm3 Absolute Neuts (auto) 3.5 (1.3-6.7) K/mm3 Absolute Nucleated RBC 0.000 (0.0-0.012) K/mm3 Nucleated RBC % 0.0 (0.0-0.2) % PT 11.9 (11.1-14.7) Seconds INR 0.9 APTT 24.7 (22.3-36.8) Seconds Sodium 139 (137-145) mmol/L Potassium 4.1 (3.4-5.0) mmol/L Chloride 104 (98-107) mmol/L Carbon Dioxide 19 L (22-30) mmol/L Anion Gap 16 H (4-12) mmol/L BUN 7 L (9-20) mg/dL Creatinine 0.85 (0.7-1.3) mg/dL Estim Creat Clear Calc 93 ml/min Estimated GFR > 60 (59 - ) Glucose 96 (65-110) mg/dL Calcium 9.3 (8.4-10.2) mg/dL Total Bilirubin 0.5 (0.2-1.3) mg/dL AST 73 H (17-59) U/L ALT 47 (6-50) U/L Alkaline Phosphatase 80 (38-126) U/L Troponin I < 0.012 (0.000-0.034) ng/mL Total Protein 8.2 (6.3-8.2) g/dL Albumin 4.8 (3.5-5.1) g/dL Lipase 201 (23-300) U/L Ethyl Alcohol 212 (<10) mg/dL ECG Data EKG #1: Attestation: I personally reviewed and interpreted this ECG as follows: ECG completion date: 06/02/25 ECG completion time: 08:57 Interpretation: NORMAL SINUS RHYTHM AT 79 BEATS PER MINUTE, LEFT ATRIAL ENLARGEMENT, RIGHT VENTRICULAR CONDUCTION DELAY, LEFT ANTERIOR FASCICULAR BLOCK, COMPARED TO EKG ON APRIL 23, 2024 INCOMPLETE RIGHT BUNDLE-BRANCH BLOCK NO LONGER PRESENT. Critical Care Time Critical Care Time Critical Care Time: No Discharge Plan Discharge Clinical Impression: Chest pain, Alcoholic Patient Disposition: Left Against Medical Advice Condition: Guarded Prognosis Patient Language: Amharic Prescriptions: No Action lisinopril 10 mg tablet 40 mg PO DAILY albuterol sulfate 90 mcg/actuation HFA aerosol inhaler 1 puff INHALATION Q4H PRN (Reason: Shortness Of Breath Or Wheezing) simvastatin 20 mg tablet 20 mg PO DAILY hydrocortisone [Procto-Med HC] 2.5 % cream with perineal applicator 1 applic RECTAL DAILY 7 Days Qty: 30 0RF erythromycin 5 mg/gram (0.5 %) ointment 0.5 inch EACH EYE QID Qty: 3.5 0RF cyclobenzaprine 10 mg tablet 10 mg PO BID amlodipine 5 mg tablet 10 mg PO DAILY omeprazole 20 mg capsule,delayed release(DR/EC) 20 mg PO .daily Qty: 90 1RF Follow-up/Referrals: Matt Gastelum MD [Primary Care Provider] -
[2025-06-02 09:05] VITALS: BP 155/105; PULSE 80; RESP 14; O2SAT 99
[2025-06-02 09:08] LABS: Hematocrit 44.7 % (42.0-52.0); Hemoglobin 15.1 g/dL (14.0-18.0); Immature Granulocyte Percent A 0.5 % (0-0.5); Lymphocytes Absolute Auto 1.86 K/mm3 (0.9-3.2); Mean Corpuscular HGB Conc 33.8 g/dl (32-36); Mean Corpuscular Hemoglobin 29.3 pg (26-34); Mean Corpuscular Volume 86.8 fl (80-100); Nucleated Red Blood Cells Absolute Auto 0.000 K/mm3 (0.0-0.012); Nucleated Red Blood Cells Perc 0.0 % (0.0-0.2); Platelet Count Result 226 k/mm3 (150-375); Red Blood Count 5.15 M/mm3 (4.6-6.20); White Blood Count 6.4 K/mm3 (4.5-10.0)
--- OUTSIDE RECORDS SUMMARY | 2025-06-02 09:18 | XMS_ITS | Data Portability ---
[facility] [address] [place] [address] Care Team Providers Care Inside Sales Agent Name Role Phone CHRIS EARL Primary Care Provider [phone] Assessment No assessment recorded. Plan of Treatment Reminders Order Date Submit Date Provider Last Modified By Organization Details Last Modified Time Details Appointments None recorded. Lab CMP, serum or plasma 2017 018 [facility], [address] [facility], [address], [place], [address], 8 06:19:40 Referral gastroente rologist referral - Please call patient to schedule appt. Venkat 2017 018 florentino Liu MD, [address] [facility] [address], [place], [address], 8 08:39:13 neurologis t referral - Please call patient to schedule appt. Thank you 2017 018 florentino Fermin MD PHD, [address], [address], [place], [address], 8 11:26:40 sleep medicine referral - Please call patient to schedule appt. Thank you [email or web address] [facility], [address] [facility], [address], [place], [address], 8 17:28:02 Procedures None recorded. Surgeries None recorded. Imaging US, chuck shen 2017 018 [facility] (One Call Scheduling), [address] [place], [address], 8 17:10:23 MRI, lumbar spine, w/o contrast 2017 018 [facility], [address], [place], [address], 8 12:22:47 MRI, cervical spine, w/o contrast 2017 018 [facility], [address], [place], [address], 8 12:22:47 FL, modified barium swallow study 2017 [facility] (One Call Scheduling), [address] [place], [address], 8 13:48:10 Medication Orders Augmentin 500 mg-125 mg tablet 2017 018 [facility] [address] [address] [facility], [address] [place], [address], 8 11:26:14 fluticason e propionate 50 mcg/actuat ion nasal spray,susp ension 2017 018 INTERFACE Not available 8 16:18:39 Ensure Active Protein-Mu scle oral liquid 2017 018 INTERFACE Not available 8 16:16:39 Patient TargetsNo targets recorded. Patient Instructions Encounter Date Encounter Id Patient Instructions Last Modified By Organization Details Last Modified Time 11/15/2017 [id number] Quitting Tobacco : Care Instructions [facility] Not available 11/15/2017 16:16:24 chronic obstructive pulmonary disease (COPD): care instructions [facility] Not available 11/15/2017 16:16:24 learning about copd and how to prevent lung infections [facility] Not available 11/15/2017 16:16:24 snoring: care instructions [facility] Not available 11/15/2017 16:16:24 07/10/2018 [id number] allergies: care instructions [facility] Not available 07/10/2018 16:18:03 managing your allergies: care instructions [facility] Not available 07/10/2018 16:18:03 07/23/2018 [id number] influenza (flu) vaccine: care instructions [facility] Not available 07/23/2018 13:05:34 09/29/2018 [id number] cervical spinal stenosis: care instructions [facility] Not available 09/29/2018 17:04:27 10/16/2018 [id number] Quitting Tobacco : Care Instructions [facility] Not available 10/16/2018 16:31:02 Acute Sinusitis: Care Instructions [facility] Not available 10/16/2018 16:31:01 chronic obstructive pulmonary disease (COPD): care instructions [facility] Not available 10/16/2018 16:31:02 learning about copd and how to prevent lung infections [facility] Not available 10/16/2018 16:31:02 Reason for Referral Please call patient to [facility] appt. Thank you Referring Physician: Chris Earl, Internal Medicine, Encounter Date: 11/15/2017 Neurologist Referral for Lum bar radiculopathy Please call patient to schedule appt. Thank you Referring Physician: Chris Earl Internal Medicine, Encounter Date: 07/10/2018 Safety Person Referral for Painless rectal bleeding Please call patient to schedule appt. Thankyou Referring Physician: Chris Earl Internal Medicine, Encounter Date: 10/16/2018 Results Created Date Observation Date Name Description Value Unit Range Abnormal Flag Note LastModifiedBy Organization Detail LastModifiedTime 12/11/19 18 12/12/2017 CMP, serum or plasm a glucose, serum 78 mg/dL 65-99 Not Available [facility] ([facility]) [address] [place], [address], 12/12/2017 06:19:40 12/11/19 18 12/12/2017 CMP, serum or plasm a BUN 8 mg/dL 6-24 Not Available [facility] ([facility]) [address] [place], [address], 12/12/2017 06:19:40 12/11/19 18 12/12/2017 CMP, serum or plasm a creatinine, serum 0.82 mg/dL 0.76-1 .27 Not Available [facility] ([facility]) [address] [place], [address], 12/12/2017 06:19:40 12/11/19 18 12/12/2017 CMP, serum or plasm a eGFR if nonafricn AM 105 mL/mi n/1.7 3 >59 Not Available [facility] ([facility]) [address] [place], [address], 12/12/2017 06:19:40 12/11/19 18 12/12/2017 CMP, serum or plasm a eGFR if africn AM 121 mL/mi n/1.7 3 >59 Not Available [facility] ([facility]) [address] [place], [address], 12/12/2017 06:19:40 12/11/19 18 12/12/2017 CMP, serum or plasm a BUN/creatini ne ratio 10 9-20 Not Available [facility] ([facility]) [address] [place], [address], 12/12/2017 06:19:40 12/11/19 18 12/12/2017 CMP, serum or plasm a sodium, serum 144 mmol/ L 134-14 4 Not Available [facility] ([facility]) [address] [place], [address], 12/12/2017 06:19:40 12/11/19 18 12/12/2017 CMP, serum or plasm a potassium, serum 4.7 mmol/ L 3.5-5. 2 Not Available [facility] ([facility]) [address] [place] [address], [address], 12/12/2017 06:19:40 12/11/19 18 12/12/2017 CMP, serum or plasm a chloride, serum 100 mmol/ L 96-106 Not Available [facility] ([facility]) [address] [place], [address], 12/12/2017 06:19:40 12/11/19 18 12/12/2017 CMP, serum or plasm a carbon dioxide, total 27 mmol/ L 18-29 Not Available [facility] ([facility]) [address] [place], [address], 12/12/2017 06:19:40 12/11/19 18 12/12/2017 CMP, serum or plasm a calcium, serum 9.9 mg/dL 8.7-10 .2 Not Available [facility] ([facility]) [address] [place], [address], 12/12/2017 06:19:40 12/11/19 18 12/12/2017 CMP, serum or plasm a protein, total, serum 7.1 g/dL 6.0-8. 5 Not Available [facility] ([facility]) [address] [place], [address], 12/12/2017 06:19:40 12/11/1912/12/2017 CMP, serum or plasm a albumin, serum 4.5 g/dL 3.5-5. 5 Not Available [facility] ([facility]) [address] [place], [address], 12/12/2017 06:19:40 12/11/1912/12/2017 CMP, serum or plasm a globulin, total 2.6 g/dL 1.5-4. 5 Not Available [facility] ([facility]) [address] [place], [address], 12/12/2017 06:19:40 12/11/1912/12/2017 CMP, serum or plasm a A/G ratio 1.7 1.2-2. 2 Not Available [facility] ([facility]) [address] [place], [address], 12/12/2017 06:19:40 12/11/19 18 12/12/2017 CMP, serum or plasm a bilirubin, total 0.4 mg/dL 0.0-1. 2 Not Available [facility] ([facility]) [address] [facility], [place], [address], 12/12/2017 06:19:40 12/11/19 18 12/12/2017 CMP, serum or plasm a alkaline phosphatase, S 73 IU/L 39-117 Not Available [facility] ([facility]) [address] [facility], [place], [address], 12/12/2017 06:19:40 12/11/19 18 12/12/2017 CMP, serum or plasm a AST (SGOT) 19 IU/L 0-40 Not Available [facility] ([facility]) [address] [facility], [place], [address], 12/12/2017 06:19:40 12/11/19 18 12/12/2017 CMP, serum or plasm a ALT (SGPT) 13 IU/L 0-44 Not Available [facility] ([facility]) [address] [facility], [place], [address], 12/12/2017 06:19:40 12/18/19 18 08/28/2017 XR, chest , 2 view No observ ation record ed. [facility] Not Available 2017 16:56:18 12/18/19 18 08/28/2017 CT, neck, soft tissu e, w/ contr ast No observ ation record ed. [facility] Not Available 2017 16:56:18 07/16/20 18 07/16/2018 [place], modif ied ivan esquivel ow study No observ ation record ed. [facility] (Imaging) [address] [place], [address], 07/16/2018 18:12:50 08/20/20 18 08/18/2017 CT, abdom en + pelvi s, w/o contr ast No observ ation record ed. [facility] Not Available 2017 16:48:37 10/01/20 18 09/30/2018 MRI, lumba r spine , w/o contr ast No observ ation record ed. [email or web address] [facility] [address], [place], [address], 10/10/2018 09:38:44 10/01/20 18 09/30/2018 MRI, cervi jenn spine , w/o contr ast No observ ation record ed. [email or web address] [facility] [address], [place], [address], 10/10/2018 09:38:45 01/02/20 19 01/02/2019 CT, maxil loaleidac ial, w/o contr ast No observ ation record ed. [email or web address] (Imaging) [address] [place], [address], 01/02/2019 17:29:34 02/04/20 19 02/03/2019 XR, cervi jenn spine No observ ation record ed. [address], [place], [address], 02/03/2019 17:21:30 11/17/19 21 11/16/2020 XR, ribs, unila teral No observ ation record ed. [facility] [address] [place], [address], 11/17/2020 12:02:34 07/21/20 21 07/20/2021 XR, chest No observ ation record ed. [facility] (One Call Scheduling) [address] [place], [address], 07/21/2021 12:07:59 Result Notes None recorded. Problems Name Problem SNOMED Code Status Onset Date Resolution Date Notes Provider Name and Address Organization Details Recorded Time Acute sinusitis 40197517 Active Danika Ramirez RN null, [place] 4 14:35:11 Chronic obstructive pulmonary disease 38291427 Active Danika Ramirez RN null, [place] - [place] 4 14:35:11 Tobacco dependence syndrome 24029369 Active Danika Ramirez RN null, [place] - [...] e 50 mcg/actua tion nasal spray,[employer] [place] 1 spray every day by intranas al [...] 73 /min 116/76 mm[Hg] Ermias Briceño MA [facility] 8 15:27:44 Date Recorded Body height Body mass index (BMI) Body weight Body temperature Oxygen saturation Oxygen saturation in Arterial blood by Pulse oximetry Heart rate Systolic And Diastolic Provider Name and Address Organization Details Last Updated DateTime 8 183.52 cm 20.2 kg/m2 93552.8 6 g 97.8 [degF] 100 % 100 % 62 /min 110/74 mm[Hg] Ermias Briceño MA [facility] 8 15:35:43 Date Recorded Body height Body mass index (BMI) Body weight Body temperature Oxygen saturation Oxygen saturation in Arterial blood by Pulse oximetry Heart rate Systolic And Diastolic Provider Name and Address Organization Details Last Updated DateTime 8 183.52 cm 20.1 kg/m2 99713.2 6 g 98.1 [degF] 98 % 98 % 61 /min 110/70 mm[Hg] Ermias Briceño MA [facility] 8 12:38:52 Date Recorded Body height Body mass index (BMI) Body weight Body temperature Oxygen saturation Oxygen saturation in Arterial blood by Pulse oximetry Heart rate Systolic And Diastolic Provider Name and Address Organization Details Last Updated DateTime 8 183.52 cm 19.9 kg/m2 86521.6 7 g 97.8 [degF] 98 % 98 % 70 /min 118/74 mm[Hg] Ermias Briceño MA [facility] 8 16:22:53 Date Recorded Body height Body mass index (BMI) Body weight Body temperature Oxygen saturation Oxygen saturation in Arterial blood by Pulse oximetry Heart rate Systolic And Diastolic Provider Name and Address Organization Details Last Updated DateTime 8 183.52 cm 20.1 kg/m2 94327.7 g 98.3 [degF] 100 % 100 % 72 /min 124/84 mm[Hg] Ermias Briceño MA [facility] 8 15:52:28 Social History None recorded. Functional Status None recorded. Mental Status None recorded. Family History Nothing Reported. Medical History Condition Response Coronary Artery Disease N Other N High Blood Pressure N Atrial Fibrillation N Thyroid Problems N Kidney or Bladder Problems N Blood Clots N COPD N Depression N GI Problems N Skin Problems N Anemia N Heart Attack (MT) N Anxiety Disorder N Diabetes N Muscle, Joint, or Bone Problems N Seizures/Epilepsy N Acid Reflux (GERD) N Cancer N Stroke N Asthma N Allergies N High Cholesterol N Hepatitis N Liver Disease N Headaches N Heart Failure N Osteoporosis N Immunizations Vaccine Type Date Status Note Provider Nam e and Address Organization Details Recorded Time COVID-19, mRNA, LNP-S, PF, 30 mcg/0.3 mL dose completed Not Available [facility] 07/26/2021 06:01:46 Influenza, split virus, quadrivalent, preservative 7 completed Not Available [facility] 11/28/2019 02:34:47 Influenza, split virus, quadrivalent, PF 8 completed Not Available [facility] 11/28/2019 02:43:42 Past Encounters Encounter ID Performer Location Encounter Start Date Encounter Closed Date Diagnosis/Indication Diagnosis SNOMED-CT Code Diagnosis ICD10 Code Diagnosis Note [id number] MD Sofia Henao (Adult Med) [address] [place] [address] 62683-790 0 10/26/2014 13:20:31 10/26/2014 17:43:42 Acute sinusitis 07277479 Chronic ob structive pulmonary disease 43838740 Tobacco de pendence syndrome 39828745 Adult [facility] th examination 331376820 [id number] MD Sofia Henao (Adult Med) [address] [place] [address] 01286-736 [id number] 01/08/2017 15:09:50 01/08/2017 16:24:41 Chronic obstructive pulmonary disease 96061220 J44.9 Tobacco de pendence syndrome 71926571 F17.522 [id number] MD Sofia Henao (Adult Med) [address] [place] [address] [id number] 0 02/05/2017 14:52:56 02/05/2017 18:07:45 Acute stress disorder 53807302 F43.0 BP re-checked later with larger cuff in sitting position on left arm the reading is 150/80 mmhg. Tobacco de pendence syndrome 46253893 F17.860 [id number] MD Sofia Henao (Adult Med) [address] [place] [address] 35336-193 0 05/20/2017 12:18:57 05/20/2017 13:40:27 Dysphagia 28048846 R13.10 Feeling some thing in the throat which makes him hard to swallowing solid food but no visible lesion in inspection in this office, no neck llymphaden opathy. [id number] MD Sofia Henao (Adult Med) [address] [place] [address] 60895-735 0 07/29/2017 12:02:47 07/29/2017 13:29:04 Dysphagia 12087189 R13.10 Feeling some thing in the throat which makes him hard to swallowing solid food but no visible lesion in inspection in this office, no neck llymphaden opathy. Chronic ob structive pulmonary disease 35511016 J44.9 Tobacco de pendence syndrome 31117069 F17.290 Used to smoke 1-2 pk/day since age of 14. [id number] MD Sofia Henao (Adult Med) [address] [place] [address] 40646-111 0 09/03/2017 13:15:34 09/04/2017 13:26:30 Chronic neck pain 2822536010 107 M54.2 Esophageal dysphagia 408 00915 R13.19 weight loss, needs nutritonal supplement . [id number] MD Sofia Henao (Adult Med) [address] [place] [address] 57396-206 0 09/30/2017 14:42:30 09/30/2017 17:20:47 Abnormal weight loss 712174822 R63.4 Chronic ob structive pulmonary disease 08948537 J44.9 Nicotine dependence 5629 4008 F17.200 History of thyroid disorder 720440124 Z86.39 Administra tion of influenza vaccine 11523229 Z23 He tolerated shot well. Chronic anxiety 04986731 9 F41.9 Chronic neck pain 266216 8028 107 M54.2 Will go to U. Acid reflux 251616638 K2 1.9 [id number] MD Sofia Henao (Adult Med) [address] [place] [address] 70916-975 0 11/15/2017 15:01:43 11/15/2017 16:34:23 Pharyngeal dryness 589512740 J39.2 Has been evaluated by ENT. Unexplaine d weight loss 703825095 R63.4 Nicotine dependence 5629 4008 F17.200 Chronic ob structive pulmonary disease 43328395 J44.9 Snoring symptoms 0850476 00 R06.83 Weakness present 5972687 07 M62.81 [id number] MD Sofia Henao (Adult Med) [address] [place] [address] [id number] 0 07/10/2018 14:52:45 07/10/2018 16:57:33 Pharyngeal dysphagia 7188085806 9105 R13.13 Chronic neck pain 620847 5393 107 M54.2 Will go to U. Lumbar radiculopathy 128 177514 M54.16 From previous injury. Esophageal dysphagia 408 18153 R13.19 weight loss, needs nutritonal supplement . Allergic rhinitis 131648 04 J30.9 He is going to contact previous ENT Dr. alford again regarding to his nose issue. [id number] [facility] [address] [place] [address] 24625-978 0 07/23/2018 12:13:45 07/24/2018 10:31:30 Administration of influenza vaccine 48892910 Z23 He tolerated shot well. Esophageal dysphagia 408 19225 R13.19 weight loss, needs nutritonal supplement . Abnormal modified barium swallowing . He has gained weight, MBS reported narrow at C5-6 level, copy of report provided to patient , will fax to his GI specialist at [facility] as his request today, 07-23-[address] Isabell Livingston. [id number] Chris Earl MD [facility] ([facility] [address] [place] [address] 76857-462 0 09/29/2018 15:58:39 09/30/2018 11:37:13 Spinal stenosis in cervical region 32827101 M48.02 REQUIRE OPEN mri Lumbar radiculopathy 128 M54.16 From previous injury.REQ UIRE OPEN MRI. [id number] [facility] [address] [place] [address] 56133-385 0 10/16/2018 15:36:07 10/17/2018 09:58:00 Painless rectal bleeding 509687095 K62.5 Cervical radiculopathy 85395264 M54.12 He has disc film and copies of report, awaiting the appointmen t of neurosurge ry referral. Lumbosacra l radiculopathy 3927558 M54.17 He has disc film and copy of report, awaiting for the appointmen t of neurosurge ry referral. Acute sinusitis 79881297 J01.90 Chronic ob structive pulmonary disease 27773090 J44.9 Nicotine dependence 5629 4008 F17.200 Gallstone 307034893 K80. 20 Health Concerns Section Related Observation LastModified by Organization Detai ls LastModified Time None Recorded Concern Status LastModified by Organization Details LastModified Time None Recorded Advance Directives Directive None Recorded Payers Insurance Date Sequence Insurance Name Policy Number Policy Waggoner Covered Member ID Waggoner Member ID Guarantor Name 01/08/2017 1 [facility] (MEDICAID HMO) Ernesto Will [id number] Ernesto Solis 11/25/2018 1 [facility] - DOS PRIOR TO 2021 (MEDICAID REPLACEMENT - HMO) Ernesto Solis [id number] Ernesto Solis 05/22/2017 2 [place] [employer] Ernesto Will [id number] Ernesto Solis Notes Date Note Type Note Provider Name and Address Organization Details Recorded Time 11/15/2017 text/html 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 He had been evaluated by ENT and GI with EGD scope, chronic neck and back and whole body pain, will see a neurologist in the near future. Weight still not coming up. Chris Earl MD Attn: Accounting[address] [place], [address], [facility] - SI 11/15/2017 16:32:00 07/10/2018 text/html 1. History of pharyngeal dysphagia, had dilatation done in [facility], certain food just can not be consumed. like steak /hamburger due to swalloing issue, on ensure supplement. Has not had modified barium swallowing test yet.2. Chronic back and neck pain from previous injury, not a candidate for operation , wants neurology referral at this side [facility]. 3. Nicotine dependence, has no intention of quitting. NKDA. Chris Earl MD Attn: Accounting[address] [place], [address], [place] [facility] 07/10/2018 16:21:22 09/29/2018 text/html Cervical spine stenosis, and lower back radiculopathy. Asking for the MRI of cervical spine and lumbAR SPINE. Chris Earl MD Attn: Accounting[address] [place], [address], [facility] - [facility] 09/29/2018 17:09:23 10/16/2018 text/html Spinal stenosis on C-spine and lumbar spine stenosis with radiculopathy, will see a neurosurgeon, also has sinus congestion, a smoker, off and on pain less rectal bleeding. NKDA. Chris Earl MD Attn: Accounting[address] [place], [address], [place] [facility] 10/16/2018 16:31:46
--- OUTSIDE RECORDS SUMMARY | 2025-06-02 09:19 | XMS_ITS | Clinical Summary ---
Author Organization [facility] Address [address] [facility] [place] [address] Phone Care Team Providers Care Supervisor [employer] Name Role Phone Matt Gastelum MD Primary Care Provider [phone] Allergies No known active allergies Medications lisinopriL [...] 2019 INFLUENZA VACCINE (#1) 2025 Care Teams Supervisor [employer] Relationship Specialty Start Date End Date Matt Gastelum MD [address] [place] [address] PCP - General Family Practice 07/12/20
[2025-06-02 09:24] LABS: INR 0.9; Prothrombin Time 11.9 Seconds (11.1-14.7)
[2025-06-02 09:25] LABS: Partial Thromboplastin Time 24.7 Seconds (22.3-36.8)
[2025-06-02 09:38] LABS: Alanine Aminotransferase 47 U/L (6-50); Albumin Level 4.8 g/dL (3.5-5.1); Alkaline Phosphatase 80 U/L (38-126); Anion Gap 16 mmol/L (4-12); Aspartate Amino Transferase 73 U/L (17-59); Bilirubin,Total 0.5 mg/dL (0.2-1.3); Blood Urea Nitrogen 7 mg/dL (9-20); Calcium 9.3 mg/dL (8.4-10.2); Carbon Dioxide 19 mmol/L (22-30); Chloride 104 mmol/L (98-107); Estimated CRCL calculation 93 ml/min; Estimated Glomerular Filt Rate > 60; Glucose 96 mg/dL (65-110); Lipase 201 U/L (23-300); Potassium 4.1 mmol/L (3.4-5.0); Sodium 139 mmol/L (137-145); Total Protein 8.2 g/dL (6.3-8.2)
[2025-06-02 09:48] LABS: Troponin I < 0.012 ng/mL (0.000-0.034)
[2025-06-02 10:04] VITALS: BP 155/100
== END 2025-06-02 10:00 | disposition left against medical advice (07) ==
PROVIDERS: Emergency Provider Emergency Medicine; PCP Family Medicine
DX: R07.9 Chest pain, unspecified (principal); F10.20 Alcohol dependence, uncomplicated; Y90.7 Blood alcohol level of 200-239 mg/100 ml; T46.5X6A Underdosing of other antihypertensive drugs, initial encounter; T46.6X6A Underdosing of antihyperlipidemic and antiarteriosclerotic drugs, initial encounter; I10 Essential (primary) hypertension; E78.5 Hyperlipidemia, unspecified; J45.909 Unspecified asthma, uncomplicated; K21.9 Gastro-esophageal reflux disease without esophagitis; G47.33 Obstructive sleep apnea (adult) (pediatric); F32.A Depression, unspecified; F41.9 Anxiety disorder, unspecified; F17.210 Nicotine dependence, cigarettes, uncomplicated; Z79.899 Other long term (current) drug therapy; R94.31 Abnormal electrocardiogram [ECG] [EKG]; I44.4 Left anterior fascicular block
CPT/HCPCS: 36415; 71046; 80053; 82077; 83690; 84484; 85025; 85610; 85730; 93005; 99284; A9270

== ENCOUNTER 2025-07-03 10:26 | Emergency (ER) | payer MEDICARE, MEDICAID, SELFPAY ==
--- OUTSIDE RECORDS SUMMARY | 2021-03-29 09:00 | XMS_ITS | Continuity of Care Document ---
Author Organization [employer] Address [address] [place] [phone] Phone Care Team Providers Care Emery Grinder Name Role Phone Julia Villa PTA Unavailable Unavailable Procedures Procedure Date Therapeutic Exercise Neuromuscular Re-Ed Manual Therapy Neuromuscular Re-Ed Manual Therapy Therapeutic Exercise Therapeutic Activities Therapeutic Exercise Neuromuscular Re-Ed Therapeutic Exercise Therapeutic Activities Neuromuscular Re-Ed Therapeutic Exercise Therapeutic Exercise Neuromuscular Re-Ed Therapeutic Activities Therapeutic Activities Neuromuscular Re-Ed Therapeutic Exercise Therapeutic Activities Therapeutic Exercise Therapeutic Activities Therapeutic Exercise Neuromuscular Re-Ed Therapeutic Exercise Neuromuscular Re-Ed Therapeutic Activities Therapeutic Activities Neuromuscular Re-Ed Therapeutic Exercise Neuromuscular Re-Ed Therapeutic Exercise Therapeutic Activities Therapeutic Activities Neuromuscular Re-Ed Therapeutic Exercise Neuromuscular Re-Ed Therapeutic Activities Therapeutic Exercise Therapeutic Activities Therapeutic Exercise Neuromuscular Re-Ed Therapeutic Activities Neuromuscular Re-Ed Therapeutic Exercise Neuromuscular Re-Ed PT Evaluation Low Complexity Therapeutic Exercise Advance Directives Directive Yes / No Effective Date File Name No Information Encounters Encounter Description Practice Location Reason(s) For Visit Diagnoses Date Provider Providers Copied on Encounter [employer], [facility] [employer] [address] [place] [address], [id number], tel:[phone] [facility] No Information 1 Daisy Dumont. . Referring Provider: Cale Santoyo, [address] [place], [place] [address], [address]. tel:[phone], [address] [place] [address] [employer] [address] [place] [address], [id number], tel:[phone] [facility] No Information 1 Scooter Noel. . Referring Provider: Cale Santoyo, [facility] [place], [address]. tel:[phone], [address] [place] [address], [id number], tel:[phone] [facility] No Information 1 Daisy Dumont. . Referring Provider: Cale Santoyo [facility] [place], [address]. tel:[phone], [address] [place] [address] [address] [place] [address], [id number], tel:[phone] [facility] No Information 1 Vera Jacinto. . Referring Provider: Cale Santoyo [facility] [place], [address]. tel:[phone], [address] [facility] 300, [place], [place], [id number], [place] tel:[phone] [facility] No Information Feb-11 14- 1 Scooter Noel. . Referring Provider: Cale Santoyo, [address] [place], [place] [address], [address]. tel:[phone], [address] [facility] 300, [place], [place], [id number], [place] tel:[phone] [facility] No Information Feb- 2- 1 Khari Graham. . Referring Provider: Cale Santoyo, [address] [place], [place] [address], [address]. tel:[phone], [address], [id number], [place] tel:[phone] [facility] No Information Mar-3 1- 1 Atre Pranoti. . Referring Provider: Cale Santoyo, [address] [place], [place] [address], [address]. tel:[phone], [address], [id number], [place] tel:[phone] [facility] No Information Mar-3 0-202 1 Atre Pranoti. . Referring Provider: Cale Santoyo, [address] [place], [place] [address], [address]. tel:[phone], [address], [id number], [place] tel:[phone] [facility] No Information Mar-2 4- 1 Atre Pranoti. . Referring Provider: Cale Santoyo, [address] [place], [place] [address], [address]. tel:[phone], [address], [id number], [place] tel:[phone] [facility] No Information Mar-2 3- 1 Vera Jacinto. . Referring Provider: Cale Santoyo, [address] [place] [address], [address]. tel:[phone], [facility] [place] [address], [place], [place], [id number], [place] tel:[phone] [facility] No Information Mar-0 - 1 Atre Pranoti. . Referring Provider: Cale Santoyo, [address] [place] [address], [address]. tel:[phone], [address] [place] [address], [id number], [place] tel:[phone] [facility] No Information Mar-0 - 1 Atre Pranoti. . Referring Provider: Cale Santoyo, [address] [place] [address], [address]. tel:[phone], [address], [id number], [place] tel:[phone] [facility] No Information b-2 1 Atre Pranoti. . Referring Provider: Cale Santoyo, [facility] [place], [address]. tel:[phone], [address], [id number], [place] tel:[phone] [facility] No Information b- 1 Atre Pranoti. . Referring Provider: Cale Santoyo, [address] [place] [address], [address]. tel:[phone], [address], [id number], [place] tel:[phone] [facility] No Information Dec- 1 Atre Pranoti. . Referring Provider: Cale Santoyo, [address] [place], [address]. tel:[phone] [employer], [address] [place] [address] [place] [address], [id number], tel:[phone] [facility] No Information b 0 1 Atre Pranoti. . Referring Provider: Cale Santoyo, [address] [place], [address]. tel:[phone] [employer], [address] [facility] [address] [place] [address], [id number], tel:[phone] [facility] No Information 0 1 Atre Pranoti. . Referring Provider: Cale Natanael, [address] [place], [address]. tel:[phone] Family History Family Member Type Diagnosis Age At Onset No Information Payers Payer name Insurance type Covered green party ID Authoriza tion(s) [place] [facility] [id number] Social History Type Description Quantity Date Captured [...]
[2025-07-03] VITALS (37 sets, daily range): BP systolic 124–182; BP diastolic 79–120; PULSE 70–108; RESP 11–25; TEMP 36.7; O2SAT 92–100
--- NOTE | ~2025-07-03 | XR_ITS ---
EXAMINATION: XR chest 1V portable 07/03/2025 11:17 INDICATION: Chest pain PROCEDURE: AP portable chest COMPARISON: 06/02/2025 FINDINGS: The lungs are clear. The cardiomediastinal silhouette is within normal limits. There are no pleural effusions. There is no pneumothorax suspected. Prominent left nipple shadow. IMPRESSION: 1: NO ACUTE CARDIOPULMONARY DISEASE. Reviewed, dictated and finalized at location O.
--- NOTE | 2025-07-03 10:34 | ECG_ITS ---
Test Date: 2025-07-03 13:26:30 Measurements Intervals Marshall Rate: 79 P: 17 AL: 176 QRS: 121 QRSD: 100 T: 10 QT: 371 QTc: 426 Interpretive Statements SINUS RHYTHM INCOMPLETE RIGHT BUNDLE BRANCH BLOCK ANTEROSEPTAL INFARCT, AGE INDETERMINATE BORDERLINE ST-T WAVE ABNORMALITY- INFERIOR LEADS BASELINE ARTIFACT- II, III, AVR, AVF ABNORMAL ECG Compared to ECG 06/02/2025 08:22:08 NO SIGNIFICANT CHANGE Electronically Signed On 07-03-2025 17:09:48 CDT by Yusuf Conley D.O.
--- OUTSIDE RECORDS SUMMARY | 2025-07-03 10:47 | XMS_ITS | Clinical Summary ---
Author Organization [facility] Address [address] [facility] [place] [address] Phone Care Team Providers Care Associate Professor Of Theology Name Role Phone Matt Gastelum MD Primary Care Provider [phone] Allergies No known active allergies Medications lisinopriL [...] 2019 INFLUENZA VACCINE (#1) 2025 Care Teams Associate Professor Of Theology Relationship Specialty Start Date End Date Matt Gastelum MD [address] [place] [address] PCP - General Family Practice 07/12/20
--- OUTSIDE RECORDS SUMMARY | 2025-07-03 10:47 | XMS_ITS | Clinical Summary ---
Author Organization [facility] Address [facility] [place] [address] Care Team Providers Care Respiratory Therapist Assistant Name Role Phone Matt Gastelum MD Primary Care Provider [phone] Ramon Roldan MD Unavailable Unavailabl e Sunil [...] - 2023-2 5 season) 2024 PHQ-2 (Physician Lynn) 11/11/2024 Meningococcal B Vaccine Aged Out No l onger eligible based on patient's age to complete this topic Meningococcal Vaccine Aged Out No jemima cholo eligible based on patient's age to complete this topic RSV Immunizations Under 20 Months Aged Out No longer eligible based on patient's age to complete this topic Insurance [place] [facility] Care Teams Respiratory Therapist Assistant Relationship Specialty Start Date End Date Matt Gastelum MD [address] [place] [address] PCP - General FAMILY PRACTICE 04/16/19 Ramon Roldan MD [address] [place] [address] Surgeon NEUROLOGICAL SURGERY 06/26/19 Sunil Livingston MD [address] [place] [address] GASTROENTEROLOGY 06/26/19
[2025-07-03 10:57] LABS: Hematocrit 45.4 % (42.0-52.0); Hemoglobin 15.0 g/dL (14.0-18.0); Immature Granulocyte Percent A 0.4 % (0-0.5); Lymphocytes Absolute Auto 1.99 K/mm3 (0.9-3.2); Mean Corpuscular HGB Conc 33.0 g/dl (32-36); Mean Corpuscular Hemoglobin 29.0 pg (26-34); Mean Corpuscular Volume 87.8 fl (80-100); Nucleated Red Blood Cells Absolute Auto 0.000 K/mm3 (0.0-0.012); Nucleated Red Blood Cells Perc 0.0 % (0.0-0.2); Platelet Count Result 233 k/mm3 (150-375); Red Blood Count 5.17 M/mm3 (4.6-6.20); White Blood Count 6.8 K/mm3 (4.5-10.0)
[2025-07-03 11:09] LABS: Alanine Aminotransferase 46 U/L (6-50); Albumin Level 4.8 g/dL (3.5-5.1); Alkaline Phosphatase 81 U/L (38-126); Anion Gap 16 mmol/L (4-12); Aspartate Amino Transferase 80 U/L (17-59); Bilirubin,Total 0.5 mg/dL (0.2-1.3); Blood Urea Nitrogen 9 mg/dL (9-20); Calcium 8.8 mg/dL (8.4-10.2); Carbon Dioxide 20 mmol/L (22-30); Chloride 101 mmol/L (98-107); Estimated CRCL calculation 101 ml/min; Estimated Glomerular Filt Rate > 60; Glucose 98 mg/dL (65-110); Potassium 4.4 mmol/L (3.4-5.0); Sodium 137 mmol/L (137-145); Total Protein 8.0 g/dL (6.3-8.2)
[2025-07-03 11:10] LABS: INR 0.9; Partial Thromboplastin Time 26.2 Seconds (22.3-36.8); Prothrombin Time 12.5 Seconds (11.1-14.7)
[2025-07-03 11:13] LABS: Lipase 97 U/L (23-300)
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
[2025-07-03 11:14] LABS: Acetaminophen < 10 ug/mL (10-30); Salicylate < 1.0 mg/dL (2-20)
[2025-07-03 11:21] LABS: NT Pro B Type Natriuretic Pept < 20 pg/mL (19.9-100); Troponin I < 0.012 ng/mL (0.000-0.034)
[2025-07-03 11:45] LABS: Thyroid Stimulating Hormone 0.547 uIU/mL (0.465-4.680)
[2025-07-03] MEDS: SODIUM CHLORIDE 0.9% IV 1,000 ML 999 ML IV CONT (12:07)
[2025-07-03 12:58] LABS: Add Urine Microscopic? NO; Appearance Urine Clear (Clear); Glucose Urine UA Negative (Negative); Leukocyte Esterase Ur Negative LEU/UL (Negative); Nitrate Urine Negative (Negative); Specific Grav Ur 1.005 (1.001-1.035)
[2025-07-03 13:15] LABS: Cannabinoid Screen Urine Negative (Negative)
--- NOTE | 2025-07-03 13:20 | ECG_ITS ---
Test Date: 2025-07-03 16:32:05 Measurements Intervals [place] Rate: 80 P: 41 CO: 159 QRS: -63 QRSD: 108 T: 47 QT: 395 QTc: 456 Interpretive Statements SINUS RHYTHM LOW QRS VOLTAGE IN PRECORDIAL LEADS INCOMPLETE RIGHT BUNDLE BRANCH BLOCK LEFT ANTERIOR FASCICULAR BLOCK CANNOT R/O SEPTAL INFARCT, AGE INDETERMINATE ABNORMAL ECG Compared to ECG 07/03/2025 13:26:30 Low QRS voltage now present Left anterior fascicular block now present Electronically Signed On 07-03-2025 17:10:33 CDT by Yusuf Conley D.O.
[2025-07-03 13:58] LABS: Troponin I < 0.012 ng/mL (0.000-0.034)
[2025-07-03 16:59] LABS: Troponin I < 0.012 ng/mL (0.000-0.034)
[2025-07-03] MEDS: THIAMINE 500 MG/NS 100 ML 500 MG/100 ML BAG 200 MG IVPB (17:19)
[2025-07-03] MEDS: ONDANSETRON INJ 4 MG/2 ML VIAL IV PUSH (17:43)
[2025-07-03] MEDS: NICOTINE (*PBKC) 21 MG PATCH 1 PATCH TRANSDERM (19:11)
[2025-07-03] MEDS: DEXTROSE 5%/0.9% SOD CHL 1,000 ML 125 ML IV CONT (19:12)
[2025-07-03] MEDS: diazePAM INJ (*CRX) 10 MG/2 ML SYRINGE 5 MG IV PUSH (19:14)
[2025-07-03] MEDS: PROCHLORPERAZINE EDISYLATE 10 MG/2 ML VIAL IV PUSH (19:15)
[2025-07-03] MEDS: FOLIC ACID 1 MG/0.2 ML INJ IV PUSH (19:33)
[2025-07-03] MEDS: LORazepam INJ (*CRX) 2 MG/ML VIAL 1 MG IV PUSH (22:05)
== END 2025-07-03 22:50 | disposition left against medical advice (07) ==
PROVIDERS: Emergency Medicine; Emergency Provider Emergency Medicine; PCP Family Medicine
DX: R07.9 Chest pain, unspecified (principal); F10.129 Alcohol abuse with intoxication, unspecified; Y90.8 Blood alcohol level of 240 mg/100 ml or more; I10 Essential (primary) hypertension; J45.909 Unspecified asthma, uncomplicated; K21.9 Gastro-esophageal reflux disease without esophagitis; G47.33 Obstructive sleep apnea (adult) (pediatric); F41.9 Anxiety disorder, unspecified; F17.210 Nicotine dependence, cigarettes, uncomplicated; R94.31 Abnormal electrocardiogram [ECG] [EKG]; I45.2 Bifascicular block; Z79.899 Other long term (current) drug therapy
CPT/HCPCS: 36415; 71045; 80053; 80143; 80179; 80307; 81003; 82077; 82948; 83690; 83880; 84443; 84484; 85025; 85610; 85730; 93005; 96361; 96365; 96375; 99284; A9270; J0780; J2060; J2405; J3360; J3411; J7030; J7042

== ENCOUNTER 2025-07-06 13:32 | Outpatient (CLI) | payer MEDICARE, MEDICAID, SELFPAY ==
--- OUTSIDE RECORDS SUMMARY | 2025-07-06 13:40 | XMS_ITS | Clinical Summary ---
Author Organization [facility] Address [address] [place] [address] Phone Care Team Providers Care Delivery Merchandiser Name Role Phone Matt Gastelum MD Primary Care Provider [phone] Allergies No known active allergies Medications lisinopriL [...] 2019 INFLUENZA VACCINE (#1) 2025 Care Teams Delivery Merchandiser Relationship Specialty Start Date End Date Matt Gastelum MD [address] [place] [address] PCP - General Family Practice 07/12/20
[2025-07-06 14:16] LABS: Hematocrit 42.4 % (42.0-52.0); Hemoglobin 14.0 g/dL (14.0-18.0); Mean Corpuscular HGB Conc 33.0 g/dl (32-36); Mean Corpuscular Hemoglobin 29.6 pg (26-34); Mean Corpuscular Volume 89.6 fl (80-100); Platelet Count Result 150 k/mm3 (150-375); Red Blood Count 4.73 M/mm3 (4.6-6.20); White Blood Count 4.7 K/mm3 (4.5-10.0)
[2025-07-06 14:30] LABS: Alanine Aminotransferase 80 U/L (6-50); Albumin Level 4.5 g/dL (3.5-5.1); Alkaline Phosphatase 65 U/L (38-126); Anion Gap 10 mmol/L (4-12); Aspartate Amino Transferase 95 U/L (17-59); Bilirubin,Total 1.5 mg/dL (0.2-1.3); Blood Urea Nitrogen 10 mg/dL (9-20); Calcium 9.5 mg/dL (8.4-10.2); Carbon Dioxide 22 mmol/L (22-30); Chloride 105 mmol/L (98-107); Cholesterol 212 mg/dL (0-200); Estimated Glomerular Filt Rate > 60; Glucose 90 mg/dL (65-110); HDL Direct 95 mg/dL; Potassium 3.8 mmol/L (3.4-5.0); Sodium 137 mmol/L (137-145); Total Protein 7.6 g/dL (6.3-8.2); Triglycerides 82 mg/dL (<150)
[2025-07-06 14:38] LABS: Hemoglobin A1C 5.4 % (<5.7); NT Pro B Type Natriuretic Pept 42 pg/mL (19.9-100)
[2025-07-06 14:59] LABS: Thyroid Stimulating Hormone 1.340 uIU/mL (0.465-4.680)
[2025-07-06 15:35] LABS: Vitamin B12 396.0 pg/mL (239-931)
== END 2025-07-06 13:33 | disposition home or self-care (01) ==
PROVIDERS: PCP Family Medicine; Visit Provider Nurse Practitioner Family
DX: F10.10 Alcohol abuse, uncomplicated (principal); I10 Essential (primary) hypertension; R53.83 Other fatigue; E78.5 Hyperlipidemia, unspecified; R63.5 Abnormal weight gain; Z13.1 Encounter for screening for diabetes mellitus; I50.23 Acute on chronic systolic (congestive) heart failure; E55.0 Rickets, active
CPT/HCPCS: 36415; 80053; 80061; 82248; 82306; 82607; 82746; 83036; 83880; 84443; 85027

== ENCOUNTER 2025-07-16 00:58 | Emergency (ER) | payer MEDICARE, MEDICAID, SELFPAY ==
--- NOTE | ~2025-07-16 | XR_ITS ---
EXAM/PROCEDURE: XR chest 1V portable - 07/16/2025 1:15 CDT HISTORY: 55 years old Male with Chest pain TECHNIQUE: AP view(s) of the chest. COMPARISON: None available. FINDINGS: LUNGS/ PLEURA: No focal consolidation. No appreciable pneumothorax or large pleural effusion. HEART/ MEDIASTINUM: Heart appears normal in size. BONES: No acute osseous abnormality. OTHER: Visualized upper abdomen is unremarkable. IMPRESSION: No acute process. Reviewed, dictated and finalized at location N. IMPRESSION: No acute process.
[2025-07-16 00:54] VITALS: BP 180/117; PULSE 94; RESP 18; TEMP 36.9; O2SAT 100
--- NOTE | 2025-07-16 01:07 | ECG_ITS ---
Test Date: 2025-07-16 01:09:20 Measurements Intervals [place] Rate: 86 P: 48 [place]: 186 QRS: -61 QRSD: 99 T: 48 QT: 341 QTc: 408 Interpretive Statements SINUS RHYTHM INCOMPLETE RIGHT BUNDLE BRANCH BLOCK [90+ ms QRS DURATION, TERMINAL R IN V1/V2, 40+ ms S IN I/aVL/V4/V5/V6] LEFT ANTERIOR FASCICULAR BLOCK [QRS AXIS <= -45, QR IN I, RS IN II] SEPTAL INFARCT, AGE INDETERMINATE Compared to ECG 07/03/2025 16:32:05 No significant changes Electronically Signed On 07-16-2025 12:36:36 CDT by John Land M.D.
[2025-07-16 01:15] VITALS: O2SAT 99
--- NOTE | 2025-07-16 01:27 | ED.CHESTPAIN ---
HPI - Chest Pain General Chief Complaint: Chest Pain Stated Complaint: chest pain Time Seen by Provider: 07/16/25 01:02 History of Present Illness HPI narrative: Patient is a 55-year-old male who presents emergency department this evening complaining of chest pain for the past few days. Patient also states that his blood pressure has been high. Admits to history of high blood pressure any supposed to be on 2 different medications, however, patient states that he has not been taking them for the past 3 days. States that he has not run out of his blood pressure medications but just forgets to take them. States that when his blood pressure is elevated this does cause him some chest pain and states that in the past he has had similar chest pain of time his blood pressure was elevated. Denies any history of coronary artery disease. Currently states that his chest pain has resolved and is only concerned about his blood pressure being elevated. Denies any recent illness, fevers or chills. No additional symptoms or concerns at this time. Related Data Home Medications ?Medication ?Instructions ?Recorded ?Confirmed ?Last Taken ?Type albuterol sulfate 90 mcg/actuation 1 puff inhalation Q4H PRN 04/28/20 08/07/24 Unknown History aerosol inhaler Shortness Of Breath Or Wheezing lisinopril 10 mg tablet 40 mg PO DAILY 04/28/20 08/07/24 09/05/23 History amlodipine 5 mg tablet 10 mg PO DAILY 10/16/22 08/07/24 09/05/23 History cyclobenzaprine 10 mg tablet 10 mg PO BID 09/05/23 08/07/24 Unknown History simvastatin 20 mg tablet 20 mg PO DAILY 06/18/24 08/07/24 Unknown History Allergies Allergy/AdvReac Type Severity Reaction Status Date / Time No Known Drug Allergies Allergy Mild Unknown Verified 07/03/25 10:55 Review of Systems Review of Systems: All systems are reviewed and are negative unless stated otherwise in the HPI. PMF Past Medical History Medical History Fullness after eating Smoker Chronic GERD DEION (obstructive sleep apnea) Asthma Hypertension Anxiety Surgical History Surgical History No history of previous surgery Family History Family History Father Alcoholism Hypertension Cerebrovascular accident Heart disease Mother Hypertension Depression Heart disease Anxiety Sibling Depression Hypertension Anxiety Social History Social History Smoking packs per day: 1.5 Smoking cigarettes per day: 30.0 Years smoked: 39 Smoking pack-years: 58.50 Smoking status: Current every day smoker Tobacco type: cigarettes Alcohol intake: current Drinks per week: 40 Alcohol use details: beer Substance use type: unknown Do You Feel Safe in your Home?: Yes Lack of Transportation: No Lack of Food: Sometimes True Current Housing: I Have Housing Concerned About Future Housing: No Difficulty Paying Gas/Electric Bills: No Difficulty Paying for Meds: No Currently Unemployed: Decline to Answer Education: Grade School Difficulty w/ Childcare or Family Care: Decline to Answer Living arrangements: alone Gender identity (if verbalized by the patient): Male Spiritual care concerns: No Exam Narrative: General: Alert, awake, afebrile, in no acute distress. HEENT: PERRL, no rhinorrhea, no post nasal drip, oropharynx clear. Neck: Trachea midline, no JVD, no lymphadenopathy. Cardiovascular: Regular rate and rhythm, no murmurs, rubs or gallops, no peripheral edema. Respiratory: Clear to auscultation bilaterally, no tachypnea, no wheezing, no rhonchi, no rubs, no respiratory distress. Abdomen: Soft, nontender, nondistended, no rebound, no guarding, no peritoneal signs. Musculoskeletal: No joint swelling or deformity, normal muscle tone. Skin: No rashes or petechia, no signs of infection. Psychiatric: Alert and oriented, normal behavior and judgment for situation. Neurological: Alert and oriented to person, place, and time. Follows all commands. No focal deficits, speech is clear and fluent. Course Vital Signs Vital signs: Vital Signs Temperature 98.4 F 07/16/25 00:54 Pulse Rate 94 07/16/25 00:54 Respiratory Rate 18 07/16/25 00:54 Blood Pressure 180/117 H 07/16/25 00:54 Pulse Oximetry 100 07/16/25 00:54 Oxygen Delivery Room Air 07/16/25 00:54 Temperature 98.4 F 07/16/25 00:54 Pulse Rate 94 07/16/25 00:54 Respiratory Rate 18 07/16/25 00:54 Blood Pressure 180/117 H 07/16/25 00:54 Pulse Oximetry 99 07/16/25 01:15 Oxygen Delivery Room Air 07/16/25 01:15 MDM - Chest Pain MDM Narrative Medical decision making narrative: The patient was evaluated by myself in the emergency department. History is obtained from patient who is an independent historian and physical exam was performed. External medical records were reviewed at this time. IV was established and pertinent tests were ordered. Patient was administered 20 mg of IV Pepcid. EKG was obtained which revealed sinus rhythm rate of 86 beats per minute with right bundle branch block, otherwise no evidence of acute ischemia. EKG was independently interpreted by me and is currently pending official cardiology read. Laboratory results obtained revealing a blood alcohol level of 333 otherwise unremarkable. Troponin negative. Imaging studies obtained included CXR which was independently interpreted by me revealing no acute cardiopulmonary process, which is pending final radiology interpretation. Differential diagnosis considerations include acute coronary syndrome, peptic ulcer disease/GERD, hypertensive urgency versus emergency, infectious process such as pneumonia, acute viral syndrome. Comorbidities impacting this visit include history of hypertension and medical noncompliance. I have evaluated and discussed social determinants of health with the patient that could potentially impact subsequent diagnosis and treatment plans. On repeat assessment of the patient, reevaluation revealed that the patient is doing well and is in no acute distress. Patient symptoms have improved since he arrived to our emergency department. Repeat vital signs were all reviewed and noted to be stable. Patient's blood pressure did improve without administration of any medications, currently ranging in the 140s systolic. Differential diagnosis and treatment plan were discussed with the patient at bedside. Patient agrees with discussion and after shared medical decision making agrees with discharge. All questions were answered to the patient's satisfaction. Patient will follow up with his PCP in 3-5 days. Patient was provided with strict return precautions and instructed to return to the emergency department if any new or worsening symptoms develop. The patient was discharged home to the care of his son who is his sober ride given his acute alcohol intoxication. Lab Data 07/16/25 01:09 07/16/25 01:09 Labs: Lab Results 07/16/25 Range/Units 01:09 WBC 7.9 (4.5-10.0) K/mm3 RBC 5.47 (4.6-6.20) M/mm3 Hgb 16.0 (14.0-18.0) g/dL Hct 47.1 (42.0-52.0) % MCV 86.1 (80-100) fl MCH 29.3 (26-34) pg MCHC 34.0 (32-36) g/dl RDW 14.6 H (11.5-14.5) % Plt Count 320 D (150-375) k/mm3 MPV 10.0 (7.4-10.4) fl Immature Gran % (Auto) Not Reportable Neut % (Auto) Not Reportable Lymph % (Auto) Not Reportable [place] % (Auto) Not Reportable Eos % (Auto) Not Reportable Baso % (Auto) Not Reportable Lymph # (Auto) Not Reportable [place] # (Auto) Not Reportable Eos # (Auto) Not Reportable Baso # (Auto) Not Reportable Abs Immat Gran (auto) Not Reportable Absolute Neuts (auto) Not Reportable Absolute Nucleated RBC Not Reportable Total Counted 100 Neutrophils % (Manual) 50 (46-73) % Band Neutrophils % Not Reportable Lymphocytes % (Manual) 40.0 (18-44) % Monocytes % (Manual) 6 (3-9) % Eosinophils % (Manual) 3 (0-4) % Basophils % (Manual) 1 (0-1) % Nucleated RBC % Not Reportable Abs Lymphs (Manual) 3.16 (1.1-4.5) K/mm3 Abs Monocytes (Manual) 0.47 (0.1-0.90) K/mm3 Absolute Eos (Manual) 0.23 (0.02-0.50) K/mm3 Abs Basophils (Manual) 0.07 (0.0-0.1) K/mm3 Atypical Lymphocytes Present Smudge Cells Present Platelet Estimate Adequate (Adequate) Clumped Platelets Present % Immature Plt Fraction 4.6 (0.9-11.2) % Schistocytes None seen PT 12.7 (11.1-14.7) Seconds INR 1.0 APTT 25.3 (22.3-36.8) Seconds Sodium 137 (137-145) mmol/L Potassium 4.2 (3.4-5.0) mmol/L Chloride 101 (98-107) mmol/L Carbon Dioxide 21 L (22-30) mmol/L Anion Gap 15 H (4-12) mmol/L BUN 6 L (9-20) mg/dL Creatinine 0.75 (0.7-1.3) mg/dL Estim Creat Clear Calc 105 ml/min Estimated GFR > 60 (59 - ) Glucose 110 (65-110) mg/dL Calcium 9.1 (8.4-10.2) mg/dL Magnesium 2.2 (1.6-2.3) mg/dL Total Bilirubin 0.3 (0.2-1.3) mg/dL AST 54 (17-59) U/L ALT 40 (6-50) U/L Alkaline Phosphatase 80 (38-126) U/L Troponin I < 0.012 (0.000-0.034) ng/mL Total Protein 8.6 H (6.3-8.2) g/dL Albumin 5.1 (3.5-5.1) g/dL Lipase 158 (23-300) U/L Ethyl Alcohol 333 H* (<10) mg/dL Discharge Plan Discharge Clinical Impression: Hypertension, Chest pain, Medically noncompliant, Alcohol intoxication Patient Disposition: Home Condition: Stable Instructions: Antibiotic Form, Chest Pain (ED), Alcohol Intoxication (DC), Abuse of Alcohol (DC) Additional Instructions: Please follow-up with the family doctor within the next 3-5 days. Return to ED if any new or worsening symptoms develop. Take your blood pressure medications as prescribed. Patient Language: Tajik Prescriptions: No Action lisinopril 10 mg tablet 40 mg PO DAILY albuterol sulfate 90 mcg/actuation HFA aerosol inhaler 1 puff INHALATION Q4H PRN (Reason: Shortness Of Breath Or Wheezing) simvastatin 20 mg tablet 20 mg PO DAILY hydrocortisone [Procto-Med HC] 2.5 % cream with perineal applicator 1 applic RECTAL DAILY 7 Days Qty: 30 0RF erythromycin 5 mg/gram (0.5 %) ointment 0.5 inch EACH EYE QID Qty: 3.5 0RF cyclobenzaprine 10 mg tablet 10 mg PO BID amlodipine 5 mg tablet 10 mg PO DAILY omeprazole 20 mg capsule,delayed release(DR/EC) 20 mg PO .daily Qty: 90 1RF Follow-up/Referrals: Matt Gastelum MD [Primary Care Provider, [facility]] - 3 Days Time of Disposition: 03:47
[2025-07-16 01:38] LABS: Hematocrit 47.1 % (42.0-52.0); Hemoglobin 16.0 g/dL (14.0-18.0); Immature Platelet Fraction Pct 4.6 % (0.9-11.2); Mean Corpuscular HGB Conc 34.0 g/dl (32-36); Mean Corpuscular Hemoglobin 29.3 pg (26-34); Mean Corpuscular Volume 86.1 fl (80-100); Platelet Count Result 320 k/mm3 (150-375); Red Blood Count 5.47 M/mm3 (4.6-6.20); White Blood Count 7.9 K/mm3 (4.5-10.0)
[2025-07-16 01:49] LABS: INR 1.0; Prothrombin Time 12.7 Seconds (11.1-14.7)
[2025-07-16 01:50] LABS: Partial Thromboplastin Time 25.3 Seconds (22.3-36.8)
[2025-07-16 01:57] LABS: Alanine Aminotransferase 40 U/L (6-50); Albumin Level 5.1 g/dL (3.5-5.1); Alkaline Phosphatase 80 U/L (38-126); Anion Gap 15 mmol/L (4-12); Aspartate Amino Transferase 54 U/L (17-59); Bilirubin,Total 0.3 mg/dL (0.2-1.3); Blood Urea Nitrogen 6 mg/dL (9-20); Calcium 9.1 mg/dL (8.4-10.2); Carbon Dioxide 21 mmol/L (22-30); Chloride 101 mmol/L (98-107); Estimated CRCL calculation 105 ml/min; Estimated Glomerular Filt Rate > 60; Glucose 110 mg/dL (65-110); Lipase 158 U/L (23-300); Magnesium 2.2 mg/dL (1.6-2.3); Potassium 4.2 mmol/L (3.4-5.0); Sodium 137 mmol/L (137-145); Total Protein 8.6 g/dL (6.3-8.2)
[2025-07-16] MEDS: SODIUM CHLORIDE 0.9% IV 1,000 ML 999 ML IV CONT (02:01)
[2025-07-16] MEDS: ASPIRIN 81 MG CHEWABLE TABLET 324 MG PO (02:03)
[2025-07-16] MEDS: FAMOTIDINE 20 MG/2 ML VIAL IV PUSH (02:03)
[2025-07-16 02:05] LABS: Basophils Absolute Manual 0.07 K/mm3 (0.0-0.1); Basophils Percent Manual 1 % (0-1); Eosinophils Absolute Manual 0.23 K/mm3 (0.02-0.50); Eosinophils Percent Manual 3 % (0-4); Lymphocytes Absolute Manual 3.16 K/mm3 (1.1-4.5); Lymphocytes Percent Manual 40.0 % (18-44); Monocytes Absolute Manual 0.47 K/mm3 (0.1-0.90); Monocytes Percent Manual 6 % (3-9); Neutrophils Percent Manual 50 % (46-73); Total Cells Counted 100
[2025-07-16 02:06] LABS: Schistocytes None Seen; Smudge Cells PRESENT
[2025-07-16 02:08] LABS: Troponin I < 0.012 ng/mL (0.000-0.034)
--- OUTSIDE RECORDS SUMMARY | 2025-07-16 02:46 | XMS_ITS | Clinical Summary ---
Author Organization [employer] [facility] Address [address] [place] [address] Care Team Providers Care Revenue Cycle Administrator Name Role Phone Matt Gastelum MD Primary Care Provider [phone] Source Comments [facility],non-owned Affiliates and Associated Physician Practices is amultiple site organization consisting of ambulatory clinics and hospital sitesin [place], [place], [place] and [place]. This disclosure is being madepursuant to the Care Everywhere program and may not contain all information available regarding this patient. Last updated 18.[employer] [facility] Allergies No known active allergies Medications * Be aware that medications may not be up to date on this document. Alwaysverify current medications with the patient. raNITIdine (ZANTAC) 150 MG tablet Take 150 mg by mouth BID. 09/12/2017 Active albuterol HFA (PROVENTIL;VERONICA GHADA;PROAIR) 108 (90 Base) MCG/ACT inhaler Inhale by mouth as needed 09/23/2019 Active Nutritional Supplements (ENSURE ACTIVE PO) 237 mL Active ALPRAZolam (XANAX) 0.25 MG tablet Take 0.25 mg by mouth as needed 12/11/2019 Active amoxicillin-clav ulanate (AUGMENTIN) 875-125 MG tablet Take 875 mg by mouth 2 times daily 12/11/2019 Active cyclobenzaprine (FLEXERIL) 10 MG tablet Take 10 mg by mouth as needed 01/01/2020 Active naproxen (NAPROSYN) 500 MG tablet Take 500 mg by mouth as needed 01/06/2020 Active fluticasone propionate (FLONASE) 50 MCG/ACT nasal spray [place] 50 sprays into each nostril 2 times [...] dysphagia 10/24/2017 Abnormal weight loss 09/12/2017 Immunizations Immunization Administration Dates Next Due INFLUENZA VACCINE 11/24/2019 [...] at Not on file Legal Sex Male 5:13 PM CHROME PLATER Gender Identity Not on file Sexual Orientation Not on file Last Filed Vital Signs Vital Sign Reading Time Taken Comments Blood Pressure 153/107 06/05/2021 2:18 PM CDT Pulse 82 06/05/2021 2:18 PM CDT Temperature 36.3 C (97.3 F) 06/05/2021 2:18 PM CDT Respiratory Rate 18 10/24/2017 10:06 AM CHROME PLATER Oxygen Saturation 97% 06/05/2021 2:18 PM CDT Inhaled Oxygen Concentration - - Weight 61.2 kg (135 lb) 06/05/2021 2:18 PM CDT Height 182.9 cm (6') 06/05/2021 2:18 PM CDT Body Mass Index 18.31 06/05/2021 2:18 PM CDT Plan of Treatment Health Maintenance Due Date Last Done Comments STEVEN MandujanoAGES 45-75) - COL ON CA SCREENING 1970 [...] 50+ (1 of 2 - PCV) 02/14/1988 ZOSTER VACCINE (1 of 2) 2019 DEPRESSION SCREENING 11/11/2024 MEDICARE AWV CALENDAR YEAR 2024 COVID-19 VACCINE (1 - 2023-2 5 season) 2025 INFLUENZA VACCINE (#1) 2025 0, 11/24/2019 HIB VACCINE Aged Out No longer eligi [...] patient's age to complete this topic Insurance [facility] [employer] MEDICARE ADV MEDICAID - OUT OF STATE Care Teams Revenue Cycle Administrator Relationship Specialty Start Date End Date Matt Gastelum MD [address] [place] [address] PCP - General 01/04/21
--- OUTSIDE RECORDS SUMMARY | 2025-07-16 02:46 | XMS_ITS | Clinical Summary ---
Author Organization [facility] Address [facility] [place] [address] Care Team Providers Care Clinical Supervisor Name Role Phone Matt Gastelum MD Primary Care Provider + [phone] Ramon Roldan MD Unavailable Unavailabl e Sunil [...] 02/14/1988 Zoster Vaccines (1 of 2) 2019 PHQ-2 (Physician [place]) 11/11/2024 COVID-19 Vaccine (2023-2 5 season) 2025 Meningococcal B Vaccine Aged Out No l onger eligible based on patient's age to complete this topic Meningococcal Vaccine Aged Out No jemima cholo eligible based on patient's age to complete this topic RSV Immunizations Under 20 Months Aged Out No longer eligible based on patient's age to complete this topic Insurance [facility] Care Teams Clinical Supervisor Relationship Specialty Start Date End Date Matt Gastelum MD [address] [place] [address] PCP - General FAMILY PRACTICE 04/16/19 Ramon Roldan MD [address] [place] [address] Surgeon NEUROLOGICAL SURGERY 06/26/19 Sunil Livingston MD [address] [place] [address] GASTROENTEROLOGY 06/26/19
--- OUTSIDE RECORDS SUMMARY | 2025-07-16 02:46 | XMS_ITS | Clinical Summary ---
Author Organization [facility] Address [address] [place] [address] Phone Care Team Providers Care Dry Cleaner Presser Name Role Phone Matt Gastelum MD Primary Care Provider [phone] Allergies No known active allergies Medications lisinopriL [...] 2019 INFLUENZA VACCINE (#1) 2025 Care Teams Dry Cleaner Presser Relationship Specialty Start Date End Date Matt Gastelum MD [address] [place] [address] PCP - General Family Practice 07/12/20
[2025-07-16 04:00] VITALS: BP 100/64; PULSE 64; RESP 12; TEMP 36.8; O2SAT 98
== END 2025-07-16 04:01 | disposition home or self-care (01) ==
PROVIDERS: Emergency Provider Emergency Medicine; PCP Family Medicine
DX: R07.9 Chest pain, unspecified (principal); I10 Essential (primary) hypertension; T46.5X6A Underdosing of other antihypertensive drugs, initial encounter; Z91.138 Patient's unintentional underdosing of medication regimen for other reason; F10.129 Alcohol abuse with intoxication, unspecified; Y90.8 Blood alcohol level of 240 mg/100 ml or more; J45.909 Unspecified asthma, uncomplicated; K21.9 Gastro-esophageal reflux disease without esophagitis; G47.33 Obstructive sleep apnea (adult) (pediatric); F17.210 Nicotine dependence, cigarettes, uncomplicated
CPT/HCPCS: 36415; 71045; 80053; 82077; 83690; 83735; 84484; 85025; 85055; 85610; 85730; 93005; 96361; 96374; 99284; A9270; J7030

== ENCOUNTER 2025-07-20 16:14 | Outpatient (CLI) | payer MEDICARE, MEDICAID, SELFPAY ==
--- OUTSIDE RECORDS SUMMARY | 2021-03-29 09:00 | XMS_ITS | Continuity of Care Document ---
Author Organization [employer] Address [address] [place] [phone] Phone Care Team Providers Care Warm In Worker Name Role Phone Julia Villa PTA Unavailable Unavailable Procedures Procedure Date Neuromuscular Re-Ed Therapeutic Exercise Manual Therapy Neuromuscular Re-Ed Therapeutic Exercise Manual Therapy Therapeutic Activities Therapeutic Exercise Therapeutic Exercise Neuromuscular Re-Ed Therapeutic Activities Therapeutic Exercise Neuromuscular Re-Ed Therapeutic Exercise Neuromuscular Re-Ed Therapeutic Activities Therapeutic Exercise Neuromuscular Re-Ed Therapeutic Activities Therapeutic Activities Therapeutic Exercise Therapeutic Activities Therapeutic Exercise Neuromuscular Re-Ed Neuromuscular Re-Ed Therapeutic Activities Therapeutic Exercise Therapeutic Activities Therapeutic Exercise Neuromuscular Re-Ed Therapeutic Exercise Neuromuscular Re-Ed Therapeutic Activities Therapeutic Activities Neuromuscular Re-Ed Therapeutic Exercise Neuromuscular Re-Ed Therapeutic Activities Therapeutic Exercise Therapeutic Activities Therapeutic Exercise Neuromuscular Re-Ed Neuromuscular Re-Ed Therapeutic Activities Therapeutic Exercise Neuromuscular Re-Ed PT Evaluation Low Complexity Therapeutic Exercise Advance Directives Directive Yes / No Effective Date File Name No Information Encounters Encounter Description Practice Location Reason(s) For Visit Diagnoses Date Provider Providers Copied on Encounter [employer], [facility] [employer] [address] [place] [address], [id number], tel:[phone] [facility] No Information 1 Daisy Dumont. . Referring Provider: Cale Santoyo, [address] [place], [place] [address], [address]. tel:[phone], [address] [place] [address] [employer] [address] [place] [address], [id number], tel:[phone] [facility] No Information 1 Scooter Noel. . Referring Provider: Cale Santoyo, [facility] [place], [address]. tel:[phone], [address] [place] [address], [id number], tel:[phone] [facility] No Information 1 Daisy Dumont. . Referring Provider: Cale Santoyo [facility] [place], [address]. tel:[phone], [address] [place] [address] [employer] [address] [place] [address], [id number], tel:[phone] [facility] No Information Feb- 1 Vera Jacinto. . Referring Provider: Cale Santoyo [facility] [place], [address]. tel:[phone], [address] [facility] [address], [address], [place], [id number], [place] tel:[phone] [facility] No Information Feb-11 14- 1 Scooter Noel. . Referring Provider: Cale Santoyo, [address] [place], [place] [address], [address]. tel:[phone], [address] [facility] [address], [address], [place], [id number], [place] tel:[phone] [facility] No Information Feb- 2- 1 Khari Graham. . Referring Provider: Cale Santoyo, [address] [place], [place] [address], [address]. tel:[phone], [address], [id number], [place] tel:[phone] [facility] No Information Mar-3 1- 1 Atre Pranoti. . Referring Provider: Cale Santoyo, [address] [place], [place] [address], [address]. tel:[phone], [address], [id number], [place] tel:[phone] [facility] No Information Mar-3 0-202 1 Atre Pranoti. . Referring Provider: Cale Santoyo, [address] [place], [place] [address], [address]. tel:[phone], [address], [id number], [place] tel:[phone] [facility] No Information Mar-2 4- 1 Atre Pranoti. . Referring Provider: Cale Santoyo, [address] [place], [place] [address], [address]. tel:[phone], [address] [place] [address], [id number], [place] tel:[phone] [facility] No Information Mar-2 3- 1 Vera Jacinto. . Referring Provider: Cale Santoyo, [address] [place] [address], [address]. tel:[phone], [facility] [place] [address], [address], [id number], [place] tel:[phone] [facility] No Information Mar-0 - 1 Atre Pranoti. . Referring Provider: Cale Santoyo, [address] [place] [address], [address]. tel:[phone], [address] [place] [address], [id number], [place] tel:[phone] [facility] No Information Mar-0 - 1 Atre Pranoti. . Referring Provider: Cale Santoyo, [address] [place] [address], [address]. tel:[phone], [address], [id number], [place] tel:[phone] [facility] No Information b-2 1 Atre Pranoti. . Referring Provider: Cale Santoyo, [facility] [place], [address]. tel:[phone], [address], [id number], [place] tel:[phone] [facility] No Information b- 1 Atre Pranoti. . Referring Provider: Cale Santoyo, [address] [place] [address], [address]. tel:[phone], [address], [id number], [place] tel:[phone] [facility] No Information Dec- 1 Atre Pranoti. . Referring Provider: Cale Santoyo, [address] [place], [address]. tel:[phone] [employer], [address] [place] [address] [employer] [address] [place] [address], [id number], tel:[phone] [facility] No Information b 0 1 Atre Pranoti. . Referring Provider: Cale Santoyo, [address] [place], [address]. tel:[phone] [employer], [address] [facility] [address] [place] [address], [id number], tel:[phone] [facility] No Information 0 1 Atre Pranoti. . Referring Provider: Cale Natanael, [address] [place], [address]. tel:[phone] Family History Family Member Type Diagnosis Age At Onset No Information Payers Payer name Insurance type Covered democrat ID Authoriza tion(s) [place] [facility] [id number] Social History Type Description Quantity Date Captured [...]
--- NOTE | ~2025-07-20 | US_ITS ---
EXAMINATION: US abdomen complete, 07/20/2025 16:00 CDT HISTORY: other ascites COMPARISON: None Technique: Greenberg-scale and color Doppler images were obtained. Findings: LIVER: Moderate increased echogenicity of the liver. . GALLBLADDER/BILIARY: Unremarkable.No cholelithiais, wall thickening or pericholecystic fluid. No biliary dilatation. CBD 3 mm. [place] sign negative. PANCREAS: Unremarkable. SPLEEN: Unremarkable, no splenomegaly. KIDNEYS: Right Kidney: Right kidney 11.8 x 5 x 5.5 cm, normal. Left Kidney: Left kidney 11.7 x 5.5 x 4.9 cm, normal. AORTA: Normal caliber aorta. IVC: Unremarkable. FREE FLUID: None. Impression: Moderate hepatic steatosis versus hepatocellular disease. No ascites identified. Reviewed, dictated and finalized at location A. Impression: Moderate hepatic steatosis versus hepatocellular disease. No ascites identified .
--- OUTSIDE RECORDS SUMMARY | 2025-07-20 17:17 | XMS_ITS | Clinical Summary ---
Author Organization [facility] Address [facility] [place] [address] Care Team Providers Care Red Mud Thickener Operator Name Role Phone Matt Gastelum MD Primary Care Provider + [phone] Ramon Roldan MD Unavailable Unavailabl e Sunil [...] Vaccines (1 of 2) 2019 PHQ-2 (Physician [place]) 11/11/2024 COVID-19 Vaccine (2023-2 5 season) 2025 Meningococcal B Vaccine Aged Out No l onger eligible based on patient's age to complete this topic Meningococcal Vaccine Aged Out No jemima cholo eligible based on patient's age to complete this topic RSV Immunizations Under 20 Months Aged Out No longer eligible based on patient's age to complete this topic Insurance [facility] Care Teams Red Mud Thickener Operator Relationship Specialty Start Date End Date Matt Gastelum MD [address] [place] [address] PCP - General FAMILY PRACTICE 04/16/19 Ramon Roldan MD [address] [place] [address] Surgeon NEUROLOGICAL SURGERY 06/26/19 Sunil Livingston MD [address] [place] [address] GASTROENTEROLOGY 06/26/19
--- OUTSIDE RECORDS SUMMARY | 2025-07-20 17:17 | XMS_ITS | Clinical Summary ---
Author Organization [employer] Address [address] [place] [address] Care Team Providers Care Cash Teller Name Role Phone Matt Gastelum MD Primary Care Provider [phone] Source Comments [facility],non-owned Affiliates and Associated Physician Practices is amultiple site organization consisting of ambulatory clinics and hospital sitesin [place], [place], [place] and [place]. This disclosure is being madepursuant to the Care Everywhere program and may not contain all information available regarding this patient. Last updated 18.[employer] [facility] Allergies No known active allergies Medications * [...] fluticasone propionate (FLONASE) 50 MCG/ACT nasal spray [place] 50 sprays into each nostril 2 times [...] on file Legal Sex Male 5:13 PM INFORMAL WAITER/WAITRESS Gender Identity Not on file Sexual Orientation Not on file Last Filed Vital Signs Vital Sign Reading Time Taken Comments Blood Pressure 153/107 06/05/2021 2:18 PM CDT Pulse 82 06/05/2021 2:18 PM CDT Temperature 36.3 C (97.3 F) 06/05/2021 2:18 PM CDT Respiratory Rate 18 10/24/2017 10:06 AM INFORMAL WAITER/WAITRESS Oxygen Saturation 97% 06/05/2021 2:18 PM CDT [...] patient's age to complete this topic Insurance [facility] MEDICARE ADV MEDICAID - OUT OF STATE Care Teams Cash Teller Relationship Specialty Start Date End Date Matt Gastelum MD [address] [place] [address] PCP - General 01/04/21
--- OUTSIDE RECORDS SUMMARY | 2025-07-20 17:17 | XMS_ITS | Clinical Summary ---
Author Organization [facility] Address [address] [place] [address] Phone Care Team Providers Care Senior Engineer Name Role Phone Matt Gastelum MD Primary Care Provider [phone] Allergies No known active allergies Medications lisinopriL [...] 2019 INFLUENZA VACCINE (#1) 2025 Care Teams Senior Engineer Relationship Specialty Start Date End Date Matt Gastelum MD [address] [place] [address] PCP - General Family Practice 07/12/20
== END 2025-07-20 16:15 | disposition home or self-care (01) ==
LOC: ANHIMG 16:22
PROVIDERS: PCP Family Medicine; Visit Provider Nurse Practitioner Family
DX: R10.9 Unspecified abdominal pain (principal); R18.8 Other ascites
CPT/HCPCS: 76700

== ENCOUNTER 2025-07-27 15:06 | Outpatient (CLI) | payer MEDICARE, MEDICAID, SELFPAY ==
--- NOTE | ~2025-07-27 | XR_ITS ---
EXAMINATION: XR chest 2V, 07/27/2025 15:17 CDT HISTORY: shortness of breath, SMOKER X 40 YRS COMPARISON: No comparisons available. Technique: 2 views obtained. Findings: The lungs are clear, no effusion. No pneumothorax. Heart is normal size. Mediastinal and hilar contours are within normal limits. Bony thorax no acute abnormality. Impression: No acute cardiopulmonary abnormality. Reviewed, dictated and finalized at location A. Impression: No acute cardiopulmonary abnormality.
--- OUTSIDE RECORDS SUMMARY | 2025-07-27 16:30 | XMS_ITS | Clinical Summary ---
Author Organization [employer] [facility] Address [address] [place] [address] Care Team Providers Care Mill Platform Supervisor Name Role Phone Matt Gastelum MD Primary Care Provider [phone] Source Comments [facility] [employer],non-owned Affiliates and Associated Physician Practices is amultiple site organization consisting of ambulatory clinics and hospital sitesin [place], [place], [place] and [place]. This disclosure is being madepursuant to the Care Everywhere program and may not contain all information available regarding this patient. Last updated 18.[employer] [facility] Allergies No known active allergies Medications * [...] fluticasone propionate (FLONASE) 50 MCG/ACT nasal spray [place] 50 sprays into each nostril 2 times [...] on file Legal Sex Male 5:13 PM DIRECTOR OF CLINICAL SERVICES Gender Identity Not on file Sexual Orientation Not on file Last Filed Vital Signs Vital Sign Reading Time Taken Comments Blood Pressure 153/107 06/05/2021 2:18 PM CDT Pulse 82 06/05/2021 2:18 PM CDT Temperature 36.3 C (97.3 F) 06/05/2021 2:18 PM CDT Respiratory Rate 18 10/24/2017 10:06 AM DIRECTOR OF CLINICAL SERVICES Oxygen Saturation 97% 06/05/2021 2:18 PM CDT [...] patient's age to complete this topic Insurance [facility] MEDICARE ADV [address] [id number] [facility] MANAGED MEDICARE [facility] MEDICAID - OUT OF STATE Care Teams Mill Platform Supervisor Relationship Specialty Start Date End Date Matt Gastelum MD [address] [place] [address] PCP - General 01/04/21
--- OUTSIDE RECORDS SUMMARY | 2025-07-27 16:30 | XMS_ITS | Clinical Summary ---
Author Organization [facility] Address [address] [place] [address] Phone Care Team Providers Care Solution Developer Name Role Phone Matt Gastelum MD Primary Care Provider [phone] Allergies No known active allergies Medications lisinopriL [...] 2019 INFLUENZA VACCINE (#1) 2025 Care Teams Solution Developer Relationship Specialty Start Date End Date Matt Gastelum MD [address] [place] [address] PCP - General Family Practice 07/12/20
--- OUTSIDE RECORDS SUMMARY | 2025-07-27 16:31 | XMS_ITS | Clinical Summary ---
Author Organization [facility] Address [facility] [place] [address] Care Team Providers Care Cloth Carrier Name Role Phone Matt Gastelum MD Primary Care Provider + [phone] Ramon Roldan MD Unavailable Unavailabl e Sunil [...] Vaccines (1 of 2) 2019 PHQ-2 (Physician [place]) 11/11/2024 COVID-19 Vaccine (2023-2 5 season) 2025 Meningococcal B Vaccine Aged Out No l onger eligible based on patient's age to complete this topic Meningococcal Vaccine Aged Out No jemima cholo eligible based on patient's age to complete this topic RSV Immunizations Under 20 Months Aged Out No longer eligible based on patient's age to complete this topic Insurance [facility] Care Teams Cloth Carrier Relationship Specialty Start Date End Date Matt Gastelum MD [address] [place] [address] PCP - General FAMILY PRACTICE 04/16/19 Ramon Roldan MD [address] [place] [address] Surgeon NEUROLOGICAL SURGERY 06/26/19 Sunil Livingston MD [address] [place] [address] GASTROENTEROLOGY 06/26/19
== END 2025-07-27 15:07 | disposition home or self-care (01) ==
PROVIDERS: PCP Family Medicine; Visit Provider Nurse Practitioner Family
DX: R05.9 Cough, unspecified (principal); R06.02 Shortness of breath
CPT/HCPCS: 71046

== ENCOUNTER 2025-08-07 20:09 | Emergency (ER) | payer MEDICARE, MEDICAID, SELFPAY ==
--- OUTSIDE RECORDS SUMMARY | 2025-08-07 20:12 | XMS_ITS | Clinical Summary ---
Author Organization [facility] Address [address] [place] [address] Phone Care Team Providers Care Sample Grinder Name Role Phone Matt Gastelum MD Primary Care Provider [phone] Allergies No known active allergies Medications lisinopriL [...] 2019 INFLUENZA VACCINE (#1) 2025 Care Teams Sample Grinder Relationship Specialty Start Date End Date Matt Gastelum MD [address] [place] [address] PCP - General Family Practice 07/12/20
--- OUTSIDE RECORDS SUMMARY | 2025-08-07 20:12 | XMS_ITS | Clinical Summary ---
Author Organization [facility] Address [address] [place] [address] Care Team Providers Care Elementary Librarian Name Role Phone Matt Gastelum MD Primary Care Provider [phone] Source Comments [facility],non-owned Affiliates and Associated Physician Practices is amultiple site organization consisting of ambulatory clinics and hospital sitesin [place], [place], [place] and [place]. This disclosure is being madepursuant to the Care Everywhere program and may not contain all information available regarding this patient. 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 MEDICARE ADV MEDICAID - OUT OF STATE Care Teams Elementary Librarian Relationship Specialty Start Date End Date Matt Gastelum MD [address] [place] [address] PCP - General 01/04/21
--- OUTSIDE RECORDS SUMMARY | 2025-08-07 20:12 | XMS_ITS | Clinical Summary ---
Author Organization [facility] Address [facility] [address] [place] [address] Care Team Providers Care Clinical Research Analyst Name Role Phone Matt Gastelum MD Primary Care Provider [phone] Ramon Roldan MD Unavailable Unavailabl e Sunil [...] Vaccines (1 of 2) 2019 PHQ-2 (Physician [place]) 11/11/2024 COVID-19 Vaccine (2023-2 5 season) 2025 Meningococcal B Vaccine Aged Out No l onger eligible based on patient's age to complete this topic Meningococcal Vaccine Aged Out No jemima cholo eligible based on patient's age to complete this topic RSV Immunizations Under 20 Months Aged Out No longer eligible based on patient's age to complete this topic Insurance [facility] Care Teams Clinical Research Analyst Relationship Specialty Start Date End Date Matt Gastelum MD [address] [place] [address] PCP - General FAMILY PRACTICE 04/16/19 Ramon Roldan MD [address] [place] [address] Surgeon NEUROLOGICAL SURGERY 06/26/19 Sunil Livingston MD [address] [place] [address] GASTROENTEROLOGY 06/26/19
[2025-08-07 20:16] VITALS: BP 154/99; PULSE 95; RESP 20; TEMP 36.4; O2SAT 99
--- NOTE | 2025-08-07 21:12 | ED.SKABFB ---
HPI - Skin/Abscess/Foreign Bdy General Chief complaint: Skin/Abscess/Foreign Body Stated complaint: skin irritation Time Seen by Provider: 08/07/25 21:04 History of Present Illness HPI narrative: Patient is a 55-year-old male presents to the ER with complaints of bruises and scabs to his left forearm. He reports he continues to being into things, which has caused the bruising. Patient denies any significant injury to the area. He denies any numbness and tingling to his hands, recent fevers, purulent drainage from the wounds, or significant pain. Patient's chart shows he has a history alcoholism, high blood pressure, and GERD. Related Data Home Medications ?Medication ?Instructions ?Recorded ?Confirmed ?Last Taken ?Type albuterol sulfate 90 mcg/actuation 1 puff inhalation Q4H PRN 04/28/20 08/07/24 Unknown History aerosol inhaler Shortness Of Breath Or Wheezing lisinopril 10 mg tablet 40 mg PO DAILY 04/28/20 08/07/24 09/05/23 History amlodipine 5 mg tablet 10 mg PO DAILY 10/16/22 08/07/24 09/05/23 History cyclobenzaprine 10 mg tablet 10 mg PO BID 09/05/23 08/07/24 Unknown History simvastatin 20 mg tablet 20 mg PO DAILY 06/18/24 08/07/24 Unknown History Allergies Allergy/AdvReac Type Severity Reaction Status Date / Time No Known Drug Allergies Allergy Mild Unknown Verified 08/07/25 20:19 Review of Systems Review of Systems: All systems reviewed & are unremarkable except as noted in HPI and below PMFSH Past Medical History Medical History Fullness after eating Smoker Chronic GERD DEION (obstructive sleep apnea) Asthma Hypertension Anxiety Surgical History Surgical History No history of previous surgery Family History Family History Father Alcoholism Hypertension Cerebrovascular accident Heart disease Mother Hypertension Depression Heart disease Anxiety Sibling Depression Hypertension Anxiety Social History Social History Smoking packs per day: 1.5 Smoking cigarettes per day: 30.0 Years smoked: 39 Smoking pack-years: 58.50 Smoking status: Current every day smoker Tobacco type: cigarettes Alcohol intake: current Drinks per week: 40 Alcohol use details: beer Substance use type: unknown Do You Feel Safe in your Home?: Yes Lack of Transportation: No Lack of Food: Sometimes True Current Housing: I Have Housing Concerned About Future Housing: No Difficulty Paying Gas/Electric Bills: No Difficulty Paying for Meds: No Currently Unemployed: Decline to Answer Education: Grade School Difficulty w/ Childcare or Family Care: Decline to Answer Living arrangements: alone Gender identity (if verbalized by the patient): Male Spiritual care concerns: No Exam Narrative: GENERAL: Well appearing, well-nourished, non-toxic, in no acute distress. HEAD: Normocephalic, atraumatic. NECK: Supple. No adenopathy, no masses. RESPIRATORY: Airway patent, respirations nonlabored. Clear to auscultation bilaterally, no rales, rhonchi, wheezing. CARDIOVASCULAR: Regular rate and rhythm without murmurs, rubs, or gallops. Peripheral pulses 2+ and equal bilaterally. ABDOMINAL: Soft, nontender, nondistended, no hepatosplenomegaly. Normoactive BS. MUSCULOSKELETAL: Moves all extremities. Strength/ROM intact without gross deformities. SKIN: Warm, dry, normal color. No rashes. Multiple small locke angiomas to L forearm, 3-4 open areas (less than dime-sized) on arm with no purulent drainage, areas of swelling, or abnormal bleeding. NEURO: A&O X3. Speech clear. Cranial nerves II-XII intact. No ataxic movements. PSYCHIATRIC: Appropriate mood and affect. Normal interaction. Course Vital Signs Vital signs: Vital Signs Temperature 36.4 C 08/07/25 20:16 Pulse Rate 95 08/07/25 20:16 Respiratory Rate 08/07/25 20:16 Blood Pressure 154/99 H 08/07/25 20:16 Pulse Oximetry 99 08/07/25 20:16 Oxygen Delivery Room Air 08/07/25 20:16 Temperature 36.4 C 08/07/25 20:16 Pulse Rate 95 08/07/25 20:16 Respiratory Rate 20 08/07/25 20:16 Blood Pressure 154/99 H 08/07/25 20:16 Pulse Oximetry 99 08/07/25 20:16 Oxygen Delivery Room Air 08/07/25 20:16 MDM - Skin/Abscess/Foreign Bdy MDM Narrative Medical decision making narrative: Patient is a 55-year-old male presents to the ER with complaints of bruises and scabs to his left forearm. He reports he continues to being into things, which has caused the bruising. Patient denies any significant injury to the area. He denies any numbness and tingling to his hands, recent fevers, purulent drainage from the wounds, or significant pain. Patient's chart shows he has a history alcoholism, high blood pressure, and GERD. Patient Education/Shared MDM: Pt denies pain at the time of examination. It was advised that patient keep the site clean and covered. He will be given antibiotic cream to put on the site 2 to 3 times a day. Patient strongly advised to follow-up with his PCP as soon as possible. He will be discharged home with a prescription for Mupirocin. Strict return precautions provided. Patient verbalized understanding and is in agreement with plan. Vital signs stable at time of discharge. All questions answered. Differential Diagnosis Differential diagnosis: Likely abscess of skin or subcutaneous tissue, urticaria, cellulitis and contact dermatitis Discharge Plan Discharge Clinical Impression: Locke angioma Patient Disposition: Home Condition: Stable Instructions: Antibiotic Form Additional Instructions: Please return to the ER with any worsening symptoms. Follow-up with dermatology for further evaluation and treatment. You may use Mupirocin cream 2-3 times per day to prevent infection. Take all medications as prescribed, including regularly scheduled medications. Please keep the area clean and covered. Patient Language: Maltese Prescriptions: New mupirocin [Centany] 2 % ointment 1 applic topical TID Qty: 22 0RF No Action lisinopril 10 mg tablet 40 mg PO DAILY albuterol sulfate 90 mcg/actuation HFA aerosol inhaler 1 puff INHALATION Q4H PRN (Reason: Shortness Of Breath Or Wheezing) simvastatin 20 mg tablet 20 mg PO DAILY hydrocortisone [Procto-Med HC] 2.5 % cream with perineal applicator 1 applic RECTAL DAILY 7 Days Qty: 30 0RF erythromycin 5 mg/gram (0.5 %) ointment 0.5 inch EACH EYE QID Qty: 3.5 0RF cyclobenzaprine 10 mg tablet 10 mg PO BID amlodipine 5 mg tablet 10 mg PO DAILY omeprazole 20 mg capsule,delayed release(DR/EC) 20 mg PO .daily Qty: 90 1RF Follow-up/Referrals: [facility] [Other] Referral Note: dermatology Matt Gastelum MD [Primary Care Provider, Family Practice] Time of Disposition: 21:32
[2025-08-07] MEDS: MUPIROCIN 2% OINT 22 GM TUBE 1 APPLIC TOPICAL (21:45)
== END 2025-08-07 21:46 | disposition home or self-care (01) ==
PROVIDERS: Emergency Provider Registered Nurse; PCP Family Medicine
DX: D18.09 Hemangioma of other sites (principal); F17.210 Nicotine dependence, cigarettes, uncomplicated; K21.9 Gastro-esophageal reflux disease without esophagitis; G47.30 Sleep apnea, unspecified; J45.909 Unspecified asthma, uncomplicated; I10 Essential (primary) hypertension; F41.9 Anxiety disorder, unspecified
CPT/HCPCS: 99283; A9270

== ENCOUNTER 2025-08-31 22:50 | Emergency (ER) | payer MEDICARE, MEDICAID, SELFPAY ==
--- OUTSIDE RECORDS SUMMARY | 2021-03-29 09:00 | XMS_ITS | Continuity of Care Document ---
Author Organization [facility] Address [address] [place] [id number] Phone Care Team Providers Care Edi Manager Name Role Phone Julia Villa PTA Unavailable Unavailable Procedures Procedure Date Manual Therapy Therapeutic Exercise Neuromuscular Re-Ed Manual Therapy Therapeutic Exercise Neuromuscular Re-Ed Therapeutic Activities Therapeutic Exercise Therapeutic Exercise Neuromuscular Re-Ed Therapeutic Activities Therapeutic Exercise Neuromuscular Re-Ed Therapeutic Exercise Neuromuscular Re-Ed Therapeutic Activities Therapeutic Exercise Neuromuscular Re-Ed Therapeutic Activities Therapeutic Activities Therapeutic Exercise Therapeutic Activities Therapeutic Exercise Neuromuscular Re-Ed Therapeutic Activities Neuromuscular Re-Ed Therapeutic Exercise Therapeutic Activities Therapeutic Exercise Neuromuscular Re-Ed Therapeutic Activities Neuromuscular Re-Ed Therapeutic Exercise Therapeutic Activities Neuromuscular Re-Ed Therapeutic Exercise Neuromuscular Re-Ed Therapeutic Activities Therapeutic Exercise Therapeutic Activities Therapeutic Exercise Neuromuscular Re-Ed Neuromuscular Re-Ed Therapeutic Activities Therapeutic Exercise PT Evaluation Low Complexity Neuromuscular Re-Ed Therapeutic Exercise Advance Directives Directive Yes / No Effective Date File Name No Information Encounters Encounter Description Practice Location Reason(s) For Visit Diagnoses Date Provider Providers Copied on Encounter [facility], [facility] [employer] [address] [place] [address], [id number], tel:[phone] [facility] No Information 1 Daisy Dumont. . Referring Provider: Cale Santoyo, [address] [place], [place] [address], [address]. tel:[phone], [address] [place] [address] [employer] [address] [place] [address], [id number], tel:[phone] [facility] No Information 1 Scooter Noel. . Referring Provider: Cale Santoyo, [facility]0 [place], [address]. tel:[phone], [address] [place] [address] [employer] [address], [id number], tel:[phone] [facility] No Information 1 Daisy Dumont. . Referring Provider: Cale Santoyo [facility] [place], [address]. tel:[phone], [address] [place] [address] [employer] [address] [place] [address], [id number], tel:[phone] [facility] No Information Feb- 1 Vera Jacinto. . Referring Provider: Cale Santoyo [facility] [place], [address]. tel:[phone], [address] [facility] 300, [place], [place], [id number], [place] tel:[phone] [facility] No Information Feb-11 14- 1 Scooter Noel. . Referring Provider: Cale Santoyo, [address] [place], [place] [address], [address]. tel:[phone], [address] [facility] 300, [place], [place], [id number], [place] tel:[phone] [facility] No Information Feb- 2- 1 Khari Graham. . Referring Provider: Cale Santoyo, [address] [place], [place] [address], [address]. tel:[phone], [address], [id number], [place] tel:[phone] [facility] No Information Mar-3 1- 1 Atre Pranoti. . Referring Provider: Cale Santoyo, [address] [place], [place] [address], [address]. tel:[phone], [address], [id number], [place] tel:[phone] [facility] No Information Mar-3 0-202 1 Atre Pranoti. . Referring Provider: Cale Santoyo, [address] [place], [place] [address], [address]. tel:[phone], [address], [id number], [place] tel:[phone] [facility] No Information Mar-2 4- 1 Atre Pranoti. . Referring Provider: Cale Santoyo, [address] [place], [place] [address], [address]. tel:[phone], [address] [place] [employer], [id number], [place] tel:[phone] [facility] No Information Mar-2 3- 1 Vera Jacinto. . Referring Provider: Cale Santoyo, [address] [place] [address], [id number]. tel:[phone], [facility] [place] [address], [place], [place], [id number], [place] tel:[phone] [facility] No Information Mar-0 - 1 Atre Pranoti. . Referring Provider: Cale Santoyo, [address] [place] [address], [address]. tel:[phone], [address] [place] [address], [id number], [place] tel:[phone] [facility] No Information Mar-0 - 1 Atre Pranoti. . Referring Provider: Cale Santoyo, [address] [place] [address], [address]. tel:[phone], [address], [id number], [place] tel:[phone] [facility] No Information b-2 1 Atre Pranoti. . Referring Provider: Cale Santoyo, [facility]0 [place], [address]. tel:[phone], [address], [id number], [place] tel:[phone] [facility] No Information b- 1 Atre Pranoti. . Referring Provider: Cale Santoyo, [address] [place] [address], [address]. tel:[phone], [address], [id number], [place] tel:[phone] [facility] No Information Dec- 1 Atre Pranoti. . Referring Provider: Cale Santoyo, [address] [place], [address]. tel:[phone] [facility], [address] [place] [address] [employer] [address] [place] [address], [id number], tel:[phone] [facility] No Information b 0 1 Atre Pranoti. . Referring Provider: Cale Santoyo, [address] [place], [address]. tel:[phone] [facility], [address] [facility] [address] [place] [address], [id number], tel:[phone] [facility] No Information 0 1 Atre Pranoti. . Referring Provider: Cale Natanael, [address] [place], [address]. tel:[phone] Family History Family Member Type Diagnosis Age At Onset No Information Payers Payer name Insurance type Covered constitution party ID Authoriza tion(s) [place] [facility] [id number] Social History Type Description Quantity Date Captured [...]
[2025-08-31 22:51] VITALS: BP 167/103; PULSE 77; RESP 16; TEMP 36.6; O2SAT 98
--- OUTSIDE RECORDS SUMMARY | 2025-08-31 22:53 | XMS_ITS | Clinical Summary ---
Author Organization [facility] Address [address] [place] [address] Phone Care Team Providers Care Pharmaceutical Sales Name Role Phone Matt Gastelum MD Primary Care Provider [phone] Allergies No known active allergies Medications lisinopriL [...] 2019 INFLUENZA VACCINE (#1) 2025 Care Teams Pharmaceutical Sales Relationship Specialty Start Date End Date Matt Gastelum MD [address] [place] [address] PCP - General Family Practice 07/12/20
--- OUTSIDE RECORDS SUMMARY | 2025-08-31 22:53 | XMS_ITS | Clinical Summary ---
Author Organization [facility] Address [facility] [place] [address] Care Team Providers Care Motor Coach Operator Name Role Phone Matt Gastelum MD Primary Care Provider + [phone] Ramon Roldan MD Unavailable Unavailabl e Sunil [...] Vaccines (1 of 2) 2019 PHQ-2 (Physician [place]) 11/11/2024 COVID-19 Vaccine ( - 2024-2 6 season) 2025 Influenza Adult (#1) 2025 Hepatitis A Vaccines Aged Out No long er eligible based on patient's age to complete this topic Meningococcal B Vaccine Aged Out No l onger eligible based on patient's age to complete this topic Meningococcal Vaccine Aged Out No jemima cholo eligible based on patient's age to complete this topic RSV Immunizations Under 20 Months Aged Out No longer eligible based on patient's age to complete this topic Insurance [employer] MEDICARE Care Teams Motor Coach Operator Relationship Specialty Start Date End Date Matt Gastelum MD [address] [place] [address] PCP - General FAMILY PRACTICE 04/16/19 Ramon Roldan MD [address] [place] [address] Surgeon NEUROLOGICAL SURGERY 06/26/19 Sunil Livingston MD [address] [place] [address] GASTROENTEROLOGY 06/26/19
--- OUTSIDE RECORDS SUMMARY | 2025-08-31 22:53 | XMS_ITS | Clinical Summary ---
Author Organization [facility] Address [address] [place] [address] Care Team Providers Care Horse Doctor Name Role Phone Matt Gastelum MD Primary Care Provider [phone] Source Comments [facility],non-owned Affiliates and Associated Physician Practices is amultiple site organization consisting of ambulatory clinics and hospital sitesin [place], [place], [place] and [place]. This disclosure is being madepursuant to the Care Everywhere program and may not contain all information available regarding this patient. 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 Gender Identity Not on file Sexual Orientation Not on file Last Filed Vital Signs Vital Sign Reading Time Taken Comments Blood Pressure 153/107 06/05/2021 2:18 PM CDT Pulse 82 06/05/2021 2:18 PM CDT Temperature 36.3 C (97.3 F) 06/05/2021 2:18 PM CDT Respiratory Rate 18 10/24/2017 10:06 AM PRESIDENT EDUCATIONAL INSTITUTION Oxygen Saturation 97% 06/05/2021 2:18 PM CDT [...] patient's age to complete this topic Insurance [facility] MEDICARE ADV [address] [id number] [facility] MANAGED MEDICARE [facility] MEDICAID - OUT OF STATE Care Teams Horse Doctor Relationship Specialty Start Date End Date Matt Gastelum MD [address] [place] [address] PCP - General 01/04/21
--- NOTE | 2025-08-31 22:58 | PC.NURSE ---
Pt. requested that his son Perez Elkins be called. This RN attempted to call Perez using number on file. No answer.
--- NOTE | 2025-09-01 00:42 | PC.NURSE ---
CALLED PT TO COME BACK TO MAIN ED - NO ANSWER.
[2025-09-01 01:22] VITALS: BP 130/80; PULSE 69; RESP 18; O2SAT 97
--- NOTE | 2025-09-01 01:54 | ED.RECABL ---
HPI - Recheck/Abnormal Lab/Rx General Chief Complaint: Recheck/Abnormal Lab/Rx Stated Complaint: htn, etoh Time Seen by Provider: 09/01/25 01:49 History of Present Illness HPI narrative: 55-year-old male with past medical history including hypertension and alcohol abuse. Presents to the emergency department for concerns of elevated blood pressure readings at home. States he is not taking his lisinopril at home for several days as he has been ?on a Loew.?States that he has been drinking some alcohol. Clinically not intoxicated and overall well-appearing. He has no complaints during my evaluation states he would just like to go home at this time. Denies any symptoms. No headache, chest pain, shortness a breath, weakness, loss of consciousness. He is awake and answering all my questions appropriately. Does not appear clinically intoxicated. Hemodynamically stable with normal vital signs. Asking us to call his son to get him as he left his phone at home. Related Data Home Medications ?Medication ?Instructions ?Recorded ?Confirmed ?Last Taken ?Type albuterol sulfate 90 mcg/actuation 1 puff inhalation Q4H PRN 04/28/20 08/07/24 Unknown History aerosol inhaler Shortness Of Breath Or Wheezing lisinopril 10 mg tablet 40 mg PO DAILY 04/28/20 08/07/24 09/05/23 History amlodipine 5 mg tablet 10 mg PO DAILY 10/16/22 08/07/24 09/05/23 History cyclobenzaprine 10 mg tablet 10 mg PO BID 09/05/23 08/07/24 Unknown History simvastatin 20 mg tablet 20 mg PO DAILY 06/18/24 08/07/24 Unknown History Allergies Allergy/AdvReac Type Severity Reaction Status Date / Time No Known Drug Allergies Allergy Mild Unknown Verified 09/01/25 01:24 Review of Systems Review of Systems: [facility] Past Medical History Medical History Fullness after eating Smoker Chronic GERD DEION (obstructive sleep apnea) Asthma Hypertension Anxiety Surgical History Surgical History No history of previous surgery Family History Family History Father Alcoholism Hypertension Cerebrovascular accident Heart disease Mother Hypertension Depression Heart disease Anxiety Sibling Depression Hypertension Anxiety Social History Social History Smoking packs per day: 1.5 Smoking cigarettes per day: 30.0 Years smoked: 39 Smoking pack-years: 58.50 Smoking status: Current every day smoker Tobacco type: cigarettes Alcohol intake: current Drinks per week: 40 Alcohol use details: beer Substance use type: unknown Do You Feel Safe in your Home?: Yes Lack of Transportation: No Lack of Food: Sometimes True Current Housing: I Have Housing Concerned About Future Housing: No Difficulty Paying Gas/Electric Bills: No Difficulty Paying for Meds: No Currently Unemployed: Decline to Answer Education: Grade School Difficulty w/ Childcare or Family Care: Decline to Answer Living arrangements: alone Gender identity (if verbalized by the patient): Male Spiritual care concerns: No Exam Narrative: GENERAL: [Well-appearing, well-nourished, and in no acute distress.] HEAD: [Normocephalic, atraumatic.] EYES: [PERRLA and EOMI.] ENT: Nares clear, no rhinorrhea or epistaxis. Mucous membranes moist. NECK: Supple. CHEST: [Clear to auscultation. No respiratory distress.] HEART: [Regular rate and rhythm]. No murmur heard. [Normal peripheral pulses.] ABDOMEN: [Soft, nondistended], [nontender], [No rigidity or guarding] EXTREMITIES: Normal range of motion. [No edema.] SKIN: Warm, dry, no rash. NEURO: [No focal deficits]. Alert and oriented [x3.] PSYCH: [Normal mood and affect.] Course Vital Signs Vital signs: Vital Signs Temperature 36.6 C 08/31/25 22:51 Pulse Rate 77 08/31/25 22:51 Respiratory Rate 16 08/31/25 22:51 Blood Pressure 167/103 H 08/31/25 22:51 Pulse Oximetry 98 08/31/25 22:51 Oxygen Delivery Room Air 08/31/25 22:51 Temperature 36.6 C 08/31/25 22:51 Pulse Rate 69 09/01/25 01:22 Respiratory Rate 18 09/01/25 01:22 Blood Pressure 130/80 09/01/25 01:22 Pulse Oximetry 97 09/01/25 01:22 Oxygen Delivery Room Air 08/31/25 22:51 MDM - Recheck/Abnormal Lab/Rx MDM Narrative Medical decision making narrative: 55-year-old male with past medical history including hypertension and alcohol abuse. Presents to the emergency department for concerns of elevated blood pressure readings at home. States he is not taking his lisinopril at home for several days as he has been ?on a Lowe.?States that he has been drinking some alcohol. Clinically not intoxicated and overall well-appearing. He has no complaints during my evaluation states he would just like to go home at this time. Denies any symptoms. No headache, chest pain, shortness a breath, weakness, loss of consciousness. He is awake and answering all my questions appropriately. Does not appear clinically intoxicated. Hemodynamically stable with normal vital signs. Asking us to call his son to get him as he left his phone at home. Patient has no complaints and a benign physical exam with normal vitals. Expressing desire to go home. No workup needed at this time as he is asymptomatic. Has blood pressure medicines at home and safe for discharge with close PCP follow-up. Given return precautions. Medical Records Attestation: I reviewed the patient's medical records. Discharge Plan Discharge Clinical Impression: Asymptomatic hypertension Patient Disposition: Home Condition: Stable Instructions: Antibiotic Form, Chronic Hypertension (DC) Additional Instructions: Your blood pressure is normal here 130/80. Return with any emergent concerns otherwise follow-up with regular doctor. Return with any symptoms such as crushing chest pain, difficulty breathing, losing consciousness, unilateral weakness or any other issues. Refrain from significant alcohol drinking and take blood pressure medicines as prescribed. Patient Language: Malian Prescriptions: No Action lisinopril 10 mg tablet 40 mg PO DAILY albuterol sulfate 90 mcg/actuation HFA aerosol inhaler 1 puff INHALATION Q4H PRN (Reason: Shortness Of Breath Or Wheezing) simvastatin 20 mg tablet 20 mg PO DAILY hydrocortisone [Procto-Med HC] 2.5 % cream with perineal applicator 1 applic RECTAL DAILY 7 Days Qty: 30 0RF erythromycin 5 mg/gram (0.5 %) ointment 0.5 inch EACH EYE QID Qty: 3.5 0RF mupirocin [Centany] 2 % ointment 1 applic topical TID Qty: 22 0RF cyclobenzaprine 10 mg tablet 10 mg PO BID amlodipine 5 mg tablet 10 mg PO DAILY omeprazole 20 mg capsule,delayed release(DR/EC) 20 mg PO .daily Qty: 90 1RF Follow-up/Referrals: Matt Gastelum MD [Primary Care Provider, Family Practice]
--- OUTSIDE RECORDS SUMMARY | 2025-09-01 02:16 | XMS_ITS | Clinical Summary ---
Author Organization [facility] Address [address] [place] [address] Care Team Providers Care Raw Material Planner Name Role Phone Matt Gastelum MD Primary Care Provider [phone] Source Comments [facility],non-owned Affiliates and Associated Physician Practices is amultiple site organization consisting of ambulatory clinics and hospital sitesin [place], [place], [place] and [place]. This disclosure is being madepursuant to the Care Everywhere program and may not contain all information available regarding this patient. 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 Gender Identity Not on file Sexual Orientation Not on file Last Filed Vital Signs Vital Sign Reading Time Taken Comments Blood Pressure 153/107 06/05/2021 2:18 PM CDT Pulse 82 06/05/2021 2:18 PM CDT Temperature 36.3 C (97.3 F) 06/05/2021 2:18 PM CDT Respiratory Rate 18 10/24/2017 10:06 AM FIELD INSTALLATION TECHNICIAN Oxygen Saturation 97% 06/05/2021 2:18 PM CDT [...] patient's age to complete this topic Insurance [facility] MEDICARE ADV MEDICAID - OUT OF STATE Care Teams Raw Material Planner Relationship Specialty Start Date End Date Matt Gastelum MD [address] [place] [address] PCP - General 01/04/21
--- OUTSIDE RECORDS SUMMARY | 2025-09-01 02:16 | XMS_ITS | Data Portability ---
Author Organization [facility] Address [address] [place] [address] Care Team Providers Care Optomechanical Engineer Name Role Phone CHRIS EARL Primary Care Provider Assessment No assessment recorded. Plan of Treatment Reminders Order Date Submit Date Provider Last Modified By Organization Details Last Modified Time Details Appointments None recorded. Lab CMP, serum or plasma 2017 018 [facility], [address] [facility], [address], [place], [address], 8 06:19:40 Referral gastroente rologist referral - Please call patient to schedule appt. Venkat 2017 018 florentino Liu MD, [address] [facility] [address], [place], [address], 8 08:39:13 neurologis t referral - Please call patient to schedule appt. Thank you 2017 018 florentino Fermin MD PHD, [address], [address], [place], [address], 8 11:26:40 sleep medicine referral - Please call patient to schedule appt. Thank you [email or web address] [facility], [address] [facility], [address], [place], [address], 8 17:28:02 Procedures None recorded. Surgeries None recorded. Imaging US, chuck shen 2017 018 [facility] ([facility]), [address] [place], [address], 8 17:10:23 MRI, lumbar spine, w/o contrast [address] [facility], [address], [place], [address], 8 12:22:47 MRI, cervical spine, w/o contrast [address] [facility], [address], [place], [address], 8 12:22:47 FL, modified barium swallow study 2017 [facility] ([facility] Sched[facility]), [address] [place], [address], 8 13:48:10 Medication Orders Augmentin 500 mg-125 mg tablet 2017 018 [facility] [address] [facility], [address] [place], [address], 8 11:26:14 fluticason e propionate 50 mcg/actuat ion nasal spray,susp ension 2017 018 INTERFACE Not available 8 16:18:39 Ensure Active Protein-Mu scle oral liquid 2017 018 INTERFACE Not available 8 16:16:39 Patient TargetsNo targets recorded. Patient Instructions Encounter Date Encounter Id Patient Instructions Last Modified By Organization Details Last Modified Time 11/15/2017 [id number] Quitting Tobacco : Care Instructions [facility] Not available 11/15/2017 16:16:24 chronic obstructive pulmonary disease (COPD): care instructions [facility] Not available 11/15/2017 16:16:24 learning about copd and how to prevent lung infections [facility] Not available 11/15/2017 16:16:24 snoring: care instructions [facility] Not available 11/15/2017 16:16:24 07/10/2018 [id number] allergies: care instructions [facility] Not available 07/10/2018 16:18:03 managing your allergies: care instructions [facility] Not available 07/10/2018 16:18:03 07/23/2018 [id number] influenza (flu) vaccine: care instructions [facility] Not available 07/23/2018 13:05:34 09/29/2018 [id number] cervical spinal stenosis: care instructions [facility] Not available 09/29/2018 17:04:27 10/16/2018 [id number] Quitting Tobacco : Care Instructions [facility] Not available 10/16/2018 16:31:02 Acute Sinusitis: Care Instructions [facility] Not available 10/16/2018 16:31:01 chronic obstructive pulmonary disease (COPD): care instructions [facility] Not available 10/16/2018 16:31:02 learning about copd and how to prevent lung infections [facility] Not available 10/16/2018 16:31:02 Reason for Referral Please call patient to [facility] appt. Thank you Referring Physician: Chris Earl, Internal Medicine, Encounter Date: 11/15/2017 Neurologist Referral for Lum bar radiculopathy Please call patient to schedule appt. Thank you Referring Physician: Chris Earl Internal Medicine, Encounter Date: 07/10/2018 Coil Builder Referral for Painless rectal bleeding Please call patient to schedule appt. Thankyou Referring Physician: Chris Earl Internal Medicine, Encounter Date: 10/16/2018 Results Created Date Observation Date Name Description Value Unit Range Abnormal Flag Note LastModifiedBy Organization Detail LastModifiedTime 12/11/19 18 12/12/2017 CMP, serum or plasm a glucose, serum 78 mg/dL 65-99 Not Available [facility] ([facility]) [address] [place], [address], 12/12/2017 06:19:40 12/11/19 18 12/12/2017 CMP, serum or plasm a BUN 8 mg/dL 6-24 Not Available [facility] ([facility]) [address] [place], [address], 12/12/2017 06:19:40 12/11/19 18 12/12/2017 CMP, serum or plasm a creatinine, serum 0.82 mg/dL 0.76-1 .27 Not Available [facility] ([facility]) [address] [place], [address], 12/12/2017 06:19:40 12/11/19 18 12/12/2017 CMP, serum or plasm a eGFR if nonafricn AM 105 mL/mi n/1.7 3 >59 Not Available [facility] ([facility]) [address] [place], [address], 12/12/2017 06:19:40 12/11/19 18 12/12/2017 CMP, serum or plasm a eGFR if africn AM 121 mL/mi n/1.7 3 >59 Not Available [facility] ([facility]) [address] [place], [address], 12/12/2017 06:19:40 12/11/19 18 12/12/2017 CMP, serum or plasm a BUN/creatini ne ratio 10 9-20 Not Available [facility] ([facility]) [address] [place], [address], 12/12/2017 06:19:40 12/11/19 18 12/12/2017 CMP, serum or plasm a sodium, serum 144 mmol/ L 134-14 4 Not Available [facility] ([facility]) [address] [place], [address], 12/12/2017 06:19:40 12/11/19 18 12/12/2017 CMP, serum or plasm a potassium, serum 4.7 mmol/ L 3.5-5. 2 Not Available [facility] ([facility]) [address] [place] [address], [address], 12/12/2017 06:19:40 12/11/19 18 12/12/2017 CMP, serum or plasm a chloride, serum 100 mmol/ L 96-106 Not Available [facility] ([facility]) [address] [facility] [place], [address], 12/12/2017 06:19:40 12/11/19 18 12/12/2017 CMP, serum or plasm a carbon dioxide, total 27 mmol/ L 18-29 Not Available [facility] ([facility]) [address] [facility] [place], [address], 12/12/2017 06:19:40 12/11/19 18 12/12/2017 CMP, serum or plasm a calcium, serum 9.9 mg/dL 8.7-10 .2 Not Available [facility] ([facility]) [address] [facility] [place], [address], 12/12/2017 06:19:40 12/11/19 18 12/12/2017 CMP, serum or plasm a protein, total, serum 7.1 g/dL 6.0-8. 5 Not Available [facility] ([facility]) [address] [place], [address], 12/12/2017 06:19:40 12/11/1912/12/2017 CMP, serum or plasm a albumin, serum 4.5 g/dL 3.5-5. 5 Not Available [facility] ([facility]) [address] [place], [address], 12/12/2017 06:19:40 12/11/1912/12/2017 CMP, serum or plasm a globulin, total 2.6 g/dL 1.5-4. 5 Not Available [facility] ([facility]) [address] [facility] [place], [address], 12/12/2017 06:19:40 12/11/1912/12/2017 CMP, serum or plasm a A/G ratio 1.7 1.2-2. 2 Not Available [facility] ([facility]) [address] [place], [address], 12/12/2017 06:19:40 12/11/19 18 12/12/2017 CMP, serum or plasm a bilirubin, total 0.4 mg/dL 0.0-1. 2 Not Available [facility] ([facility]) [address] [facility], [place], [address], 12/12/2017 06:19:40 12/11/19 18 12/12/2017 CMP, serum or plasm a alkaline phosphatase, S 73 IU/L 39-117 Not Available [facility] ([facility]) [address] [facility], [place], [address], 12/12/2017 06:19:40 12/11/19 18 12/12/2017 CMP, serum or plasm a AST (SGOT) 19 IU/L 0-40 Not Available [facility] ([facility]) [address] [facility], [place], [address], 12/12/2017 06:19:40 12/11/19 18 12/12/2017 CMP, serum or plasm a ALT (SGPT) 13 IU/L 0-44 Not Available [facility] ([facility]) [address] [facility], [place], [address], 12/12/2017 06:19:40 12/18/19 18 08/28/2017 XR, chest , 2 view No observ ation record ed. [facility] Not Available 2017 16:56:18 12/18/19 18 08/28/2017 CT, neck, soft tissu e, w/ contr ast No observ ation record ed. [facility] Not Available 2017 16:56:18 07/16/20 18 07/16/2018 FL, modif ied ivan esquivel ow study No observ ation record ed. [facility] (Imaging) [address] [place], [address], 07/16/2018 18:12:50 08/20/20 18 08/18/2017 CT, abdom en + pelvi s, w/o contr ast No observ ation record ed. [facility] Not Available 2017 16:48:37 10/01/20 18 09/30/2018 MRI, lumba r spine , w/o contr ast No observ ation record ed. [email or web address] [facility] [address], [place], [address], 10/10/2018 09:38:44 10/01/20 18 09/30/2018 MRI, cervi jenn spine , w/o contr ast No observ ation record ed. [email or web address] [facility] [address], [place], [address], 10/10/2018 09:38:45 01/02/20 19 01/02/2019 CT, maxil loaleidac ial, w/o contr ast No observ ation record ed. [address] (Imaging) [address] [place], [address], 01/02/2019 17:29:34 02/04/20 19 02/03/2019 XR, cervi jenn spine No observ ation record ed. [address], [place], [address], 02/03/2019 17:21:30 11/17/19 21 11/16/2020 XR, ribs, unila teral No observ ation record ed. [facility] [address] [place], [address], 11/17/2020 12:02:34 07/21/20 21 07/20/2021 XR, chest No observ ation record ed. [facility] ([facility] Sched[facility]) [address] [place], [address], 07/21/2021 12:07:59 Result Notes None recorded. Problems Name Problem SNOMED Code Status Onset Date Resolution Date Notes Provider Name and Address Organization Details Recorded Time Acute sinusitis 95912803 Active Danika Ramirez RN null, [place] - [place] 4 14:35:11 Chronic obstructive pulmonary disease 24585735 Active Danika Ramirez RN null, [place] - [place] 4 14:35:11 Tobacco dependence syndrome 32099779 Active Danika Ramirez RN null, [place] - [...] e 50 mcg/actua tion nasal spray,[employer] [place] 1 spray every day by intranas al [...] 73 /min 116/76 mm[Hg] Ermias Briceño MA [facility] SI 8 15:27:44 Date Recorded Body height Body mass index (BMI) Body weight Body temperature Oxygen saturation Oxygen saturation in Arterial blood by Pulse oximetry Heart rate Systolic And Diastolic Provider Name and Address Organization Details Last Updated DateTime 8 183.52 cm 20.2 kg/m2 55589.8 6 g 97.8 [degF] 100 % 100 % 62 /min 110/74 mm[Hg] Ermias Briceño MA [facility] 8 15:35:43 Date Recorded Body height Body mass index (BMI) Body weight Body temperature Oxygen saturation Oxygen saturation in Arterial blood by Pulse oximetry Heart rate Systolic And Diastolic Provider Name and Address Organization Details Last Updated DateTime 8 183.52 cm 20.1 kg/m2 28476.2 6 g 98.1 [degF] 98 % 98 % 61 /min 110/70 mm[Hg] Ermias Briceño MA [facility] 8 12:38:52 Date Recorded Body height Body mass index (BMI) Body weight Body temperature Oxygen saturation Oxygen saturation in Arterial blood by Pulse oximetry Heart rate Systolic And Diastolic Provider Name and Address Organization Details Last Updated DateTime 8 183.52 cm 19.9 kg/m2 95890.6 7 g 97.8 [degF] 98 % 98 % 70 /min 118/74 mm[Hg] Ermias Briceño MA [facility] 8 16:22:53 Date Recorded Body height Body mass index (BMI) Body weight Body temperature Oxygen saturation Oxygen saturation in Arterial blood by Pulse oximetry Heart rate Systolic And Diastolic Provider Name and Address Organization Details Last Updated DateTime 8 183.52 cm 20.1 kg/m2 68726.7 g 98.3 [degF] 100 % 100 % 72 /min 124/84 mm[Hg] Ermias Briceño MA [facility] 8 15:52:28 Social History None recorded. Functional Status None recorded. Mental Status None recorded. Family History Nothing Reported. Medical History Condition Response Coronary Artery Disease N Other N Atrial Fibrillation N High Blood Pressure N Thyroid Problems N Kidney or Bladder Problems N Depression N COPD N Blood Clots N GI Problems N Skin Problems N Anemia N Heart Attack (TN) N Diabetes N Anxiety Disorder N Muscle, Joint, or Bone Problems N Seizures/Epilepsy N Acid Reflux (GERD) N Cancer N Stroke N Allergies N Asthma N High Cholesterol N Hepatitis N Liver Disease N Headaches N Osteoporosis N Heart Failure N Immunizations Vaccine Type Date Status Note Provider Nam e and Address Organization Details Recorded Time COVID-19, mRNA, LNP-S, PF, 30 mcg/0.3 mL dose completed Not Available [facility] 07/26/2021 06:01:46 Influenza, split virus, quadrivalent, preservative 7 completed Not Available [facility] 11/28/2019 02:34:47 Influenza, split virus, quadrivalent, PF 8 completed Not Available [facility] 11/28/2019 02:43:42 Past Encounters Encounter ID Performer Location Encounter Start Date Encounter Closed Date Diagnosis/Indication Diagnosis SNOMED-CT Code Diagnosis ICD10 Code Diagnosis IMO Codes Diagnosis Note [id number] MD Sofia Henao (Adult Med) [address] [place] [address] [phone] 10/26/2014 13:20:31 10/26/2014 17:43:42 Acute sinusitis 26604789 Chronic ob structive pulmonary disease 18532734 Tobacco de pendence syndrome 00487764 Adult [facility] th examination 022419103 [id number] MD Sofia Henao (Adult Med) [address] [place] [address] [phone] 01/08/2017 15:09:50 01/08/2017 16:24:41 Chronic obstructive pulmonary disease 20787529 J44.9 Tobacco de pendence syndrome 59307772 F17.061 [id number] [facility] [address] [place] [address] [phone] 0 02/05/2017 14:52:56 02/05/2017 18:07:45 Acute stress disorder 45188908 F43.0 BP re-checked later with larger cuff in sitting position on left arm the reading is 150/80 mmhg. Tobacco de pendence syndrome 65613030 F17.459 [id number] MD Sofia Henao (Adult Med) [address] [place] [address] [phone] 0 05/20/2017 12:18:57 05/20/2017 13:40:27 Dysphagia 43513336 R13.10 Feeling some thing in the throat which makes him hard to swallowing solid food but no visible lesion in inspection in this office, no neck llymphaden opathy. [id number] MD Sofia Henao (Adult Med) [address] [place] [address] [id number] 0 07/29/2017 12:02:47 07/29/2017 13:29:04 Dysphagia 05918213 R13.10 Feeling some thing in the throat which makes him hard to swallowing solid food but no visible lesion in inspection in this office, no neck llymphaden opathy. Chronic ob structive pulmonary disease 49706186 J44.9 Tobacco de pendence syndrome 57192532 F17.290 Used to smoke 1-2 pk/day since age of 14. [id number] MD Sofia Henao (Adult Med) [address] [place] [address] [phone] 0 09/03/2017 13:15:34 09/04/2017 13:26:30 Chronic neck pain 0430747197 107 M54.2 Esophageal dysphagia 408 42403 R13.19 weight loss, needs nutritonal supplement . [id number] MD Sofia Henao (Adult Med) [address] [place] [address] [phone] 0 09/30/2017 14:42:30 09/30/2017 17:20:47 Abnormal weight loss 610183340 R63.4 Chronic ob structive pulmonary disease 50584668 J44.9 Nicotine dependence 5629 4008 F17.200 History of thyroid disorder 784069009 Z86.39 Administra tion of influenza vaccine 91193403 Z23 He tolerated shot well. Chronic anxiety 43638675 9 F41.9 Chronic neck pain 172691 0736 107 M54.2 Will go to [facility]. Acid reflux 328838179 K2 1.9 [id number] MD Sofia Henao (Adult Med) [address] [place] [address] [id number] 11/15/2017 15:01:43 11/15/2017 16:34:23 Pharyngeal dryness 698728263 J39.2 Has been evaluated by ENT. Garlandaine d weight loss 051205642 R63.4 Nicotine dependence 5629 4008 F17.200 Chronic ob structive pulmonary disease 97469731 J44.9 Snoring symptoms 9915492 00 R06.83 Weakness present 8656085 07 M62.81 [id number] MD Sofia Henao (Adult Med) [address] [place] [address] [phone] 0 07/10/2018 14:52:45 07/10/2018 16:57:33 Pharyngeal dysphagia 1036548917 9105 R13.13 Chronic neck pain 068822 9147 107 M54.2 Will go to [facility]. Lumbar radiculopathy 128 325500 M54.16 From previous injury. Esophageal dysphagia 408 91940 R13.19 weight loss, needs nutritonal supplement . Allergic rhinitis 056089 04 J30.9 He is going to contact previous ENT Dr. alford again regarding to his nose issue. [id number] MD [facility] [address] [place] [address] [phone] 0 07/23/2018 12:13:45 07/24/2018 10:31:30 Administration of influenza vaccine 48356333 Z23 He tolerated shot well. Esophageal dysphagia 408 15209 R13.19 weight loss, needs nutritonal supplement . Abnormal modified barium swallowing . He has gained weight, MBS reported narrow at C5-6 level, copy of report provided to patient , will fax to his GI specialist at [facility] as his request today, 07-23-[address] Isabell Livingston. [id number] Chris Earl MD [facility] (Adult Med) [address] [place] [address] [phone] 0 09/29/2018 15:58:39 09/30/2018 11:37:13 Spinal stenosis in cervical region 10374679 M48.02 REQUIRE OPEN mri Lumbar radiculopathy 128 230869 M54.16 From previous injury.REQ UIRE OPEN MRI. [id number] [facility] [address] [place] [address] [phone] 10/16/2018 15:36:07 10/17/2018 09:58:00 Painless rectal bleeding 337695352 K62.5 Cervical radiculopathy 72297628 M54.12 He has disc film and copies of report, awaiting the appointmen t of neurosurge ry referral. Lumbosacra l radiculopathy 9448899 M54.17 He has disc film and copy of report, awaiting for the appointmen t of neurosurge ry referral. Acute sinusitis 12244714 J01.90 Chronic ob structive pulmonary disease 83031808 J44.9 Nicotine dependence 5629 4008 F17.200 Gallstone 240275850 K80. 20 Health Concerns Section Related Observation LastModified by Organization Detai ls LastModified Time None Recorded Concern Status LastModified by Organization Details LastModified Time None Recorded Advance Directives Directive None Recorded Payers Insurance Date Sequence Insurance Name Policy Number Policy Waggoner Covered Member ID Waggoner Member ID Guarantor Name 01/08/2017 1 [facility] (MEDICAID HMO) Ernesto Will [id number] Ernesto Solis 11/25/2018 1 [facility] - DOS PRIOR TO 2021 (MEDICAID REPLACEMENT - HMO) Ernesto Solis [id number] Ernesto Solis 05/22/2017 2 [place] [employer] Ernesto Solis [id number] Ernesto Solis Notes Date Note Type Note Provider Name and Address Organization Details Recorded Time 11/15/2017 text/html He did not slate picker the lorazepam, on ensure, smokes cigarettes. He had been evaluated by ENT and GI with EGD scope, chronic neck and back and whole body pain, will see a neurologist in the near future. Weight still not coming up. Chris Earl MD Attn: Accounting[address] [place], [address], [facility] 11/15/2017 16:32:00 07/10/2018 text/html ROS as noted in the HPI 1. History of pharyngeal dysphagia, had dilatation done in [facility], certain food just can not be consumed. like steak /hamburger due to swalloing issue, on ensure supplement. Has not had modified barium swallowing test yet.2. Chronic back and neck pain from previous injury, not a candidate for operation , wants neurology referral at this side [facility]. 3. Nicotine dependence, has no intention of quitting. NKDA. Chris Earl MD Attn: Accounting[address] [place], [address], [facility] 07/10/2018 16:21:22 09/29/2018 text/html ROS as noted in the HPI Cervical spine stenosis, and lower back radiculopathy. Asking for the MRI of cervical spine and lumbAR SPINE. Chris Earl MD Attn: Accounting[address] [place], [address], [facility] 09/29/2018 17:09:23 10/16/2018 text/html ROS as noted in the HPI Spinal stenosis on C-spine and lumbar spine stenosis with radiculopathy, will see a neurosurgeon, also has sinus congestion, a smoker, off and on pain less rectal bleeding. NKDA. Chris Earl MD Attn: Accounting[address] [facility], [place], [address], [facility] 10/16/2018 16:31:46
--- OUTSIDE RECORDS SUMMARY | 2025-09-01 02:16 | XMS_ITS | Clinical Summary ---
Author Organization [facility] Address [address] [facility] [place] [address] Phone Care Team Providers Care Ornamental Metal Erector Apprentice Name Role Phone Matt Gastelum MD Primary Care Provider [phone] Allergies No known active allergies Medications lisinopriL [...] 2019 INFLUENZA VACCINE (#1) 2025 Care Teams Ornamental Metal Erector Apprentice Relationship Specialty Start Date End Date Matt Gastelum MD [address] [place] [address] PCP - General Family Practice 07/12/20
--- OUTSIDE RECORDS SUMMARY | 2025-09-01 02:16 | XMS_ITS | Clinical Summary ---
Author Organization [facility] Address [facility] [place] [address] Care Team Providers Care Loss Control Representative Name Role Phone Matt Gastelum MD Primary Care Provider + [phone] Ramon Roldan MD Unavailable Unavailabl e Sunil [...] Vaccines (1 of 2) 2019 PHQ-2 (Physician [place]) 11/11/2024 COVID-19 Vaccine ( - 2024-2 6 [...] patient's age to complete this topic Insurance [employer] MEDICARE Care Teams Loss Control Representative Relationship Specialty Start Date End Date Matt Gastelum MD [address] [place] [address] PCP - General FAMILY PRACTICE 04/16/19 Ramon Roldan MD [address] [place] [address] Surgeon NEUROLOGICAL SURGERY 06/26/19 Sunil Livingston MD [address] [place] [address] GASTROENTEROLOGY 06/26/19
== END 2025-09-01 02:28 | disposition home or self-care (01) ==
LOC: ANHED 09-01 02:13
PROVIDERS: Emergency Provider Student in an Organized Health Care Education/Training Program; PCP Family Medicine
DX: I10 Essential (primary) hypertension (principal); T46.4X6A Underdosing of angiotensin-converting-enzyme inhibitors, initial encounter; Z91.128 Patient's intentional underdosing of medication regimen for other reason; J45.909 Unspecified asthma, uncomplicated; K21.9 Gastro-esophageal reflux disease without esophagitis; G47.33 Obstructive sleep apnea (adult) (pediatric); F41.9 Anxiety disorder, unspecified; F10.10 Alcohol abuse, uncomplicated; Y90.9 Presence of alcohol in blood, level not specified; F17.210 Nicotine dependence, cigarettes, uncomplicated
CPT/HCPCS: 99281

== ENCOUNTER 2025-09-20 22:18 | Emergency (ER) | payer MEDICARE, MEDICAID, SELFPAY ==
--- OUTSIDE RECORDS SUMMARY | 2021-03-29 08:00 | XMS_ITS | Continuity of Care Document ---
Author Organization [employer] Address [address] [place] [phone] Phone Care Team Providers Care Feed Mill Tender Name Role Phone Julia Villa PTA Unavailable Unavailable Procedures Procedure Date Neuromuscular Re-Ed Manual Therapy Therapeutic Exercise Therapeutic Exercise Manual Therapy Neuromuscular Re-Ed Therapeutic Activities Therapeutic Exercise Neuromuscular Re-Ed Therapeutic Exercise Therapeutic Activities Therapeutic Exercise Neuromuscular Re-Ed Therapeutic Activities Neuromuscular Re-Ed Therapeutic Exercise Neuromuscular Re-Ed Therapeutic Activities Therapeutic Exercise Therapeutic Activities Therapeutic Exercise Therapeutic Activities Therapeutic Exercise Neuromuscular Re-Ed Neuromuscular Re-Ed Therapeutic Activities Therapeutic Exercise Therapeutic Activities Neuromuscular Re-Ed Therapeutic Exercise Neuromuscular Re-Ed Therapeutic Exercise Therapeutic Activities Therapeutic Activities Neuromuscular Re-Ed Therapeutic Exercise Neuromuscular Re-Ed Therapeutic Activities Therapeutic Exercise Therapeutic Activities Neuromuscular Re-Ed Therapeutic Exercise Therapeutic Activities Therapeutic Exercise Neuromuscular Re-Ed Neuromuscular Re-Ed PT Evaluation Low Complexity Therapeutic Exercise Advance Directives Directive Yes / No Effective Date File Name No Information Encounters Encounter Description Practice Location Reason(s) For Visit Diagnoses Date Provider Providers Copied on Encounter [employer], [facility] [employer] [address] [place] [address], [id number], tel:[phone] [facility] No Information 1 Daisy Dumont. . Referring Provider: Cale Santoyo, [address] [place], [place] [address], [address]. tel:[phone], [address] [place] [address] [place] [address], [id number], tel:[phone] [facility] No Information 1 Scooter Noel. . Referring Provider: Cale Santoyo, [facility] [place], [address]. tel:[phone], [address] [place] [address], [id number], tel:[phone] [facility] No Information 1 Daisy Dumont. . Referring Provider: Cale Santoyo [facility] [place], [address]. tel:[phone], [address] [place] [address] [place] [address], [id number], tel:[phone] [facility] No Information Feb- 1 Vera Jacinto. . Referring Provider: Cale Santoyo [facility] [place], [address]. tel:[phone], [address] [facility] 300, [place], [place], [id number], [place] tel:[phone] [facility] No Information Feb-11 14- 1 Scooter Noel. . Referring Provider: Cale Santoyo, [address] [place], [place] [address], [address]. tel:[phone], [address] [facility] 300, [place], [place], [id number], [place] tel:[phone] [facility] No Information Feb- 2- 1 Khari Graham. . Referring Provider: Cale Santoyo, [address] [place], [place] [address], [address]. tel:[phone], [address], [id number], [place] tel:[phone] [facility] No Information Mar-3 1- 1 Atre Pranoti. . Referring Provider: Cale Santoyo, [address] [place] [address], [address]. tel:[phone], [address], [id number], [place] tel:[phone] [facility] No Information Mar-3 0-202 1 Atre Pranoti. . Referring Provider: Cale Santoyo, [address] [place], [place] [address], [address]. tel:[phone], [address], [id number], [place] tel:[phone] [facility] No Information Mar-2 4- 1 Atre Pranoti. . Referring Provider: Cale Santoyo, [address] [place] [address], [address]. tel:[phone], [address], [id number], [place] tel:[phone] [facility] No Information Mar-2 3- 1 Vera Jacinto. . Referring Provider: Cale Santoyo, [address] [place] [address], [address]. tel:[phone], [facility] [place] [address], [place], [place], [id number], [place] tel:[phone] [facility] No Information Mar-0 - 1 Atre Pranoti. . Referring Provider: Cale Santoyo, [address] [place] [address], [address]. tel:[phone], [address] [place] [address], [id number], [place] tel:[phone] [facility] No Information Mar-0 - 1 Atre Pranoti. . Referring Provider: Cale Santoyo, [address] [place] [address], [address]. tel:[phone], [address], [id number], [place] tel:[phone] [facility] No Information b-2 1 Atre Pranoti. . Referring Provider: Cale Santoyo, [facility] [place], [address]. tel:[phone], [address], [id number], [place] tel:[phone] [facility] No Information b- 1 Atre Pranoti. . Referring Provider: Cale Santoyo, [address] [place] [address], [address]. tel:[phone], [address], [id number], [place] tel:[phone] [facility] No Information Dec- 1 Atre Pranoti. . Referring Provider: Cale Santoyo, [address] [place], [address]. tel:[phone] [employer], [address] [place] [address] [place] [address], [id number], tel:[phone] [facility] No Information b 0 1 Atre Pranoti. . Referring Provider: Cale Santoyo, [address] [place], [address]. tel:[phone] [employer], [address] [facility] [address] [place] [address], [id number], tel:[phone] [facility] No Information 0 1 Atre Pranoti. . Referring Provider: Cale Natanael, [address] [place], [address]. tel:[phone] Family History Family Member Type Diagnosis Age At Onset No Information Payers Payer name Insurance type Covered alliance party ID Authoriza tion(s) [place] [facility] [id number] Social History Type Description Quantity Date Captured Comments Sex Male Smoking Status No Information Chief Complaint And Reason For Visit No Information Reason For Referral Reason For Referral No Information History Of Present Illness Encounter Date Complaint History Of Prese nt Illness No Information Functional Status Date Functional Assessmen t No Information Instructions Date Instruction Additional Infor mation Dietary needs education Related to Overweight Prescribed activity/exercise edu cation Related to Overweight Assessments Type Assessment Date No Information Patient Care Teams Name Effective Dates (start - stop) Status Members No Information
[2025-09-20 22:26] VITALS: BP 168/104; PULSE 78; RESP 20; TEMP 36.6; O2SAT 99
--- NOTE | 2025-09-21 00:01 | ECG_ITS ---
Test Date: 2025-09-21 00:49:52 Measurements Intervals [place] Rate: 74 P: 32 NH: 191 QRS: -60 QRSD: 106 T: 27 QT: 393 QTc: 438 Interpretive Statements SINUS RHYTHM INCOMPLETE RIGHT BUNDLE BRANCH BLOCK [90+ ms QRS DURATION, TERMINAL R IN V1/V2, 40+ ms S IN I/aVL/V4/V5/V6] LEFT ANTERIOR FASCICULAR BLOCK [QRS AXIS <= -45, QR IN I, RS IN II] POSSIBLE ANTERIOR MYOCARDIAL INFARCTION , OF INDETERMINATE AGE [30 ms Q WAVE IN V3/V4, OR R < 0.2 mV IN V4] Compared to ECG 07/16/2025 01:09:20 No significant changes Electronically Signed On 09-21-2025 17:53:21 [employer] by Shawn Rivero M.D.
[2025-09-21 00:11] VITALS: PULSE 60; RESP 14; O2SAT 97
[2025-09-21 00:37] VITALS: BP 136/83; PULSE 55; PULSE 76; RESP 15; O2SAT 97; O2SAT 98
--- NOTE | 2025-09-21 00:52 | ED.WEAKNESS ---
HPI - Weakness General Chief complaint: Weakness Stated complaint: weakness, numbness, ETOH+ Time Seen by Provider: 09/21/25 00:45 Source: patient Mode of arrival: EMS Limitations: no limitations History of Present Illness HPI Narrative: This is a 55-year-old male with history of hypertension, DEION, GERD who presents to the ED for chest pain. Patient states that since last night while he was drinking beer he has been having sternal chest pain that does not radiate. He states that it does not radiate. It has since resolved. He has seen a hand marker previously and had a stress test done that was negative. Denies headache, diaphoresis, numbness, shortness of breath, abdominal pain, nausea vomiting. Related Data Home Medications ?Medication ?Instructions ?Recorded ?Confirmed ?Last Taken ?Type albuterol sulfate 90 mcg/actuation 1 puff inhalation Q4H PRN 04/28/20 08/07/24 Unknown History aerosol inhaler Shortness Of Breath Or Wheezing lisinopril 10 mg tablet 40 mg PO DAILY 04/28/20 08/07/24 09/05/23 History amlodipine 5 mg tablet 10 mg PO DAILY 10/16/22 08/07/24 09/05/23 History cyclobenzaprine 10 mg tablet 10 mg PO BID 09/05/23 08/07/24 Unknown History simvastatin 20 mg tablet 20 mg PO DAILY 06/18/24 08/07/24 Unknown History Allergies Allergy/AdvReac Type Severity Reaction Status Date / Time No Known Drug Allergies Allergy Mild Unknown Verified 09/01/25 01:24 Review of Systems Review of Systems: Gen.: Denies fevers or chills Eyes: Denies eye pain or visual change ENT: Denies congestion Respiratory: Denies shortness of breath or cough CV: As per HPI GI: Denies abdominal pain nausea, emesis or diarrhea denies burning, urgency, frequency or hematuria Musculoskeletal: Denies back pain or muscle pain Neuro: Denies numbness, tingling, weakness or focal weakness Skin: Denies rash Except as documented, all other systems reviewed and negative [facility] Past Medical History Medical History Fullness after eating Smoker Chronic GERD DEION (obstructive sleep apnea) Asthma Hypertension Anxiety Surgical History Surgical History No history of previous surgery Family History Family History Father Alcoholism Hypertension Cerebrovascular accident Heart disease Mother Hypertension Depression Heart disease Anxiety Sibling Depression Hypertension Anxiety Social History Social History Smoking packs per day: 1.5 Smoking cigarettes per day: 30.0 Years smoked: 39 Smoking pack-years: 58.50 Tobacco type: cigarettes Alcohol intake: current Drinks per week: 40 Alcohol use details: beer Substance use type: unknown Do You Feel Safe in your Home?: Yes Lack of Transportation: No Lack of Food: Sometimes True Current Housing: I Have Housing Concerned About Future Housing: No Difficulty Paying Gas/Electric Bills: No Difficulty Paying for Meds: No Currently Unemployed: Decline to Answer Education: Grade School Difficulty w/ Childcare or Family Care: Decline to Answer Living arrangements: alone Gender identity (if verbalized by the patient): Male Spiritual care concerns: No Exam Narrative: APPEARANCE: No acute distress, nontoxic, resting in bed EYES: EOMI HEENT: Normocephalic, atraumatic, OMM RESPIRATORY: No respiratory distress Clear to auscultation bilaterally with no rhonchi wheezing or rales. CARDIOVASCULAR: Regular rate and rhythm without murmurs rubs or gallops. ABDOMINAL: Soft, nontender, nondistended, no rebound or guarding MUSCULOSKELETAl: Moves all extremities. No clubbing, cyanosis or edema. NEURO: Awake and alert. Following commands, speech normal, no focal deficits SKIN:: Warm, dry. No rashes lesions or abrasions PSYCHIATRIC: Normal affect/mood, Course Vital Signs Vital signs: Vital Signs Temperature 97.9 F 09/20/25 22:26 Pulse Rate 78 09/20/25 22:26 Respiratory Rate 20 09/20/25 22:26 Blood Pressure 168/104 H 09/20/25 22:26 Pulse Oximetry 99 09/20/25 22:26 Oxygen Delivery Room Air 09/20/25 22:26 Temperature 97.9 F 09/20/25 22:26 Pulse Rate 62 09/21/25 02:00 Respiratory Rate 12 09/21/25 02:00 Blood Pressure 136/83 09/21/25 02:00 Pulse Oximetry 97 09/21/25 02:00 Oxygen Delivery Room Air 09/21/25 00:37 MDM - Weakness MDM Narrative Medical decision making narrative: 55-year-old male Presenting for chest pain. On initial evaluation patient was in no acute distress afebrile, hemodynamic stable. Differentials include but are not limited to: ACS, PE, PNA, bronchitis, costochondritis, pleurisy, viral syndrome, GERD Notable exam findings: Slurring speech. Heart and lungs clear. Notable lab findings: CBC without significant abnormalities. Mild transaminitis likely due to alcohol. UA clear. UDS negative. Troponin negative. EKG showed no concerning findings. Patient was requesting to leave prior to repeat troponin but I have low suspicion cardiac injury at this time. Heart score is 2. At this point, I do not believe that additional troponin is necessary. Patient's EKGs and labs are without significant high risk changes. Cardiac risk factors reviewed. Patient is felt likely low risk for ACS and reasonable for further risk stratification testing as an outpatient. Pain was not sudden or maximal in onset without tearing or ripping quality. No other signs of symptoms suggest aortic dissection.. No pneumonia seen on evaluation today. Patient is felt to be a reasonable candidate for continued evaluation as an outpatient Patient was deemed appropriate for discharge at this time. Patient was advised follow-up with their PCP in the next week for re-evaluation. Patient was agreeable to this plan. Given strict return precautions. Medical Records Attestation: I reviewed the patient's medical records. Lab Data Attestation: I reviewed the patient's lab results. 09/21/25 00:56 09/21/25 00:56 Labs: Lab Results 09/21/25 09/21/25 Range/Units 00:51 00:56 WBC 5.6 (4.5-10.0) K/mm3 RBC 4.89 (4.6-6.20) M/mm3 Hgb 14.5 (14.0-18.0) g/dL Hct 43.8 (42.0-52.0) % MCV 89.6 (80-100) fl MCH 29.7 (26-34) pg MCHC 33.1 (32-36) g/dl RDW 15.4 H (11.5-14.5) % Plt Count 167 (150-375) k/mm3 MPV 10.3 (7.4-10.4) fl Immature Gran % (Auto) 0.7 H (0-0.5) % Neut % (Auto) 59.9 (45.5-73.1) % Lymph % (Auto) 27.0 (18.3-44.2) % [place] % (Auto) 8.4 (2.6-8.5) % Eos % (Auto) 2.7 (0-4.4) % Baso % (Auto) 1.3 H (0.2-1.2) % Lymph # (Auto) 1.51 (0.9-3.2) K/mm3 [place] # (Auto) 0.5 (0.1-0.6) K/mm3 Eos # (Auto) 0.2 (0-0.3) K/mm3 Baso # (Auto) 0.1 (0.0-0.1) K/mm3 Abs Immat Gran (auto) 0.04 H (0.00-0.031) K/mm3 Absolute Neuts (auto) 3.4 (1.3-6.7) K/mm3 Absolute Nucleated RBC 0.000 (0.0-0.012) K/mm3 Nucleated RBC % 0.0 (0.0-0.2) % Sodium 142 (137-145) mmol/L Potassium 4.5 (3.4-5.0) mmol/L Chloride 109 H (98-107) mmol/L Carbon Dioxide 22 (22-30) mmol/L Anion Gap 11 (4-12) mmol/L BUN 6 L (9-20) mg/dL Creatinine 0.69 L (0.7-1.3) mg/dL Estim Creat Clear Calc 113 ml/min Estimated GFR > 60 (59 - ) Glucose 95 (65-110) mg/dL Calcium 8.9 (8.4-10.2) mg/dL Total Bilirubin 0.5 (0.2-1.3) mg/dL AST 75 H (17-59) U/L ALT 51 H (6-50) U/L Alkaline Phosphatase 85 (38-126) U/L Troponin I < 0.012 (0.000-0.034) ng/mL Total Protein 7.4 (6.3-8.2) g/dL Albumin 4.6 (3.5-5.1) g/dL Urine Color Yellow (Yellow) Urine Appearance Clear (Clear) Urine pH 5.5 (5.0-9.0) Ur Specific [place] 1.004 (1.001-1.035) Urine Protein Negative (Negative) mg/dL Urine Glucose (UA) Negative (Negative) mg/dL Urine Ketones Negative (Negative) mg/dL Ur Blood (Man) Negative (Negative) Urine Nitrate Negative (Negative) Urine Bilirubin Negative (Negative) Urine Urobilinogen 0.2 (<2.0) mg/dL Leukocyte Esterase Rfl Negative (Negative) ARNAV/UL Urine Opiates Screen Negative (Negative) Urine Methadone Screen Negative (Negative) Ur Barbiturates Screen Negative (Negative) Ur Phencyclidine Scrn Negative (Negative) Ur Amphetamine Screen Negative (Negative) U Benzodiazepines Scrn Negative (Negative) Urine Cocaine Screen Negative (Negative) U Cannabinoids Screen Negative (Negative) ECG Data EKG #1: Attestation: I personally reviewed and interpreted this ECG as follows: ECG completion date: 09/21/25 ECG completion time: 00:49 Interpretation: Normal sinus rhythm rate of 74, incomplete right bundle-branch block mild left anterior fascicular block, poor R-wave progression, no acute ST or T-wave changes Discharge Plan Discharge Clinical Impression: Chest pain Qualifiers: Chest pain type: unspecified Qualified Code(s): R07.9 - Chest pain, unspecified Alcohol intoxication Qualifiers: Complication of substance-induced condition: uncomplicated Qualified Code(s): F10.920 - Alcohol use, unspecified with intoxication, uncomplicated Patient Disposition: Home Condition: Stable Instructions: Antibiotic Form, Chest Pain (ED) Additional Instructions: Lab work and imaging showed no evidence of heart injury at this time. Follow up with your PCP in the next week for reevaluation. Return to the ED for new or worsening symptoms. Patient Language: Mongolian Prescriptions: No Action lisinopril 10 mg tablet 40 mg PO DAILY albuterol sulfate 90 mcg/actuation HFA aerosol inhaler 1 puff INHALATION Q4H PRN (Reason: Shortness Of Breath Or Wheezing) simvastatin 20 mg tablet 20 mg PO DAILY hydrocortisone [Procto-Med HC] 2.5 % cream with perineal applicator 1 applic RECTAL DAILY 7 Days Qty: 30 0RF erythromycin 5 mg/gram (0.5 %) ointment 0.5 inch EACH EYE QID Qty: 3.5 0RF mupirocin [Centany] 2 % ointment 1 applic topical TID Qty: 22 0RF cyclobenzaprine 10 mg tablet 10 mg PO BID amlodipine 5 mg tablet 10 mg PO DAILY omeprazole 20 mg capsule,delayed release(DR/EC) 20 mg PO .daily Qty: 90 1RF Follow-up/Referrals: Matt Gastelum MD [Primary Care Provider, Family Practice]
[2025-09-21 01:04] LABS: Add Urine Microscopic? NO; Appearance Urine Clear (Clear); Glucose Urine UA Negative (Negative); Leukocyte Esterase Ur Negative LEU/UL (Negative); Nitrate Urine Negative (Negative); Specific Grav Ur 1.004 (1.001-1.035)
[2025-09-21 01:06] VITALS: PULSE 75; RESP 17; O2SAT 95
[2025-09-21 01:08] LABS: Hematocrit 43.8 % (42.0-52.0); Hemoglobin 14.5 g/dL (14.0-18.0); Immature Granulocyte Percent A 0.7 % (0-0.5); Lymphocytes Absolute Auto 1.51 K/mm3 (0.9-3.2); Mean Corpuscular HGB Conc 33.1 g/dl (32-36); Mean Corpuscular Hemoglobin 29.7 pg (26-34); Mean Corpuscular Volume 89.6 fl (80-100); Nucleated Red Blood Cells Absolute Auto 0.000 K/mm3 (0.0-0.012); Nucleated Red Blood Cells Perc 0.0 % (0.0-0.2); Platelet Count Result 167 k/mm3 (150-375); Red Blood Count 4.89 M/mm3 (4.6-6.20); White Blood Count 5.6 K/mm3 (4.5-10.0)
--- OUTSIDE RECORDS SUMMARY | 2025-09-21 01:09 | XMS_ITS | Data Portability ---
Author Organization [facility] Address [address] [place] [address] Care Team Providers Care Retail Analytics Manager Name Role Phone CHRIS EARL Primary Care Provider Assessment No assessment recorded. Plan of Treatment Reminders Order Date Submit Date Provider Last Modified By Organization Details Last Modified Time Details Appointments None recorded. Lab CMP, serum or plasma 2017 018 [facility], [address] [facility], [address], [place], [address], 8 06:19:40 Referral gastroente rologist referral - Please call patient to schedule appt. Venkat 2017 018 florentino Liu MD, [address], [place], [address], 8 08:39:13 neurologis t referral - Please call patient to schedule appt. Thank you 2017 018 florentino Fermin MD PHD, [address], [address], [place], [address], 8 11:26:40 sleep medicine referral - Please call patient to schedule appt. Thank you [email or web address] [facility], [address] [facility], [address], [place], [address], 8 17:28:02 Procedures None recorded. Surgeries None recorded. Imaging US, chuck shen 2017 018 [facility] ([facility] Call Scheduling), [address] [place], [address], 8 17:10:23 MRI, lumbar spine, w/o contrast 2017 018 CHARLIE Not available 8 12:22:47 MRI, cervical spine, w/o contrast 2017 018 CHARLIE Not available 8 12:22:47 FL, modified barium swallow study 2017 018 [facility] ([facility] Call Scheduling), [address] [place], [address], 8 13:48:10 Medication Orders Augmentin 500 mg-125 mg tablet 2017 018 [facility] [address] [facility], [address] [place], [address], 8 11:26:14 fluticason e propionate 50 mcg/actuat ion nasal spray,susp ension 2017 018 INTERFACE Not available 8 16:18:39 Ensure Active Protein-Mu scle oral liquid 2017 INTERFACE Not available 8 16:16:39 Patient TargetsNo targets recorded. Patient Instructions Encounter Date Encounter Id Patient Instructions Last Modified By Organization Details Last Modified Time 11/15/2017 [id number] Quitting Tobacco : Care Instructions [facility] Not available 11/15/2017 16:16:24 chronic obstructive pulmonary disease (COPD): care instructions [facility] Not available 11/15/2017 16:16:24 learning about copd and how to prevent lung infections si Not available 11/15/2017 16:16:24 snoring: care instructions [facility] Not available 11/15/2017 16:16:24 07/10/2018 [id number] allergies: care instructions [facility] Not available 07/10/2018 16:18:03 managing your allergies: care instructions [facility] Not available 07/10/2018 16:18:03 07/23/2018 [id number] influenza (flu) vaccine: care instructions [facility] Not available 07/23/2018 13:05:34 09/29/2018 [id number] cervical spinal stenosis: care instructions [facility] Not available 09/29/2018 17:04:27 10/16/2018 [id number] Quitting Tobacco : Care Instructions [facility] Not available 10/16/2018 16:31:02 Acute Sinusitis: Care Instructions [facility] Not available 10/16/2018 16:31:01 chronic obstructive pulmonary disease (COPD): care instructions [facility] Not available 10/16/2018 16:31:02 learning about copd and how to prevent lung infections [facility] Not available 10/16/2018 16:31:02 Reason for Referral Please call patient to sched [facility] appt. Thank you Referring Physician: Chris Earl, Internal Medicine, Encounter Date: 11/15/2017 Neurologist Referral for Lum bar radiculopathy Please call patient to schedule appt. Thank you Referring Physician: Chris Earl Internal Medicine, Encounter Date: 07/10/2018 Seal Mixer Referral for Painless rectal bleeding Please call patient to schedule appt. Thankyou Referring Physician: Chris Earl Internal Medicine, Encounter Date: 10/16/2018 Results Created Date Observation Date Name Description Value Unit Range Abnormal Flag Note LastModifiedBy Organization Detail LastModifiedTime 12/11/19 18 12/12/2017 CMP, serum or plasm a glucose, serum 78 mg/dL 65-99 Not Available [facility] ([facility]) [address] [place], [address], 12/12/2017 06:19:40 12/11/19 18 12/12/2017 CMP, serum or plasm a BUN 8 mg/dL 6-24 Not Available [facility] ([facility]) [address] [place], [address], 12/12/2017 06:19:40 12/11/19 18 12/12/2017 CMP, serum or plasm a creatinine, serum 0.82 mg/dL 0.76-1 .27 Not Available [facility] ([facility]) [address] [facility] [place], [address], 12/12/2017 06:19:40 12/11/19 18 12/12/2017 CMP, serum or plasm a eGFR if nonafricn AM 105 mL/mi n/1.7 3 >59 Not Available [facility] ([facility]) [address] [facility] [place], [address], 12/12/2017 06:19:40 12/11/19 18 12/12/2017 CMP, serum or plasm a eGFR if africn AM 121 mL/mi n/1.7 3 >59 Not Available [facility] ([facility]) [address] [facility] [place], [address], 12/12/2017 06:19:40 12/11/19 18 12/12/2017 CMP, serum or plasm a BUN/creatini ne ratio 10 9-20 Not Available [facility] ([facility]) [address] [place], [address], 12/12/2017 06:19:40 12/11/19 18 12/12/2017 CMP, serum or plasm a sodium, serum 144 mmol/ L 134-14 4 Not Available [facility] ([facility]) [address] [facility] [place], [address], 12/12/2017 06:19:40 12/11/19 18 12/12/2017 CMP, serum or plasm a potassium, serum 4.7 mmol/ L 3.5-5. 2 Not Available [facility] ([facility]) [address] [facility] [place], [address], 12/12/2017 06:19:40 12/11/19 18 12/12/2017 CMP, serum or plasm a chloride, serum 100 mmol/ L 96-106 Not Available [facility] ([facility]) [address] [facility] [place], [address], 12/12/2017 06:19:40 12/11/19 18 12/12/2017 CMP, serum or plasm a carbon dioxide, total 27 mmol/ L 18-29 Not Available [facility] ([facility]) [address] [facility] [place], [address], 12/12/2017 06:19:40 12/11/1912/12/2017 CMP, serum or plasm a calcium, serum 9.9 mg/dL 8.7-10 .2 Not Available [facility] ([facility]) [address] [facility] [place], [address], 12/12/2017 06:19:40 12/11/1912/12/2017 CMP, serum or plasm a protein, total, serum 7.1 g/dL 6.0-8. 5 Not Available [facility] ([facility]) [address] [place], [address], 12/12/2017 06:19:40 12/11/1912/12/2017 CMP, serum or plasm a albumin, serum 4.5 g/dL 3.5-5. 5 Not Available [facility] ([facility]) [address] [place], [address], 12/12/2017 06:19:40 12/11/1912/12/2017 CMP, serum or plasm a globulin, total 2.6 g/dL 1.5-4. 5 Not Available [facility] ([facility]) [address] [place], [address], 12/12/2017 06:19:40 12/11/1912/12/2017 CMP, serum or plasm a A/G ratio 1.7 1.2-2. 2 Not Available [facility] ([facility]) [address] [place], [address], 12/12/2017 06:19:40 12/11/1912/12/2017 CMP, serum or plasm a bilirubin, total 0.4 mg/dL 0.0-1. 2 Not Available [facility] ([facility]) [address] [place], [address], 12/12/2017 06:19:40 12/11/19 18 12/12/2017 CMP, serum or plasm a alkaline phosphatase, S 73 IU/L 39-117 Not Available [facility] ([facility]) [address] [facility], [place], [address], 12/12/2017 06:19:40 12/11/19 18 12/12/2017 CMP, serum or plasm a AST (SGOT) 19 IU/L 0-40 Not Available [facility] ([facility]) [address] [facility], [place], [address], 12/12/2017 06:19:40 12/11/19 18 12/12/2017 CMP, serum or plasm a ALT (SGPT) 13 IU/L 0-44 Not Available [facility] ([facility]) [address] [facility], [place], [address], 12/12/2017 06:19:40 12/18/19 18 08/28/2017 XR, chest , 2 view No observ ation record ed. [facility] Not Available 2017 16:56:18 12/18/19 18 08/28/2017 CT, neck, soft tissu e, w/ contr ast No observ ation record ed. [facility] Not Available 2017 16:56:18 07/16/20 18 07/16/2018 FL, modif ied ivan esquivel ow study No observ ation record ed. [facility] (Imaging) [address] [place], [address], 07/16/2018 18:12:50 08/20/20 18 08/18/2017 CT, abdom en + pelvi s, w/o contr ast No observ ation record ed. [facility] Not Available 2017 16:48:37 10/01/20 18 09/30/2018 MRI, lumba r spine , w/o contr ast No observ ation record ed. [email or web address] [address], [place], [address], 10/10/2018 09:38:44 10/01/20 18 09/30/2018 MRI, cervi jenn spine , w/o contr ast No observ ation record ed. [email or web address] [facility] [address], [place], [address], 10/10/2018 09:38:45 01/02/20 19 01/02/2019 CT, maxil lofac ial, w/o contr ast No observ ation record ed. [email or web address] (Imaging) [address] [place], [address], 01/02/2019 17:29:34 02/04/20 19 02/03/2019 XR, cervi jenn spine No observ ation record ed. [email or web address] [address], [place], [address], 02/03/2019 17:21:30 11/17/19 21 11/16/2020 XR, ribs, unila teral No observ ation record ed. [facility] [address] [place], [address], 11/17/2020 12:02:34 07/21/20 21 07/20/2021 XR, chest No observ ation record ed. [facility] ([facility] Call Scheduling) [address] [place], [address], 07/21/2021 12:07:59 Result Notes None recorded. Problems Name Problem SNOMED Code Status Onset Date Resolution Date Notes Provider Name and Address Organization Details Recorded Time Acute sinusitis 82664018 Active Danika Ramirez RN null, [facility] 4 14:35:11 Chronic obstructive pulmonary disease 63359784 Active Danika Ramirez RN null, [facility] 4 14:35:11 Tobacco dependence syndrome 60081566 Active Danika Ramirez RN null, [place] [facility] 4 14:35:11 Problem Notes None recorded. Medical [...] completed Not Available Not Available Not Available [facility] Penicilli n VK 500 mg tablet Take [...] e 50 mcg/actua tion nasal spray,aleks pension Dana 1 spray every day by intranas al [...] 73 /min 116/76 mm[Hg] Ermias Briceño MA [facility] 8 15:27:44 Date Recorded Body height Body mass index (BMI) Body weight Body temperature Oxygen saturation Oxygen saturation in Arterial blood by Pulse oximetry Heart rate Systolic And Diastolic Provider Name and Address Organization Details Last Updated DateTime 8 183.52 cm 20.2 kg/m2 34993.8 6 g 97.8 [degF] 100 % 100 % 62 /min 110/74 mm[Hg] Ermias Briceño MA [facility] 8 15:35:43 Date Recorded Body height Body mass index (BMI) Body weight Body temperature Oxygen saturation Oxygen saturation in Arterial blood by Pulse oximetry Heart rate Systolic And Diastolic Provider Name and Address Organization Details Last Updated DateTime 8 183.52 cm 20.1 kg/m2 73803.2 6 g 98.1 [degF] 98 % 98 % 61 /min 110/70 mm[Hg] Ermias Briceño MA [facility] 8 12:38:52 Date Recorded Body height Body mass index (BMI) Body weight Body temperature Oxygen saturation Oxygen saturation in Arterial blood by Pulse oximetry Heart rate Systolic And Diastolic Provider Name and Address Organization Details Last Updated DateTime 8 183.52 cm 19.9 kg/m2 76795.6 7 g 97.8 [degF] 98 % 98 % 70 /min 118/74 mm[Hg] Ermias Briceño MA [facility] 8 16:22:53 Date Recorded Body height Body mass index (BMI) Body weight Body temperature Oxygen saturation Oxygen saturation in Arterial blood by Pulse oximetry Heart rate Systolic And Diastolic Provider Name and Address Organization Details Last Updated DateTime 8 183.52 cm 20.1 kg/m2 95940.7 g 98.3 [degF] 100 % 100 % 72 /min 124/84 mm[Hg] Ermias Briceño MA [facility] 8 15:52:28 Social History None recorded. Functional [...] Skin Problems N Anemia N Heart Attack (ME) N Diabetes N Seizures/Epilepsy N Asthma N Allergies N Hepatitis N Osteoporosis N Heart Failure N Immunizations Vaccine Type Date Status Note Provider Nam e and Address Organization Details Recorded Time COVID-19, mRNA, LNP-S, PF, 30 mcg/0.3 mL dose 1 completed Not Available [facility] 07/26/2021 06:01:46 Influenza, split virus, quadrivalent, preservative 7 completed Not Available [facility] 11/28/2019 02:34:47 Influenza, split virus, quadrivalent, PF 8 completed Not Available [facility] 11/28/2019 02:43:42 Past Encounters Encounter ID Performer Location Encounter Start Date Encounter Closed Date Diagnosis/Indication Diagnosis SNOMED-CT Code Diagnosis ICD10 Code Diagnosis IMO Codes Diagnosis Note [id number] MD Sofia Henao (Adult Med) [address] [place] [address] [id number] 10/26/2014 13:20:31 10/26/2014 17:43:42 Acute sinusitis 71479760 Chronic ob structive pulmonary disease 16417241 Tobacco de pendence syndrome 38530489 Adult [facility] th examination [id number] MD Sofia Henao (Adult Med) [address] [place] [address] [id number] 01/08/2017 15:09:50 01/08/2017 16:24:41 Chronic obstructive pulmonary disease 05591414 J44.9 Tobacco de pendence syndrome 78263967 F17.667 [id number] [facility] [address] [place] [address] [id number] 02/05/2017 14:52:56 02/05/2017 18:07:45 Acute stress disorder 44341387 F43.0 BP re-checked later with larger cuff in sitting position on left arm the reading is 150/80 mmhg. Tobacco de pendence syndrome 23878823 F17.300 [id number] MD Sofia Henao (Adult Med) [address] [place] [address] [id number] 05/20/2017 12:18:57 05/20/2017 13:40:27 Dysphagia 42969233 R13.10 Feeling some thing in the throat which makes him hard to swallowing solid food but no visible lesion in inspection in this office, no neck llymphaden opathy. [id number] MD Sofia Henao (Adult Med) [address] [place] [address] [id number] 07/29/2017 12:02:47 07/29/2017 13:29:04 Dysphagia 28493213 R13.10 Feeling some thing in the throat which makes him hard to swallowing solid food but no visible lesion in inspection in this office, no neck llymphaden opathy. Chronic ob structive pulmonary disease 05994483 J44.9 Tobacco de pendence syndrome 17668707 F17.290 Used to smoke 1-2 pk/day since age of 14. [id number] MD Sofia Henao (Adult Med) [address] [place] [address] [id number] 09/03/2017 13:15:34 09/04/2017 13:26:30 Chronic neck pain 5512485894 107 M54.2 Esophageal dysphagia 408 66031 R13.19 weight loss, needs nutritonal supplement . [id number] MD Sofia Henao (Adult Med) [address] [place] [address] [id number] 0 09/30/2017 14:42:30 09/30/2017 17:20:47 Abnormal weight loss 287749978 R63.4 Chronic ob structive pulmonary disease 74099398 J44.9 Nicotine dependence 5629 4008 F17.200 History of thyroid disorder 218813089 Z86.39 Administra tion of influenza vaccine 58352732 Z23 He tolerated shot well. Chronic anxiety 63151186 9 F41.9 Chronic neck pain 248840 9321 107 M54.2 Will go to [facility]. Acid reflux 228780433 K2 1.9 [id number] [facility] [address] [place] [address] [id number] 11/15/2017 15:01:43 11/15/2017 16:34:23 Pharyngeal dryness 570222691 J39.2 Has been evaluated by ENT. Garlandaine d weight loss 644475897 R63.4 Nicotine dependence 5629 4008 F17.200 Chronic ob structive pulmonary disease 63288929 J44.9 Snoring symptoms 0364869 00 R06.83 Weakness present 3012660 07 M62.81 [id number] MD Sofia Henao (Adult Med) [address] [place] [address] [id number] 07/10/2018 14:52:45 07/10/2018 16:57:33 Pharyngeal dysphagia 1199909838 9105 R13.13 Chronic neck pain 242411 4636 107 M54.2 Will go to [facility]. Lumbar radiculopathy 128 192872 M54.16 From previous injury. Esophageal dysphagia 408 28606 R13.19 weight loss, needs nutritonal supplement . Allergic rhinitis 165554 04 J30.9 He is going to contact previous ENT Dr. alford again regarding to his nose issue. [id number] MD Sofia Henao (Adult Med) [address] [place] [address] [id number] 0 07/23/2018 12:13:45 07/24/2018 10:31:30 Administration of influenza vaccine 26044323 Z23 He tolerated shot well. Esophageal dysphagia 408 91225 R13.19 weight loss, needs nutritonal supplement . Abnormal modified barium swallowing . He has gained weight, MBS reported narrow at C5-6 level, copy of report provided to patient , will fax to his GI specialist at [facility] as his request today, 07-23-2019 . fax [phone] Isabell Livingston. [id number] Chris Earl MD [facility] (Adult Med) [address] [place] [address] [id number] 09/29/2018 15:58:39 09/30/2018 11:37:13 Spinal stenosis in cervical region 29615060 M48.02 REQUIRE OPEN mri Lumbar radiculopathy 128 139619 M54.16 From previous injury.REQ UIRE OPEN MRI. [id number] [facility] [address] [place] [address] [id number] 10/16/2018 15:36:07 10/17/2018 09:58:00 Painless rectal bleeding 887868803 K62.5 Cervical radiculopathy 32381511 M54.12 He has disc film and copies of report, awaiting the appointmen t of neurosurge ry referral. Lumbosacra l radiculopathy 7395688 M54.17 He has disc film and copy of report, awaiting for the appointmen t of neurosurge ry referral. Acute sinusitis 15952881 J01.90 Chronic ob structive pulmonary disease 13334511 J44.9 Nicotine dependence 5629 4008 F17.200 Gallstone 925509598 K80. 20 Health Concerns Section Related Observation LastModified by Organization Detai ls LastModified Time None Recorded Concern Status LastModified by Organization Details LastModified Time None Recorded Advance Directives Directive None Recorded Payers Insurance Date Sequence Insurance Name Policy Number Policy Waggoner Covered Member ID Waggoner Member ID Guarantor Name 01/08/2017 1 [facility] (MEDICAID HMO) Ernesto Will [id number] Ernesto Solis 11/25/2018 1 [facility] - DOS PRIOR TO 2021 (MEDICAID REPLACEMENT - HMO) [place] Will [id number] Ernesto Will 05/22/2017 2 [place] Ernesto Will [id number] Ernesto Solis Notes Date Note Type Note Provider Name and Address Organization Details Recorded Time 11/15/2017 text/html He did not picker the lorazepam, on ensure, smokes cigarettes. He had been evaluated by ENT and GI with EGD scope, chronic neck and back and whole body pain, will see a neurologist in the near future. Weight still not coming up. Chris Earl MD Attn: [address]ing[address] [place], [address], [facility] 11/15/2017 16:32:00 07/10/2018 text/html ROS as noted in the HPI 1. History of pharyngeal dysphagia, had dilatation done in [facility], certain food just can not be consumed. like steak /hamburger due to swalloing issue, on ensure supplement. Has not had modified barium swallowing test yet.2. Chronic back and neck pain from previous injury, not a candidate for operation , wants neurology referral at this side of [place]. 3. Nicotine dependence, has no intention of quitting. NKDA. Chris Earl MD Attn: Accounting[address] [place], [address], [facility] 07/10/2018 16:21:22 09/29/2018 text/html ROS as noted in the HPI Cervical spine stenosis, and lower back radiculopathy. Asking for the MRI of cervical spine and lumbAR SPINE. Chris Earl MD Attn: Accounting[address] [place], [address], [facility] 09/29/2018 17:09:23 10/16/2018 text/html ROS as noted in the HPI Spinal stenosis on C-spine and lumbar spine stenosis with radiculopathy, will see a neurosurgeon, also has sinus congestion, a smoker, off and on pain less rectal bleeding. NKDA. Chris Earl MD Attn: Accounting[address] [facility], [place], [address], [facility] 10/16/2018 16:31:46
--- OUTSIDE RECORDS SUMMARY | 2025-09-21 01:09 | XMS_ITS | Clinical Summary ---
Author Organization [facility] Address [facility] [place] [address] Care Team Providers Care Automobile Detailer Name Role Phone Matt Gastelum MD Primary Care Provider + [phone] Ramon Roldan MD Unavailable Unavailabl e Sunil [...] Vaccines (1 of 2) 2019 PHQ-2 (Physician Curtis) 11/11/2024 COVID-19 Vaccine ( - 2024-2 6 [...] patient's age to complete this topic Insurance [employer] MEDIC[employer] Care Teams Automobile Detailer Relationship Specialty Start Date End Date Matt Gastelum MD [address] [place] [address] PCP - General FAMILY PRACTICE 04/16/19 Ramon Roldan MD [address] [place] [address] Surgeon NEUROLOGICAL SURGERY 06/26/19 Sunil Livingston MD [address] [place] [address] GASTROENTEROLOGY 06/26/19
--- OUTSIDE RECORDS SUMMARY | 2025-09-21 01:09 | XMS_ITS | Clinical Summary ---
Author Organization [facility] Address [address] [facility] [place] [address] Phone Care Team Providers Care Assistant Women'S Basketball Coach Name Role Phone Matt Gastelum MD Primary Care Provider [phone] Allergies No known active allergies Medications lisinopriL [...] 2019 INFLUENZA VACCINE (#1) 2025 Care Teams Assistant Women'S Basketball Coach Relationship Specialty Start Date End Date Matt Gastelum MD [address] [place] [address] PCP - General Family Practice 07/12/20
[2025-09-21 01:14] LABS: Alanine Aminotransferase 51 U/L (6-50); Albumin Level 4.6 g/dL (3.5-5.1); Alkaline Phosphatase 85 U/L (38-126); Anion Gap 11 mmol/L (4-12); Aspartate Amino Transferase 75 U/L (17-59); Bilirubin,Total 0.5 mg/dL (0.2-1.3); Blood Urea Nitrogen 6 mg/dL (9-20); Calcium 8.9 mg/dL (8.4-10.2); Carbon Dioxide 22 mmol/L (22-30); Chloride 109 mmol/L (98-107); Estimated CRCL calculation 113 ml/min; Estimated Glomerular Filt Rate > 60; Glucose 95 mg/dL (65-110); Potassium 4.5 mmol/L (3.4-5.0); Sodium 142 mmol/L (137-145); Total Protein 7.4 g/dL (6.3-8.2)
[2025-09-21 01:16] VITALS: BP 142/92; PULSE 76; RESP 13; O2SAT 98
[2025-09-21 01:19] LABS: Cannabinoid Screen Urine Negative (Negative)
[2025-09-21 01:27] LABS: Troponin I < 0.012 ng/mL (0.000-0.034)
[2025-09-21 01:31] VITALS: PULSE 69; RESP 18; O2SAT 98
[2025-09-21 02:00] VITALS: BP 136/83; PULSE 62; RESP 12; O2SAT 97
== END 2025-09-21 01:49 | disposition home or self-care (01) ==
PROVIDERS: Emergency Provider Student in an Organized Health Care Education/Training Program; PCP Family Medicine
DX: R07.9 Chest pain, unspecified (principal); F10.920 Alcohol use, unspecified with intoxication, uncomplicated; I45.10 Unspecified right bundle-branch block; F17.210 Nicotine dependence, cigarettes, uncomplicated; K21.9 Gastro-esophageal reflux disease without esophagitis; G47.30 Sleep apnea, unspecified; J45.909 Unspecified asthma, uncomplicated; I10 Essential (primary) hypertension; F41.9 Anxiety disorder, unspecified
CPT/HCPCS: 36415; 80053; 80307; 81003; 84484; 85025; 93005; 99284

== ENCOUNTER 2025-10-07 19:00 | Emergency (ER) | payer MEDICARE, MEDICAID, SELFPAY ==
--- NOTE | ~2025-10-07 | XR_ITS ---
PROCEDURE/PROCEDURES: Right RIBS with PA chest, x-ray HISTORY: Pain COMPARISON(S): None. TECHNIQUE: 4 radiographic images were submitted for interpretation. FINDINGS: Bones: There are no fractures seen. There are no destructive lesions or other lesions identified. IMPRESSION: No acute abnormalities are seen. Reviewed, dictated and finalized at location A. T WRITER
--- OUTSIDE RECORDS SUMMARY | 2025-10-07 19:03 | XMS_ITS | Clinical Summary ---
Author Organization [facility] Address [address] [facility] [place] [address] Phone Care Team Providers Care Supervisor Compounding And Finishing Name Role Phone Matt Gastelum MD Primary Care Provider [phone] Allergies No known active allergies Medications lisinopriL [...] INFLUENZA VACCINE (#1) 2025 Care Teams Supervisor Compounding And Finishing Relationship Specialty Start Date End Date Matt Gastelum MD [address] [place] [address] PCP - General Family Practice 07/12/20
--- OUTSIDE RECORDS SUMMARY | 2025-10-07 19:03 | XMS_ITS | Clinical Summary ---
Author Organization [facility] Address [address] [place] [address] Care Team Providers Care Sponge Maker Name Role Phone Matt Gastelum MD Primary Care Provider [phone] Source Comments [facility],non-owned Affiliates and Associated Physician Practices is amultiple site organization consisting of ambulatory clinics and hospital sitesin [place], [place], [place] and [place]. This disclosure is being madepursuant to the Care Everywhere program and may not contain all information available regarding this patient. Last updated 18.[facility] Allergies No known active allergies Medications * [...] fluticasone propionate (FLONASE) 50 MCG/ACT nasal spray Imperial 50 sprays into each nostril 2 times [...] on file Legal Sex Male 5:13 PM [employer]ER [employer] Gender Identity Not on file Sexual Orientation Not on file Last Filed Vital Signs Vital Sign Reading Time Taken Comments Blood Pressure 153/107 06/05/2021 2:18 PM CDT Pulse 82 06/05/2021 2:18 PM CDT Temperature 36.3 C (97.3 F) 06/05/2021 2:18 PM CDT Respiratory Rate 18 10/24/2017 10:06 AM MILLER [employer] Oxygen Saturation 97% 06/05/2021 2:18 PM CDT [...] CALENDAR YEAR 2024 COVID-19 VACCINE (1 - 2024-2 6 season) 2025 INFLUENZA VACCINE (#1) 2025 0, [...] patient's age to complete this topic Insurance [facility] MEDICARE ADV MEDICAID - OUT OF STATE Care Teams Sponge Maker Relationship Specialty Start Date End Date Matt Gastelum MD [address] [place] [address] PCP - General 01/04/21
--- OUTSIDE RECORDS SUMMARY | 2025-10-07 19:03 | XMS_ITS | Clinical Summary ---
Author Organization [facility] Address [facility] [place] [address] Care Team Providers Care Offset Duplicating Machine Operator Name Role Phone Matt Gastelum MD Primary Care Provider + [phone] Ramon Roldan MD Unavailable Unavailabl e Sunil [...] Vaccines (1 of 2) 2019 PHQ-2 (Physician [place]) 11/11/2024 COVID-19 Vaccine ( - 2024-2 6 [...] patient's age to complete this topic Insurance [employer] Care Teams Offset Duplicating Machine Operator Relationship Specialty Start Date End Date Matt Gastelum MD [address] [place] [address] PCP - General FAMILY PRACTICE 04/16/19 Ramon Roldan MD [address] [place] [address] Surgeon NEUROLOGICAL SURGERY 06/26/19 Sunil Livingston MD [address] [place] [address] GASTROENTEROLOGY 06/26/19
[2025-10-07 19:05] VITALS: BP 150/103; PULSE 89; RESP 20; TEMP 36.4; O2SAT 99
--- NOTE | 2025-10-07 19:13 | ED.GENADULT ---
HPI - General Adult General Chief complaint: Unspecified Stated complaint: Right rib pain after being grabbed and lifted Time Seen by Provider: 10/07/25 19:08 History of Present Illness HPI narrative: 55-year-old male with history of hypertension, DEION, GERD, alcohol use. Patient presents to the emergency department today with right-sided rib cage pain. He states it has been going on for several days after he was at [facility] for anxiety. He states he was lifted up by a nurse over there and he felt like maybe his rib was bruised or out of place. No difficulty in breathing. Did not feel like the wind was knocked out of him and denies any chest pain other than his right-sided anterior lateral ribcage. Has not tried anything at home for symptom control. Denies any other symptoms. Was otherwise in his normal state of health. No other associated trauma. No shortness of breath, vomiting, diaphoresis, abdominal pain, back pain. Ambulatory into the emergency department with a steady gait without difficulty. Related Data Home Medications ?Medication ?Instructions ?Recorded ?Confirmed ?Last Taken ?Type albuterol sulfate 90 mcg/actuation 1 puff inhalation Q4H PRN 04/28/20 08/07/24 Unknown History aerosol inhaler Shortness Of Breath Or Wheezing lisinopril 10 mg tablet 40 mg PO DAILY 04/28/20 08/07/24 09/05/23 History amlodipine 5 mg tablet 10 mg PO DAILY 10/16/22 08/07/24 09/05/23 History cyclobenzaprine 10 mg tablet 10 mg PO BID 09/05/23 08/07/24 Unknown History simvastatin 20 mg tablet 20 mg PO DAILY 06/18/24 08/07/24 Unknown History Allergies Allergy/AdvReac Type Severity Reaction Status Date / Time No Known Drug Allergies Allergy Mild Unknown Verified 10/07/25 20:03 Review of Systems Review of Systems: As reviewed above in HPI All systems reviewed & are unremarkable except as noted in HPI and below PMFSH Past Medical History Medical History Fullness after eating Smoker Chronic GERD DEION (obstructive sleep apnea) Asthma Hypertension Anxiety Surgical History Surgical History No history of previous surgery Family History Family History Father Alcoholism Hypertension Cerebrovascular accident Heart disease Mother Hypertension Depression Heart disease Anxiety Sibling Depression Hypertension Anxiety Social History Social History Smoking packs per day: 1.5 Smoking cigarettes per day: 30.0 Years smoked: 39 Smoking pack-years: 58.50 Smoking status: Current every day smoker Tobacco type: cigarettes Alcohol intake: current Drinks per week: 40 Alcohol use details: beer Substance use type: unknown Lack of Transportation: No Lack of Food: Sometimes True Current Housing: I Have Housing Concerned About Future Housing: No Difficulty Paying Gas/Electric Bills: No Difficulty Paying for Meds: No Currently Unemployed: Decline to Answer Education: Grade School Difficulty w/ Childcare or Family Care: Decline to Answer Living arrangements: alone Gender identity (if verbalized by the patient): Male Spiritual care concerns: No Exam Narrative: GENERAL: Well-appearing, no distress, answering all questions appropriately HEAD: Normocephalic and atraumatic EYES: PERRLA ENT: Nares clear, no rhinorrhea or epistaxis. Mucous membranes moist. NECK: Supple. CHEST: Clear to auscultation, no respiratory distress, symmetric chest rise, tenderness to palpation without any overlying skin deformity or crepitus over the anterior lateral ribcage on the right side underneath the breast. Not extending to the sternum or past the mid axillary line. HEART: Strong symmetric pulses ABDOMEN: Soft, nontender, nondistended EXTREMITIES: Normal range of motion. No extremity edema SKIN: Warm, dry, no rash. NEURO: [No focal deficits]. Alert and oriented [x3.] PSYCH: [Normal mood and affect.] Course Vital Signs Vital signs: Vital Signs Temperature 36.4 C 10/07/25 19:05 Pulse Rate 89 10/07/25 19:05 Respiratory Rate 20 10/07/25 19:05 Blood Pressure 150/103 H 10/07/25 19:05 Pulse Oximetry 99 10/07/25 19:05 Oxygen Delivery Room Air 10/07/25 19:05 Temperature 36.4 C 10/07/25 19:05 Pulse Rate 80 10/07/25 20:17 Respiratory Rate 14 10/07/25 20:17 Blood Pressure 128/90 10/07/25 20:17 Pulse Oximetry 98 10/07/25 20:17 Oxygen Delivery Room Air 10/07/25 19:05 Medical Decision Making MDM Narrative Medical decision making narrative: 55-year-old male with history of hypertension, DEION, GERD, alcohol use. Patient presents to the emergency department today with right-sided rib cage pain. He states it has been going on for several days after he was at [facility] for anxiety. He states he was lifted up by a nurse over there and he felt like maybe his rib was bruised or out of place. No difficulty in breathing. Did not feel like the wind was knocked out of him and denies any chest pain other than his right-sided anterior lateral ribcage. Has not tried anything at home for symptom control. Denies any other symptoms. Was otherwise in his normal state of health. No other associated trauma. No shortness of breath, vomiting, diaphoresis, abdominal pain, back pain. Ambulatory into the emergency department with a steady gait without difficulty. Clear to auscultation, no respiratory distress, symmetric chest rise, tenderness to palpation without any overlying skin deformity or crepitus over the anterior lateral ribcage on the right side underneath the breast. Not extending to the sternum or past the mid axillary line. Suspect musculoskeletal ribcage pain and contusion rather than fracture, pneumothorax or hemothorax. He is hemodynamically stable with normal vital signs and unremarkable exam. Rib series and chest x-ray ordered. He was given lidocaine patch and Tylenol for analgesia. X-ray showed no abnormality. Safe for discharge. Medical Records Medical records reviewed: Yes I reviewed the external patient's medical records. Vital Signs Vital Signs: Vital Signs Temperature 36.4 C 10/07/25 19:05 Pulse Rate 89 10/07/25 19:05 Respiratory Rate 20 10/07/25 19:05 Blood Pressure 150/103 H 10/07/25 19:05 Pulse Oximetry 99 10/07/25 19:05 Oxygen Delivery Room Air 10/07/25 19:05 Temperature 36.4 C 10/07/25 19:05 Pulse Rate 80 10/07/25 20:17 Respiratory Rate 14 10/07/25 20:17 Blood Pressure 128/90 10/07/25 20:17 Pulse Oximetry 98 10/07/25 20:17 Oxygen Delivery Room Air 10/07/25 19:05 Imaging Data Attestation: I personally reviewed and interpreted this imaging study as follows: My impression: Impressions Ribs w/Chest X-Ray 10/07/25 19:50 IMPRESSION: No acute abnormalities are seen. Discharge Plan Discharge Clinical Impression: Rib pain on right side Patient Disposition: Home Condition: Stable Instructions: Antibiotic Form, Rib Contusion (ED) Additional Instructions: No broken ribs or any dislocations. No collapsed lung or any bleeding. Suspect rib contusion. [id number] Tylenol and ibuprofen every 6-8 hours for pain control. [id number] Lidocaine patches to the area that hurts the most. Follow-up with regular doctor. Return with any emergencies. Patient Language: Sinhala Prescriptions: No Action lisinopril 10 mg tablet 40 mg PO DAILY albuterol sulfate 90 mcg/actuation HFA aerosol inhaler 1 puff INHALATION Q4H PRN (Reason: Shortness Of Breath Or Wheezing) simvastatin 20 mg tablet 20 mg PO DAILY hydrocortisone [Procto-Med HC] 2.5 % cream with perineal applicator 1 applic RECTAL DAILY 7 Days Qty: 30 0RF erythromycin 5 mg/gram (0.5 %) ointment 0.5 inch EACH EYE QID Qty: 3.5 0RF mupirocin [Centany] 2 % ointment 1 applic topical TID Qty: 22 0RF cyclobenzaprine 10 mg tablet 10 mg PO BID amlodipine 5 mg tablet 10 mg PO DAILY omeprazole 20 mg capsule,delayed release(DR/EC) 20 mg PO .daily Qty: 90 1RF Follow-up/Referrals: Matt Gastelum MD [Primary Care Provider, Family Practice] Time of Disposition: 20:04
[2025-10-07] MEDS: ACETAMINOPHEN 500 MG TABLET 1000 MG PO (19:17)
[2025-10-07] MEDS: LIDOCAINE 5% PATCH 1 PATCH TRANSDERM (19:17)
[2025-10-07 20:17] VITALS: BP 128/90; PULSE 80; RESP 14; O2SAT 98
== END 2025-10-07 20:15 | disposition home or self-care (01) ==
PROVIDERS: Emergency Provider Student in an Organized Health Care Education/Training Program; PCP Family Medicine
DX: R07.89 Other chest pain (principal); I10 Essential (primary) hypertension; J45.909 Unspecified asthma, uncomplicated; K21.9 Gastro-esophageal reflux disease without esophagitis; G47.33 Obstructive sleep apnea (adult) (pediatric); F17.210 Nicotine dependence, cigarettes, uncomplicated; Z79.899 Other long term (current) drug therapy
CPT/HCPCS: 71101; 99283; A9270